=== PATIENT | female | born 1960 | race Caucasian/White ===

== ENCOUNTER 2016-07-12 20:33 | Inpatient (IN) | payer BC ==
[~2016-07-12] VITALS: Ht 162.6 cm; Wt 97.1 kg
--- NOTE | 2016-07-12 22:11 | PHYS DOC ---
Past Medical History Past Medical History: Cancer, Diabetes-Type II, Hypertension Additional Past Medical Histor: Sciatica Past Surgical History: Appendectomy Additional Past Surgical Histo: Nephrectomy, colectomy Alcohol Use: None Drug Use: None Adult General Chief Complaint Chief Complaint: MECHANICAL FALL [facility] HPI Patient is a 56 year old female presents emergency department stating that she' s been having an increase history of falling recently. She states that she has sciatic pain and discomfort in her left leg. She states today she was walking through her house and she fell patient states she has having right knee pain and discomfort. She also states that she has having right wrist pain and discomfort and shoulder pain and discomfort although she has full range of motion of her upper extremities. Patient does state she has pain in her right wrist. She is unable to fully provide range of motion with the wrist. Patient does have tenderness along the right knee. Patient does not have any other complaints at this time. Patient states that she has been having multiple falls at home recently. She states she does not use a walker at home. Originally denied any loss of consciousness denies any neck pain or discomfort other until palpation patient complained of neck discomfort. Review of Systems Review of Systems Constitutional: Denies fever or chills [] Eyes: Denies change in visual acuity, redness, or eye pain [] HENT: Denies nasal congestion or sore throat [] Respiratory: Denies cough or shortness of breath [] Cardiovascular: No additional information not addressed in HPI [] GI: Denies abdominal pain, nausea, vomiting, bloody stools or diarrhea [] : Denies dysuria or hematuria [] Musculoskeletal: Cervical pain, Right wrist and knee pain Integument: Denies rash or skin lesions [] Neurologic: Denies headache, focal weakness or sensory changes [] Allergies Allergies Allergies Coded Allergies Type Severity Reaction Last Updated Verified No Known Drug Allergies 07/12/16 No Physical Exam Physical Exam Constitutional: Well developed, well nourished, no acute distress, non-toxic appearance. [] HENT: Normocephalic, atraumatic, bilateral external ears normal, oropharynx moist, no oral exudates, nose normal. Bilateral tympanic membranes appear to be normal. Eyes: PERRLA, EOMI, conjunctiva normal, no discharge. [] Neck: Normal range of motion, no tenderness, supple, no stridor. [] Cardiovascular:Heart rate regular rhythm, no murmur [] Lungs & Thorax: Bilateral breath sounds clear to auscultation [] Skin: Warm, dry, no erythema, no rash. [] Back: Tenderness noted along the cervical spine, no deformities no step-offs and no crepitus noted. Extremities: Right wrist and right knee tenderness, no cyanosis, no clubbing, ROM intact, no edema. She with decreased range of motion of the right wrist. Patient was tender along the lateral medial and knee area. No bruising or deformity noted. Neurologic: Alert and oriented X 3, normal motor function, normal sensory function, no focal deficits noted. [] Psychologic: Affect normal, judgement normal, mood normal. [] Current Patient Data Vital Signs Vital Signs Date Time Temp Pulse Resp B/P Pulse Ox O2 Delivery O2 Flow Rate FiO2 07/12/16 22:30 98 140/82 Room Air 07/12/16 20:44 97.5 16 95 97.5 Lab Values Laboratory Tests Test 07/12/16 22:50 White Blood Count 9.5x10^3/uL (4.0-11.0) Red Blood Count 4.42x10^6/uL (3.50-5.40) Hemoglobin 12.4g/dL (12.0-15.5) Hematocrit 37.9% (36.0-47.0) Mean Corpuscular Volume 86fL (79-100) Mean Corpuscular Hemoglobin 28pg (25-35) Mean Corpuscular Hemoglobin Concent 33g/dL (31-37) Red Cell Distribution Width 13.7% (11.5-14.5) Platelet Count 200x10^3/uL (140-400) Neutrophils (%) (Auto) 65% (31-73) Lymphocytes (%) (Auto) 26% (24-48) Monocytes (%) (Auto) 6% (0-9) Eosinophils (%) (Auto) 2% (0-3) Basophils (%) (Auto) 1% (0-3) Neutrophils # (Auto) 6.1x10^3uL (1.8-7.7) Lymphocytes # (Auto) 2.5x10^3/uL (1.0-4.8) Monocytes # (Auto) 0.6x10^3/uL (0.0-1.1) Eosinophils # (Auto) 0.2x10^3/uL (0.0-0.7) Basophils # (Auto) 0.1x10^3/uL (0.0-0.2) Sodium Level 142mmol/L (136-145) Potassium Level 4.0mmol/L (3.5-5.1) Chloride Level 103mmol/L (98-107) Carbon Dioxide Level 30mmol/L (21-32) Anion Gap 9 (6-14) Blood Urea Nitrogen 23mg/dL (7-20) H Creatinine 1.5mg/dL (0.6-1.0) H Estimated GFR (Cockcroft-Gault) 35.7 Glucose Level 151mg/dL (70-99) H Calcium Level 9.8mg/dL (8.5-10.1) Laboratory Tests 07/12/16 22:50 Laboratory Tests 07/12/16 22:50 Radiology/Procedures Radiology/Procedures Right wrist x-ray as interpreted by me with no acute fracture or dislocation Right knee x-ray with no acute fracture or dislocation; large lytic lesion to the proximal lateral tibia Head CT without contrast IMPRESSION Large area of vasogenic edema in the left frontal lobe could be metastatic cancer or GBM or lymphoma. CT C-spine without contrast: Axial helical images of the cervical spine obtained without contrast and axial coronal sagittal reconstruction was performed. The vertebral bodies are aligned. There is no loss of vertebral body stature. The C1-C2 relationship is normal. There is no prevertebral soft tissue swelling. Evaluation of the central canal is limited without contrast. There is posterior disc osteophytic ridges at multiple levels causing flattening of the thecal sac. There does not appear to be gross flattening the cord. There is moderate narrowing of multiple neuroforamen. Cervical spine CT without contrast Impression Degenerative changes. No acute findings. See CT head without contrast. Electronically signed by: Andry Serra MD (Jul 12, 2016 22:37:14) Course & Med Decision Making Course & Med Decision Making Pertinent Labs and Imaging studies reviewed. (See chart for details) She was noted to have abnormal CT scan on prelim read. After talking with patient patient denies any history of stroke or brain abnormality in the past. Dr. Cho was notified of the CT information. CT report has not been confirmed at this time. Patient will be transferred over to the acute side. X-ray results of the wrist and knee are still pending at this time. Dr. Cho will continue with patient's care and admission process. Accepted care from Miroslava Rivera APRN, after CT head seen abnormal. Formal read as above concerning for mass. She states she has a history of renal cancer and colon cancer that were removed in 2012. She states she was told these were both primary lesions. She no longer follows with an oncologist. Have concern for metastatic disease given abnormality on head CT and right knee x-ray. Will admit for further workup. Discussed case with Dr. Patino, who will admit. Neurology and neurosurgery consultations placed. -Colton Cho MD [place] Disclaimer Dragon Disclaimer This electronic medical record was generated, in whole or in part, using a voice recognition dictation system. Departure Departure Impression: Primary Impression: Brain mass Additional Impressions: Bone lesion Multiple falls Right wrist pain Right knee pain Disposition: ADMITTED INPATIENT Condition: STABLE Referrals: SUSY PATINO MD (PCP) Problem Qualifiers Additional Impressions: Right knee pain Chronicity: acute Qualified Code: M25.561 - Pain in right knee MIROSLAVA RIVERA NP Jul 12, 2016 22:11 Leonor CHO MD Jul 12, 2016 23:27
--- NOTE | 2016-07-12 22:38 | RAD ---
PROCEDURE CT head and C-spine without contrast HISTORY Fall onto forehead has headache and neck pain CT HEAD WITHOUT CONTRAST Noncontrast axial cross sectional CT scanning of the head was performed. FINDINGS There is a large area of vasogenic edema in the left frontal lobe that results and 5 millimeter [id number] midline shift. There is no extra-axial fluid collections or hydrocephalus. There is no gross bleed. There is no loss of perez-white matter distinction to suggest ischemia. IMPRESSION Large area of vasogenic edema in the left frontal lobe could be metastatic cancer or GBM or lymphoma. CT C-spine without contrast: Axial helical images of the cervical spine obtained without contrast and axial coronal sagittal reconstruction was performed. The vertebral bodies are aligned. There is no loss of vertebral body stature. The C1-C2 relationship is normal. There is no prevertebral soft tissue swelling. Evaluation of the central canal is limited without contrast. There is posterior disc osteophytic ridges at multiple levels causing flattening of the thecal sac. There does not appear to be gross flattening the cord. There is moderate narrowing of multiple neuroforamen. Impression Degenerative changes. No acute findings. See CT head without contrast. PQRS Statement: One or more of the following individualized dose reduction techniques were utilized for this study: 1. Automated exposure control. 2. Adjustment of the mA and/or kV according to patient size. 3. Use of iterative reconstruction technique. Electronically signed by: Andry Serra MD (Jul 12, 2016 22:37:14)
[2016-07-12 22:59] LABS: BASO # 0.1 x10^3/uL (0.0-0.2); BASO % 1 % (0-3); EOS % 2 % (0-3); HEMATOCRIT 37.9 % (36.0-47.0); HEMOGLOBIN 12.4 g/dL (12.0-15.5); LYMPH # 2.5 x10^3/uL (1.0-4.8); LYMPH % 26 % (24-48); MEAN CORPUSCULAR HEMOGLOBIN 28 pg (25-35); MEAN CORPUSCULAR HGB CONC 33 g/dL (31-37); MEAN CORPUSCULAR VOLUME 86 fL (79-100); MONO % 6 % (0-9); NEUT % 65 % (31-73); PLATELET COUNT 200 x10^3/uL (140-400); RED BLOOD COUNT 4.42 x10^6/uL (3.50-5.40); RED CELL DISTRIBUTION WIDTH 13.7 % (11.5-14.5); WHITE BLOOD COUNT 9.5 x10^3/uL (4.0-11.0)
[2016-07-12 23:04] LABS: CALCIUM 9.8 mg/dL (8.5-10.1); CREATININE 1.5 mg/dL (0.6-1.0); GFR 35.7
[2016-07-12] MEDS ORDERED: ACETAMINOPHEN 325 MG TABLET. PO PRN (23:45)
[2016-07-12] MEDS ORDERED: MORPHINE SULFATE 4 MG/ML DISP.SYRIN. IV PRN (23:45)
[2016-07-12] MEDS ORDERED: ONDANSETRON PF 4 MG/2 ML VIAL. IV PRN (23:45)
[2016-07-13 00:27] VITALS: BP 180/85
[2016-07-13] MEDS ORDERED: AMLO5TAB4 PO (03:59)
[2016-07-13] MEDS ORDERED: INSULIN LISPRO (03:59)
[2016-07-13] MEDS ORDERED: LISI-334 PO (03:59)
[2016-07-13] MEDS ORDERED: ERGO500012 PO (03:59)
[2016-07-13] MEDS ORDERED: gabapentin PO (03:59)
[2016-07-13] MEDS ORDERED: INSU300I SQ (03:59)
[2016-07-13 07:36] VITALS: BP 176/97
--- NOTE | 2016-07-13 08:28 | RAD ---
Right knee, 3 views, 07/12/2016: History: Fall, injuries There is a lytic lesion in the proximal tibia. Its margins are ill-defined. There is cortical erosion laterally. There is cortical/periosteal thickening involving the proximal fibular shaft at this same level. No acute knee fracture or dislocation is evident. There is mild spurring at the knee joint and at the patellofemoral articulation. No joint effusion is seen. IMPRESSION: Destructive lesion involving the proximal tibia raising the possibility of malignancy or infection. MR scanning is suggested for further evaluation.
--- NOTE | 2016-07-13 08:29 | RAD ---
Right wrist, 3 views, 07/12/2016: History: Fall, pain No acute fracture or dislocation is identified. There is lucency with a well-defined sclerotic rim in the distal aspect of the navicular bone. The appearance is that of a benign cyst, probably on an arthritic basis. There is mild spurring at the first CMC joint. IMPRESSION: No acute bony abnormality is detected.
[2016-07-13] MEDS: INSULIN DETEMIR 300 UNITS/3 ML INSULN.PEN. SQ SCH (10:00)
[2016-07-13] MEDS: LISINOPRIL 20 MG TABLET PO SCH (10:18)
[2016-07-13] MEDS: AMLODIPINE BESYLATE 5 MG TABLET PO SCH (10:19)
[2016-07-13 11:59] VITALS: BP 188/78
--- NOTE | 2016-07-13 12:01 | PDOC ---
Provider Note Provider Note patient seen consult dictated see orders ANCELMO ZAVALA MD Jul 13, 2016 12:01
[2016-07-13] MEDS ORDERED: LORAZEPAM 0.5 MG TABLET. PO ONE (12:30)
[2016-07-13] MEDS ORDERED: LORAZEPAM 2 MG/ML VIAL IV ONE (13:30)
[2016-07-13] MEDS ORDERED: CONTRAST GIVEN MC PRN (13:45)
[2016-07-13] MEDS ORDERED: IOHEXOL 240 MG/ML 50ML VIAL. PO ONE (13:45)
[2016-07-13] MEDS ORDERED: GADOBUTROL 10 MMOL/10 ML VIAL IV ONE (15:00)
[2016-07-13] MEDS ORDERED: DEXTROSE 50% 25 GM / 50ML DISP.SYRIN. IV PRN (16:00)
--- NOTE | 2016-07-13 16:00 | PDOC ---
PROGRESS NOTES Subjective Subjective Patient admits to some right leg pain. Denies headache or visual problems. Objective Objective Vital Signs Date Time Temp Pulse Resp B/P Pulse Ox O2 Delivery O2 Flow Rate FiO2 07/13/16 11:59 97.4 86 20 188/78 95 Room Air 97.4 Intake and Output 07/13/16 07:00 Intake Total 210 ml Output Total 600 ml Balance -390 ml Intake Oral 210 ml Output Urine Total 600 ml Physical Exam Abdomen: Normal bowel sounds, Soft, No tenderness Heart: Regular rate Extremities: No edema General: Alert, Oriented X3, No acute distress Lungs: Clear to auscultation Assessment Assessment Problems Medical Problems: (1) Bone lesion Status: Acute (2) Brain mass Status: Acute (3) Multiple falls Status: Acute (4) Right knee pain Status: Acute (5) Right wrist pain Status: Acute Plan Plan of Care 1. Metastatic cancer - large brain lesion, also lytic lesion in right tibia. MRI brain and bone scan pending. Patient with history of colon cancer and renal cell cancer, both dx in 2012. Will consult Oncology to help with further evaluation and tx. Neurology and Neurosurgery following. 2. DM2 - not well controlled at home. Continue insulins. 3. HTN - continue home meds. 4. CKD III - stable, follow lab. Comment Review of Relevant I have reviewed the following items tiffany (where applicable) has been applied. Labs Laboratory Tests Test 07/12/16 22:50 07/13/16 00:18 07/13/16 07:54 07/13/16 11:43 White Blood Count 9.5x10^3/uL (4.0-11.0) Red Blood Count 4.42x10^6/uL (3.50-5.40) Hemoglobin 12.4g/dL (12.0-15.5) Hematocrit 37.9% (36.0-47.0) Mean Corpuscular Volume 86fL (79-100) Mean Corpuscular Hemoglobin 28pg (25-35) Mean Corpuscular Hemoglobin Concent 33g/dL (31-37) Red Cell Distribution Width 13.7% (11.5-14.5) Platelet Count 200x10^3/uL (140-400) Neutrophils (%) (Auto) 65% (31-73) Lymphocytes (%) (Auto) 26% (24-48) Monocytes (%) (Auto) 6% (0-9) Eosinophils (%) (Auto) 2% (0-3) Basophils (%) (Auto) 1% (0-3) Neutrophils # (Auto) 6.1x10^3uL (1.8-7.7) Lymphocytes # (Auto) 2.5x10^3/uL (1.0-4.8) Monocytes # (Auto) 0.6x10^3/uL (0.0-1.1) Eosinophils # (Auto) 0.2x10^3/uL (0.0-0.7) Basophils # (Auto) 0.1x10^3/uL (0.0-0.2) Sodium Level 142mmol/L (136-145) Potassium Level 4.0mmol/L (3.5-5.1) Chloride Level 103mmol/L (98-107) Carbon Dioxide Level 30mmol/L (21-32) Anion Gap 9 (6-14) Blood Urea Nitrogen 23mg/dL (7-20) Creatinine 1.5mg/dL (0.6-1.0) Estimated GFR (Cockcroft-Gault) 35.7 Glucose Level 151mg/dL (70-99) Calcium Level 9.8mg/dL (8.5-10.1) Glucose (Fingerstick) 144mg/dL (70-99) 178mg/dL (70-99) 209mg/dL (70-99) Laboratory Tests Test 07/12/16 22:50 07/13/16 00:18 07/13/16 07:54 07/13/16 11:43 White Blood Count 9.5x10^3/uL (4.0-11.0) Red Blood Count 4.42x10^6/uL (3.50-5.40) Hemoglobin 12.4g/dL (12.0-15.5) Hematocrit 37.9% (36.0-47.0) Mean Corpuscular Volume 86fL (79-100) Mean Corpuscular Hemoglobin 28pg (25-35) Mean Corpuscular Hemoglobin Concent 33g/dL (31-37) Red Cell Distribution Width 13.7% (11.5-14.5) Platelet Count 200x10^3/uL (140-400) Neutrophils (%) (Auto) 65% (31-73) Lymphocytes (%) (Auto) 26% (24-48) Monocytes (%) (Auto) 6% (0-9) Eosinophils (%) (Auto) 2% (0-3) Basophils (%) (Auto) 1% (0-3) Neutrophils # (Auto) 6.1x10^3uL (1.8-7.7) Lymphocytes # (Auto) 2.5x10^3/uL (1.0-4.8) Monocytes # (Auto) 0.6x10^3/uL (0.0-1.1) Eosinophils # (Auto) 0.2x10^3/uL (0.0-0.7) Basophils # (Auto) 0.1x10^3/uL (0.0-0.2) Sodium Level 142mmol/L (136-145) Potassium Level 4.0mmol/L (3.5-5.1) Chloride Level 103mmol/L (98-107) Carbon Dioxide Level 30mmol/L (21-32) Anion Gap 9 (6-14) Blood Urea Nitrogen 23mg/dL (7-20) Creatinine 1.5mg/dL (0.6-1.0) Estimated GFR (Cockcroft-Gault) 35.7 Glucose Level 151mg/dL (70-99) Calcium Level 9.8mg/dL (8.5-10.1) Glucose (Fingerstick) 144mg/dL (70-99) 178mg/dL (70-99) 209mg/dL (70-99) Medications Current Medications Ondansetron HCl (Zofran) 4 mg PRN Q8HRS PRN IV NAUSEA/VOMITING; Start 07/12/16 at 23:45; Stop 07/13/16 at 23:44 Morphine Sulfate 4 mg PRN Q2HR PRN IV PAIN; Start 07/12/16 at 23:45; Stop 07/13 at 23:44 Acetaminophen (Tylenol) 650 mg PRN Q4HRS PRN PO FEVER Last administered on 07/13 00:55; Start 07/12/16 at 23:45; Stop 07/13/16 at 23:44 Amlodipine Besylate (Norvasc) 5 mg DAILY08 PO Last administered on 07/13/16 10 :19; Start 07/13/16 at 10:00 Lisinopril (Prinivil) 20 mg DAILY PO Last administered on 07/13/16 10:18; Start 07/13/16 at 10:00 Insulin Detemir (Levemir) 20 units DAILY SQ ; Start 07/13/16 at 10:00 Lorazepam (Ativan) 0.25 mg 1X ONCE PO Last administered on 07/13/16 12:38; Start 07/13/16 at 12:30; Stop 07/13/16 at 12:31; Status DC Lorazepam (Ativan) 0.25 mg 1X ONCE IV Last administered on 07/13/16 14:10; Start 07/13/16 at 13:30; Stop 07/13/16 at 13:31; Status DC Iohexol (Omnipaque 240 Mg/ml) 50 ml 1X ONCE PO Last administered on 07/13/16 14:14; Start 07/13/16 at 13:45; Stop 07/13/16 at 13:46; Status DC Info (Do NOT chart on this entry -- for MONITORING) 1 each PRN DAILY PRN MC SEE COMMENTS; Start 07/13/16 at 13:45; Stop 07/15/16 at 13:44 Gadobutrol (Gadavist) 10 mmol 1X ONCE IV Last administered on 07/13/16 15:04 ; Start 07/13/16 at 15:00; Stop 07/13/16 at 15:01 Active Scripts Active Reported [insulin lispro] [gabapentin] PO DAILY Lisinopril 20 Mg Tablet 1 Tab PO DAILY Ida Bartonostar (Insulin Glargine,Hum.rec.anlog) 300 Unit/1 Ml Insuln.pen 25 Unit SQ DAILY Vitamin D2 (Ergocalciferol (Vitamin D2)) 50,000 Unit Capsule 1 Cap PO WEEKLY Norvasc (Amlodipine Besylate) 5 Mg Tablet 1 Tab PO DAILY08 Vitals/I & O Vital Sign - Last 24 Hours 07/12/16 07/12/16 07/12/16 07/12/16 20:44 22:30 23:00 23:30 Temp 97.5 97.5 Pulse 91 98 92 86 Resp 16 B/P 143/83 140/82 188/74 Pulse Ox 95 95 O2 Delivery Room Air Room Air Room Air Room Air 07/13/16 07/13/16 07/13/16 07/13/16 00:27 02:32 03:15 07:36 Temp 97.7 97.7 97.7 97.7 Pulse 96 103 Resp 20 20 B/P 180/85 176/97 Pulse Ox 99 96 O2 Delivery Room Air Room Air Room Air Room Air 07/13/16 07/13/16 07/13/16 07/13/16 08:00 10:18 10:19 11:59 Temp 97.4 97.4 Pulse 103 103 86 Resp 20 B/P 176/97 176/97 188/78 Pulse Ox 95 O2 Delivery Room Air Room Air Intake and Output 07/12/16 07/12/16 07/13/16 15:00 23:00 07:00 Intake Total 210 ml Output Total 600 ml Balance -390 ml SUSY TOLENTINO MD Jul 13, 2016 16:00
--- NOTE | 2016-07-13 16:14 | RAD ---
MR of the brain with gadolinium, 07/13/2016: History: Brain lesion Imaging of the brain was performed in axial, sagittal and coronal planes utilizing a variety of imaging sequences including T1-weighted, T2-weighted, FLAIR, diffusion-weighted and T2*gradient echo sequences. T1-weighted scans were also obtained following IV injection of 10 cc of the Gadavist contrast agent. There is a 19 mm enhancing mass in the left frontoparietal parasagittal region. There is extensive surrounding vasogenic edema with effacement of overlying cortical sulci. There is a mild mass effect upon the superior aspect of the left lateral ventricle with a mild [id number] midline shift at this level. The third ventricle is not significantly shifted. No other enhancing intracranial lesion is identified. A small signal abnormality in the periventricular deep white matter on the right seen on the FLAIR sequence does not enhance or show restricted diffusion. This is compatible with a small area of chronic ischemic change. The cerebellum and brainstem are unremarkable. IMPRESSION: Single enhancing left frontoparietal mass, most likely a metastasis.
--- NOTE | 2016-07-13 16:14 | RAD ---
CT of the chest, abdomen and pelvis with without contrast, 07/13/2016: History: Brain mass, previous renal cancer and colon cancer Noncontrast scans were obtained as requested. There are multiple bilateral soft tissue pulmonary nodules. The largest nodule on the right lies in the upper lobe and measures 10 mm. There is a 13 mm lobulated nodule in the lingula on the left. Multiple other smaller nodules are present in all of the lobes. The findings suggest metastatic disease. The thoracic aorta is of normal caliber. There is a mildly enlarged subcarinal lymph node measuring 17 mm. There is a 13 mm mediastinal lymph node along the left side of the main pulmonary artery. The unopacified liver shows no abnormality. A small radiopacity along the posterior wall the gallbladder is compatible with a collection of tiny calculi. No pancreatic abnormality is seen. The spleen is of normal size. The left kidney is surgically absent. There is a 17 mm left periaortic nodule at the renal level. The adrenal glands and unopacified right kidney are unremarkable. No pelvic adenopathy is evident. The bowel loops are not dilated. No free fluid is present in the abdomen. There is a ventral hernia centered just to the right of midline above the level of the umbilicus. It contains small bowel loops without evidence of obstruction or incarceration. There are scattered degenerative changes in the spine. Several small lucencies are seen in vertebral bodies including L2 and L3. There is a lucent lesion in the left femoral neck. A definite lytic lesion is present in the medial aspect of the left iliac bone. An 11 mm nodule is present medially in the right breast. IMPRESSION: 1. Numerous bilateral pulmonary nodules compatible with metastatic disease. 2. Mild mediastinal adenopathy. 3. Enlarged left periaortic lymph node at the left nephrectomy site, compatible with tumor recurrence. 4. Scattered lytic bony lesions compatible with multifocal osseous metastatic disease. 5. Ventral hernia containing a nonobstructed bowel loops. 6. Cholelithiasis. 7. Small right breast mass. PQRS Compliance Statement: One or more of the following individualized dose reduction techniques were utilized for this examination: 1. Automated exposure control 2. Adjustment of the mA and/or kV according to patient size 3. Use of iterative reconstruction technique
--- NOTE | 2016-07-13 16:25 | PDOC2 ---
CONSULT Date of Consult Date of Consult DATE: 07/13/16 TIME: 16:20 Reason for Consult Reason for Consult: brain lesion Identification/Chief Complaint Chief Complaint right sided weakness History of Present Illness Reason for Visit: This patient is 56-year-old woman who presented to the emergency room with complaint of having falls recently. She is having some pain in her left leg and also has chronic back pains. She reports she was walking through her house and patient fell states with complaints of some pain in her right knee and discomfort. Patient has been having multiple falls at home which are increased recently she is not using any walker at home. Patient denies any history of previous stroke, seizures, any of incontinence of bladder or bowel or loss of consciousness. Metastasis with history of colon cancer, renal cell cancer Large brain lesion noted on CT scan Will check MRI brain to further evaluate Current Problem List Problem List Problems Medical Problems: (1) Bone lesion Status: Acute (2) Brain mass Status: Acute (3) Multiple falls Status: Acute (4) Right knee pain Status: Acute (5) Right wrist pain Status: Acute Current Medications Current Medications Current Medications Ondansetron HCl (Zofran) 4 mg PRN Q8HRS PRN IV NAUSEA/VOMITING; Start 07/12/16 at 23:45; Stop 07/13/16 at 23:44 Morphine Sulfate 4 mg PRN Q2HR PRN IV PAIN; Start 07/12/16 at 23:45; Stop 07/13 at 23:44 Acetaminophen (Tylenol) 650 mg PRN Q4HRS PRN PO FEVER Last administered on 07/13 00:55; Start 07/12/16 at 23:45; Stop 07/13/16 at 23:44 Amlodipine Besylate (Norvasc) 5 mg DAILY08 PO Last administered on 07/13/16 10 :19; Start 07/13/16 at 10:00 Lisinopril (Prinivil) 20 mg DAILY PO Last administered on 07/13/16 10:18; Start 07/13/16 at 10:00 Insulin Detemir (Levemir) 20 units DAILY SQ ; Start 07/13/16 at 10:00 Lorazepam (Ativan) 0.25 mg 1X ONCE PO Last administered on 07/13/16 12:38; Start 07/13/16 at 12:30; Stop 07/13/16 at 12:31; Status DC Lorazepam (Ativan) 0.25 mg 1X ONCE IV Last administered on 07/13/16 14:10; Start 07/13/16 at 13:30; Stop 07/13/16 at 13:31; Status DC Iohexol (Omnipaque 240 Mg/ml) 50 ml 1X ONCE PO Last administered on 07/13/16 14:14; Start 07/13/16 at 13:45; Stop 07/13/16 at 13:46; Status DC Info (Do NOT chart on this entry -- for MONITORING) 1 each PRN DAILY PRN MC SEE COMMENTS; Start 07/13/16 at 13:45; Stop 07/15/16 at 13:44 Gadobutrol (Gadavist) 10 mmol 1X ONCE IV Last administered on 07/13/16 15:04 ; Start 07/13/16 at 15:00; Stop 07/13/16 at 15:01 Insulin Aspart (Novolog) 0-9 UNITS TIDWMEALS SQ ; Start 07/13/16 at 17:00 Dextrose 12.5 gm PRN Q15MIN PRN IV SEE COMMENTS; Start 07/13/16 at 16:00 Gabapentin (Neurontin) 100 mg BID PO ; Start 07/13/16 at 21:00 Insulin Aspart (Novolog) 10 units TIDAC SQ ; Start 07/13/16 at 16:30 Active Scripts Active Reported [insulin lispro] [gabapentin] PO DAILY Lisinopril 20 Mg Tablet 1 Tab PO DAILY Toujeo Solostar (Insulin Glargine,Hum.rec.anlog) 300 Unit/1 Ml Insuln.pen 25 Unit SQ DAILY Vitamin D2 (Ergocalciferol (Vitamin D2)) 50,000 Unit Capsule 1 Cap PO WEEKLY Norvasc (Amlodipine Besylate) 5 Mg Tablet 1 Tab PO DAILY08 Allergies Allergies: Coded Allergies: No Known Drug Allergies (Unverified , 07/12/16) ROS Review of System not [id number] review of systems. Physical Exam Physical Exam PHYSICAL EXAMINATION: General appearance is in acute distress. HEENT: Normocephalic and nontraumatic. Eyes, nose, ears, and throat are unremarkable. Neck is supple. No lymphadenopathy. No crepitus. Cardiovascular: S1, S2, regular rate and rhythm. Pulmonary: Clear to auscultation bilaterally. Abdomen: Bowel sounds are positive. Abdomen is soft, nontender, and nondistended. Extremities: No rash, lesions, or edema. No restriction of range of motion NEUROLOGICAL EXAMINATION: Alert Oriented to time, place and person. PERRL. EOMI. CN: no focal findings. Muscle tone: within normal. Muscle strength: 5 on left right sided weakness DTR: 2 Plantar reflex: Flexor response bilaterally Gait: not examined in bed. Sensory exam: no abnormal findings. No obvious cerebellar signs elicited. Vitals VITALS Vital Signs Date Time Temp Pulse Resp B/P Pulse Ox O2 Delivery O2 Flow Rate FiO2 07/13/16 11:59 97.4 86 20 188/78 95 Room Air 97.4 Labs Labs Laboratory Tests Test 07/12/16 22:50 07/13/16 00:18 07/13/16 07:54 07/13/16 11:43 White Blood Count 9.5x10^3/uL (4.0-11.0) Red Blood Count 4.42x10^6/uL (3.50-5.40) Hemoglobin 12.4g/dL (12.0-15.5) Hematocrit 37.9% (36.0-47.0) Mean Corpuscular Volume 86fL (79-100) Mean Corpuscular Hemoglobin 28pg (25-35) Mean Corpuscular Hemoglobin Concent 33g/dL (31-37) Red Cell Distribution Width 13.7% (11.5-14.5) Platelet Count 200x10^3/uL (140-400) Neutrophils (%) (Auto) 65% (31-73) Lymphocytes (%) (Auto) 26% (24-48) Monocytes (%) (Auto) 6% (0-9) Eosinophils (%) (Auto) 2% (0-3) Basophils (%) (Auto) 1% (0-3) Neutrophils # (Auto) 6.1x10^3uL (1.8-7.7) Lymphocytes # (Auto) 2.5x10^3/uL (1.0-4.8) Monocytes # (Auto) 0.6x10^3/uL (0.0-1.1) Eosinophils # (Auto) 0.2x10^3/uL (0.0-0.7) Basophils # (Auto) 0.1x10^3/uL (0.0-0.2) Sodium Level 142mmol/L (136-145) Potassium Level 4.0mmol/L (3.5-5.1) Chloride Level 103mmol/L (98-107) Carbon Dioxide Level 30mmol/L (21-32) Anion Gap 9 (6-14) Blood Urea Nitrogen 23mg/dL (7-20) Creatinine 1.5mg/dL (0.6-1.0) Estimated GFR (Cockcroft-Gault) 35.7 Glucose Level 151mg/dL (70-99) Calcium Level 9.8mg/dL (8.5-10.1) Glucose (Fingerstick) 144mg/dL (70-99) 178mg/dL (70-99) 209mg/dL (70-99) Laboratory Tests Test 07/12/16 22:50 07/13/16 00:18 07/13/16 07:54 07/13/16 11:43 White Blood Count 9.5x10^3/uL (4.0-11.0) Red Blood Count 4.42x10^6/uL (3.50-5.40) Hemoglobin 12.4g/dL (12.0-15.5) Hematocrit 37.9% (36.0-47.0) Mean Corpuscular Volume 86fL (79-100) Mean Corpuscular Hemoglobin 28pg (25-35) Mean Corpuscular Hemoglobin Concent 33g/dL (31-37) Red Cell Distribution Width 13.7% (11.5-14.5) Platelet Count 200x10^3/uL (140-400) Neutrophils (%) (Auto) 65% (31-73) Lymphocytes (%) (Auto) 26% (24-48) Monocytes (%) (Auto) 6% (0-9) Eosinophils (%) (Auto) 2% (0-3) Basophils (%) (Auto) 1% (0-3) Neutrophils # (Auto) 6.1x10^3uL (1.8-7.7) Lymphocytes # (Auto) 2.5x10^3/uL (1.0-4.8) Monocytes # (Auto) 0.6x10^3/uL (0.0-1.1) Eosinophils # (Auto) 0.2x10^3/uL (0.0-0.7) Basophils # (Auto) 0.1x10^3/uL (0.0-0.2) Sodium Level 142mmol/L (136-145) Potassium Level 4.0mmol/L (3.5-5.1) Chloride Level 103mmol/L (98-107) Carbon Dioxide Level 30mmol/L (21-32) Anion Gap 9 (6-14) Blood Urea Nitrogen 23mg/dL (7-20) Creatinine 1.5mg/dL (0.6-1.0) Estimated GFR (Cockcroft-Gault) 35.7 Glucose Level 151mg/dL (70-99) Calcium Level 9.8mg/dL (8.5-10.1) Glucose (Fingerstick) 144mg/dL (70-99) 178mg/dL (70-99) 209mg/dL (70-99) Assessment/Plan Assessment/Plan This patient is 56-year-old woman who presented to the emergency room with complaint of having falls recently. She is having some pain in her left leg and also has chronic back pains. She reports she was walking through her house and patient fell states with complaints of some pain in her right knee and discomfort. Patient has been having multiple falls at home which are increased recently she is not using any walker at home. Patient denies any history of previous stroke, seizures, any of incontinence of bladder or bowel or loss of consciousness. Metastasis to the history of colon cancer, renal cell cancer Large brain lesion noted on CT scan Will check MRI brain to further evaluate Bone scan Neurosurgery consultation Oncologic consultation History of diabetes continue treat and monitor Hypertension continue treat and monitor History of chronic kidney disease Continue medical management LEILA MAN MD Jul 13, 2016 16:25
[2016-07-13] MEDS: INSULIN ASPART 300 UNITS/3 ML INSULN.PEN SQ SCH ×2 (17:00→18:10)
--- NOTE | 2016-07-13 17:58 | HP ---
ADMIT DATE: 07/13/2016 CHIEF COMPLAINT: Falls at home and right leg pain. HISTORY OF PRESENT ILLNESS: The patient is a 56-year-old female with a history of colon cancer and renal cell cancer, who presented to the Emergency Room with the above complaint. She reported increasing weakness and falls at home for about the past week. It was unusual for her to have these falls and her family grew concerned. She also had some unusual pain in her right leg and knee, but had not injured her knee with the falls. Initial evaluation in the Emergency Room included a CT of the head without contrast. This showed a large area of vasogenic edema in the left frontal lobe with a midline shift and the patient was admitted for further evaluation. PAST MEDICAL HISTORY: Renal cell cancer, colon cancer, diabetes mellitus type 2 insulin-dependent, hypertension, and chronic kidney disease. PAST SURGICAL HISTORY: Colectomy 12/2012, left nephrectomy 12/2012, and bilateral tubal ligation. ALLERGIES: The patient has no known drug allergies. HOME MEDICATIONS: Amlodipine 5 mg daily, lisinopril 20 mg daily, Toujeo 25 units subQ daily, atorvastatin 20 mg daily, Humalog insulin, and gabapentin 100 mg b.i.d. FAMILY HISTORY: Noncontributory. SOCIAL HISTORY: The patient is , but her is incarcerated. She does not smoke cigarettes or drink alcohol. REVIEW OF SYSTEMS: The patient denies fever or chills. She denies cough or shortness of breath. She denies chest pain or palpitations. She denies unusual headache, double vision, or blurred vision. She denies abdominal pain, nausea, or vomiting. She denies lower extremity edema. Her blood sugars have been fairly well controlled with her insulins. [facility] The patient admits she has not been seen at [facility] for routine followup for several years, although she knows that this was advised. PHYSICAL EXAMINATION: GENERAL: The patient is alert and oriented x3, resting in bed, in no acute distress. HEENT: PERRL, EOMI, sclerae clear. Oropharynx: Mucous membranes moist. NECK: Supple, without lymphadenopathy. CHEST: Clear to auscultation. CARDIOVASCULAR: Regular rhythm without murmur. ABDOMEN: Soft, nontender, normoactive bowel sounds are present. EXTREMITIES: Without edema. ASSESSMENT AND PLAN: 1. Metastatic cancer. The patient has a large lesion in the brain. A lytic lesion was also seen in the proximal right tibia. MRI of the brain and bone scan are pending. The patient will be seen by Neurosurgery and Neurology. We will also consult Oncology to help with further evaluation and treatment. 2. Diabetes mellitus type 2. This is not usually well controlled. We will continue her insulins and adjust as needed. 3. Hypertension. Continue home medications. 4. Chronic kidney disease stage III. This appears stable on the lab. We will continue to follow this. SUSY TOLENTINO MD DR: KAYLA/nikkie JOB#: [id number] / [id number] AUREA
[2016-07-13 19:00] VITALS: BP 159/69
--- NOTE | 2016-07-13 19:55 | CONS ---
DATE OF CONSULTATION: 07/13/2016 REASON FOR CONSULTATION: Left frontal lesion. 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 She says she has had some pain in her right leg as well. She reports falling several times. She says she feels as though her arm function has improved slightly recently, but says that the primary problem is that it is clumsy. Because of repeated falls, she was seen in the Emergency Room and admitted. PAST MEDICAL HISTORY: Includes history of colon cancer and kidney cancer for which she underwent surgery in 2012. There was no other treatment given to her. She says she is currently not being followed by an oncologist. PAST MEDICAL HISTORY: Other than above, includes diabetes. ALLERGIES: There are no allergies to medications. MEDICATIONS: Reviewed on the [facility]AD. REVIEW OF SYSTEMS: A 12-point review of systems was performed and other than outlined above was negative. PHYSICAL EXAMINATION: GENERAL: She is seated in bed. She is pleasant, alert and cooperative. Denies any significant pain at this time. NEUROLOGIC: Her pupils were equal and reactive with extraocular motor function intact. Facial motor and facial sensory examination was normal. Lower cranial nerves were intact. On motor testing, her strength was 5/5 in her left upper and left lower extremities. On the right side, strength was 4/5 in her right upper extremity and 3/5 to 4/5 in her right lower extremity. On sensory testing, she was intact to light touch in the upper and lower extremities. Reflex testing, she was hyporeflexic on the right side. There was full range of motion of upper and lower extremities bilaterally. LABORATORY DATA: I reviewed a CT scan of the head. On that study, there was edema in the left frontal region. There was some mass effect associated with this. On the right knee film, there appears to be a lytic lesion in the right proximal tibia. IMPRESSION: I am concerned that this may present a metastatic disease from one of her two primary tumors. She is scheduled to have an MRI of the brain today. I have ordered a chest, abdomen and pelvis CT as well as a bone scan. I appreciate asking us to see her. ANCELMO ZAVALA MD DR: NITHIN/nikkie JOB#: [id number] / [id number] AUREA
[2016-07-13] MEDS: GABAPENTIN 100 MG CAPSULE. PO SCH (20:33)
[2016-07-13] MEDS ORDERED: INSULIN DETEMIR 300 UNITS/3 ML INSULN.PEN. SQ SCH (21:00)
[2016-07-13 23:00] VITALS: BP 149/81
[2016-07-14 03:00] VITALS: BP 150/87
[2016-07-14 07:00] VITALS: BP 153/78
--- NOTE | 2016-07-14 07:32 | RAD ---
Radionuclide bone scan, 07/13/2016: History: Brain mass, metastatic disease Whole body imaging was performed following IV injection of 25 mCi of technetium 99m MDP. No previous bone scan is available at this time for comparison purposes. The following findings are delineated: 1. There is increased activity in the medial aspect of the left iliac bone corresponding to a lytic lesion seen on recent CT study. Metastatic disease is likely. There is an additional small focus of increased activity in the right sacral wing. 2. There is markedly increased activity at the proximal right tibial level corresponding to a known large lytic lesion. 3. There is a tiny focus of increased activity in the left femoral shaft just proximal to its midpoint. An early metastasis is suspected. 4. There is mildly increased activity in the upper lumbar spine at approximately the L1 level, and to a lesser degree at approximately the L3 level on the right. 5. Areas of mildly increased activity at the left shoulder, left knee and left ankle may be on an arthritic basis, although additional metastases cannot be excluded. IMPRESSION: Multifocal osseous abnormalities as described above compatible with metastatic disease.
[2016-07-14] MEDS: GABAPENTIN 100 MG CAPSULE. PO SCH ×2 (08:53→21:44)
[2016-07-14] MEDS: LISINOPRIL 20 MG TABLET PO SCH (08:53)
[2016-07-14] MEDS: AMLODIPINE BESYLATE 5 MG TABLET PO SCH (08:54)
[2016-07-14] MEDS: INSULIN ASPART 300 UNITS/3 ML INSULN.PEN SQ SCH ×6 (08:56→18:18)
[2016-07-14 10:25] LABS: ALBUMIN 3.5 g/dL (3.4-5.0); ALBUMIN/GLOBULIN RATIO 0.9 (1.0-1.7); CALCIUM 9.5 mg/dL (8.5-10.1); CREATININE 1.6 mg/dL (0.6-1.0); GFR 33.1; POTASSIUM 4.1 mmol/L (3.5-5.1); TOTAL BILIRUBIN 0.5 mg/dL (0.2-1.0); TOTAL PROTEIN 7.2 g/dL (6.4-8.2)
[2016-07-14 10:53] VITALS: BP 127/60
[2016-07-14] MEDS ORDERED: LORAZEPAM 0.5 MG TABLET. PO ONE (11:15)
--- NOTE | 2016-07-14 12:09 | PDOC2 ---
CONSULT Date of Consult Date of Consult DATE: 07/14/16 TIME: 11:56 Reason for Consult Reason for Consult: Brain metastasis Renal cell carcinoma Colon cancer Referring Physician Referring Physician: Dr Murdock Identification/Chief Complaint Chief Complaint Weakness Source Source: Chart review, Patient History of Present Illness Reason for Visit: 56yo with following oncologic history: - Right-sided colon cancer resected 2012. No adjuvant therapy indicated. Stage unknown. - Left RCCa s/p nephrectomy 2012. Stage unknown. - Has not had any oncologic follow up since resections. Presented here with falls and right sided weakness. Found to have left brain mass, multifocal bone lesions, and pulmonary metastases. Today continues to feel weak. No loss of bowel or bladder. Back pain is chronic for many years and unchanged. Anxious to get started. Past Medical History Heme/Onc: Cancer Endocrine: Diabetes Past Surgical History Past Surgical History: Colon Resection, Other (left nephrectomy) Family History Family History: Other (Liver cancer in both parents, both of whom were alcoholics) Social History No ALCOHOL: rare Drugs: None Lives: with Family Current Problem List Problem List Problems Medical Problems: (1) Bone lesion Status: Acute (2) Brain mass Status: Acute (3) Multiple falls Status: Acute (4) Right knee pain Status: Acute (5) Right wrist pain Status: Acute Current Medications Current Medications Current Medications Ondansetron HCl (Zofran) 4 mg PRN Q8HRS PRN IV NAUSEA/VOMITING; Start 07/12/16 at 23:45; Stop 07/13/16 at 23:44; Status DC Morphine Sulfate 4 mg PRN Q2HR PRN IV PAIN; Start 07/12/16 at 23:45; Stop 07/13 at 23:44; Status DC Acetaminophen (Tylenol) 650 mg PRN Q4HRS PRN PO FEVER Last administered on 07/13 00:55; Start 07/12/16 at 23:45; Stop 07/13/16 at 23:44; Status DC Amlodipine Besylate (Norvasc) 5 mg DAILY08 PO Last administered on 07/14/16 08 :54; Start 07/13/16 at 10:00 Lisinopril (Prinivil) 20 mg DAILY PO Last administered on 07/14/16 08:53; Start 07/13/16 at 10:00 Insulin Detemir (Levemir) 20 units DAILY SQ ; Start 07/13/16 at 10:00; Stop at 19:09; Status DC Lorazepam (Ativan) 0.25 mg 1X ONCE PO Last administered on 07/13/16 12:38; Start 07/13/16 at 12:30; Stop 07/13/16 at 12:31; Status DC Lorazepam (Ativan) 0.25 mg 1X ONCE IV Last administered on 07/13/16 14:10; Start 07/13/16 at 13:30; Stop 07/13/16 at 13:31; Status DC Iohexol (Omnipaque 240 Mg/ml) 50 ml 1X ONCE PO Last administered on 07/13/16 14:14; Start 07/13/16 at 13:45; Stop 07/13/16 at 13:46; Status DC Info (Do NOT chart on this entry -- for MONITORING) 1 each PRN DAILY PRN MC SEE COMMENTS; Start 07/13/16 at 13:45; Stop 07/15/16 at 13:44 Gadobutrol (Gadavist) 10 mmol 1X ONCE IV Last administered on 07/13/16 15:04 ; Start 07/13/16 at 15:00; Stop 07/13/16 at 17:10; Status DC Insulin Aspart (Novolog) 0-9 UNITS TIDWMEALS SQ Last administered on 07/14/16 08:56; Start 07/13/16 at 17:00 Dextrose 12.5 gm PRN Q15MIN PRN IV SEE COMMENTS; Start 07/13/16 at 16:00 Gabapentin (Neurontin) 100 mg BID PO Last administered on 07/14/16 08:53; Start 07/13/16 at 21:00 Insulin Aspart (Novolog) 10 units TIDAC SQ Last administered on 07/14/16 08:56 ; Start 07/13/16 at 16:30 Insulin Detemir (Levemir) 20 units QHS SQ Last administered on 07/13/16 22:16 ; Start 07/13/16 at 21:00 Lorazepam (Ativan) 0.5 mg 1X ONCE PO ; Start 07/14/16 at 11:15; Stop 07/14/16 at 11:16; Status DC Active Scripts Active Reported [insulin lispro] [gabapentin] PO DAILY Lisinopril 20 Mg Tablet 1 Tab PO DAILY Ida Solostar (Insulin Glargine,Hum.rec.anlog) 300 Unit/1 Ml Insuln.pen 25 Unit SQ DAILY Vitamin D2 (Ergocalciferol (Vitamin D2)) 50,000 Unit Capsule 1 Cap PO WEEKLY Norvasc (Amlodipine Besylate) 5 Mg Tablet 1 Tab PO DAILY08 Allergies Allergies: Coded Allergies: No Known Drug Allergies (Unverified , 07/12/16) ROS General: No: Chills PSYCHOLOGICAL ROS: No: Anxiety Eyes: No Blurry vision HEENT: No: Heacaches ALLERGY AND IMMUNOLOGY: No: Nasal Congestion Hematological and Lymphatic: No: Blood Clots Respiratory: No: Cough, Hemoptysis Cardiovascular: No Chest Pain Gastrointestinal: No Nausea Genitourinary: No Dysuria Musculoskeletal: Yes Gait Disturbance Neurological: No Behavorial Changes Skin: No Rash Physical Exam General: Alert, Oriented X3 HEENT: Atraumatic Lungs: Clear to auscultation Heart: Regular rate Abdomen: Soft, No tenderness Extremities: No clubbing Skin: No rashes Neuro: Other (RLE 4+/5, RUE 4/5, Left side 5/5.) Psych/Mental Status: Mental status NL MUSCULOSKELETAL: No joint tenderness Vitals VITALS Vital Signs Date Time Temp Pulse Resp B/P Pulse Ox O2 Delivery O2 Flow Rate FiO2 07/14/16 10:53 98.6 93 16 127/60 93 Room Air 98.6 Labs Labs Laboratory Tests Test 07/12/16 22:50 07/13/16 00:18 07/13/16 07:54 07/13/16 11:43 White Blood Count 9.5x10^3/uL (4.0-11.0) Red Blood Count 4.42x10^6/uL (3.50-5.40) Hemoglobin 12.4g/dL (12.0-15.5) Hematocrit 37.9% (36.0-47.0) Mean Corpuscular Volume 86fL (79-100) Mean Corpuscular Hemoglobin 28pg (25-35) Mean Corpuscular Hemoglobin Concent 33g/dL (31-37) Red Cell Distribution Width 13.7% (11.5-14.5) Platelet Count 200x10^3/uL (140-400) Neutrophils (%) (Auto) 65% (31-73) Lymphocytes (%) (Auto) 26% (24-48) Monocytes (%) (Auto) 6% (0-9) Eosinophils (%) (Auto) 2% (0-3) Basophils (%) (Auto) 1% (0-3) Neutrophils # (Auto) 6.1x10^3uL (1.8-7.7) Lymphocytes # (Auto) 2.5x10^3/uL (1.0-4.8) Monocytes # (Auto) 0.6x10^3/uL (0.0-1.1) Eosinophils # (Auto) 0.2x10^3/uL (0.0-0.7) Basophils # (Auto) 0.1x10^3/uL (0.0-0.2) Sodium Level 142mmol/L (136-145) Potassium Level 4.0mmol/L (3.5-5.1) Chloride Level 103mmol/L (98-107) Carbon Dioxide Level 30mmol/L (21-32) Anion Gap 9 (6-14) Blood Urea Nitrogen 23mg/dL (7-20) Creatinine 1.5mg/dL (0.6-1.0) Estimated GFR (Cockcroft-Gault) 35.7 Glucose Level 151mg/dL (70-99) Calcium Level 9.8mg/dL (8.5-10.1) Glucose (Fingerstick) 144mg/dL (70-99) 178mg/dL (70-99) 209mg/dL (70-99) Test 07/13/16 18:06 07/13/16 20:50 07/14/16 08:14 07/14/16 09:50 Glucose (Fingerstick) 135mg/dL (70-99) 188mg/dL (70-99) 167mg/dL (70-99) Sodium Level 137mmol/L (136-145) Potassium Level 4.1mmol/L (3.5-5.1) Chloride Level 102mmol/L (98-107) Carbon Dioxide Level 26mmol/L (21-32) Anion Gap 9 (6-14) Blood Urea Nitrogen 22mg/dL (7-20) Creatinine 1.6mg/dL (0.6-1.0) Estimated GFR (Cockcroft-Gault) 33.1 BUN/Creatinine Ratio 14 (6-20) Glucose Level 304mg/dL (70-99) Calcium Level 9.5mg/dL (8.5-10.1) Total Bilirubin 0.5mg/dL (0.2-1.0) Aspartate Amino Transf (AST/SGOT) 17U/L (15-37) Alanine Aminotransferase (ALT/SGPT) 21U/L (14-59) Alkaline Phosphatase 88U/L (46-116) Total Protein 7.2g/dL (6.4-8.2) Albumin 3.5g/dL (3.4-5.0) Albumin/Globulin Ratio 0.9 (1.0-1.7) Test 07/14/16 11:14 Glucose (Fingerstick) 221mg/dL (70-99) Laboratory Tests Test 07/13/16 18:06 07/13/16 20:50 07/14/16 08:14 07/14/16 09:50 Glucose (Fingerstick) 135mg/dL (70-99) 188mg/dL (70-99) 167mg/dL (70-99) Sodium Level 137mmol/L (136-145) Potassium Level 4.1mmol/L (3.5-5.1) Chloride Level 102mmol/L (98-107) Carbon Dioxide Level 26mmol/L (21-32) Anion Gap 9 (6-14) Blood Urea Nitrogen 22mg/dL (7-20) Creatinine 1.6mg/dL (0.6-1.0) Estimated GFR (Cockcroft-Gault) 33.1 BUN/Creatinine Ratio 14 (6-20) Glucose Level 304mg/dL (70-99) Calcium Level 9.5mg/dL (8.5-10.1) Total Bilirubin 0.5mg/dL (0.2-1.0) Aspartate Amino Transf (AST/SGOT) 17U/L (15-37) Alanine Aminotransferase (ALT/SGPT) 21U/L (14-59) Alkaline Phosphatase 88U/L (46-116) Total Protein 7.2g/dL (6.4-8.2) Albumin 3.5g/dL (3.4-5.0) Albumin/Globulin Ratio 0.9 (1.0-1.7) Test 07/14/16 11:14 Glucose (Fingerstick) 221mg/dL (70-99) Assessment/Plan Assessment/Plan Impression: Brain metastases Lung metastases Bone metastases Back pain, chronic and no worse, consistent with musculoskeletal etiology RCCa resected 2012 Colon cancer resected 2012 Stage 3 CKD Type 2 DM on insulin ECOG PS 0 Plan: Her distribution of disease is most consistent with metastatic renal cell carcinoma (RCCa). However, she has a history of two prior malignancies within the last 5 years and we are obligated to have a tissue diagnosis prior to treatment. Her only clear cancer related symptom is from her brain metastasis and she has favorable risk disease based on all prognostic scoring systems. RCCa is relatively resistant to radiation therapy (though less clear with SBRT) and there is a large body of data indicating that patients with isolated brain metastases, good performance status and reasonable life expectancy such as Ms Valero benefit from surgical resection. I have strongly recommended this assuming that it is technically feasible as it would be both diagnostic and therapeutic in her case. We would likely consolidate her with SBRT to the resection bed and plan to initiate systemic therapy, likely with a TKI. Start dexamethasone 4mg IV q6hrs. She has extensive edema and will likely improve with steroids. Discussed this all with her and her family today. I reviewed her CT scans and MRI personally. Appreciate consultation. Dr Andre or Dr Hernandez will follow up tomorrow. KOBY JONES MD Jul 14, 2016 12:09
[2016-07-14] MEDS: DEXAMETHASONE SOD PHOS 4 MG/ML VIAL IV SCH ×2 (12:48→18:11)
--- NOTE | 2016-07-14 13:28 | PDOC ---
PROGRESS NOTES Subjective Subjective Patient denies pain. Reports she has had a dry cough for awhile. Objective Objective Vital Signs Date Time Temp Pulse Resp B/P Pulse Ox O2 Delivery O2 Flow Rate FiO2 07/14/16 10:53 98.6 93 16 127/60 93 Room Air 98.6 Intake and Output 07/14/16 07:00 Intake Total 850 ml Output Total 1150 ml Balance -300 ml Intake Oral 850 ml Output Urine Total 1150 ml # Voids 3 Physical Exam Abdomen: Normal bowel sounds, Soft, No tenderness Heart: Regular rate Extremities: No edema General: Alert, Oriented X3, No acute distress Lungs: Clear to auscultation Assessment Assessment Problems Medical Problems: (1) Bone lesion Status: Acute (2) Brain mass Status: Acute (3) Multiple falls Status: Acute (4) Right knee pain Status: Acute (5) Right wrist pain Status: Acute Plan Plan of Care 1. Metastatic cancer - bone scan shows multiple mets in bones and lungs. CT showed lymphadenopathy at site of previous nephrectomy so renal cell cancer is suspected. Now on Decadron. Await Neurosurgery input as to possibility of resection of brain mass. Mood discussed, patient denies need for medication for anxiety or depression at this time. Does have supportive family. 2. DM2 - glucose more elevated after starting Decadron. Increase insulins. 3. HTN - controlled but suspect cough due to BLANCHE. Will change Lisinopril to Losartan and follow her response to this. 4. CKD III - stable on lab. Comment Review of Relevant I have reviewed the following items tiffany (where applicable) has been applied. Labs Laboratory Tests Test 07/12/16 22:50 07/13/16 00:18 07/13/16 07:54 07/13/16 11:43 White Blood Count 9.5x10^3/uL (4.0-11.0) Red Blood Count 4.42x10^6/uL (3.50-5.40) Hemoglobin 12.4g/dL (12.0-15.5) Hematocrit 37.9% (36.0-47.0) Mean Corpuscular Volume 86fL (79-100) Mean Corpuscular Hemoglobin 28pg (25-35) Mean Corpuscular Hemoglobin Concent 33g/dL (31-37) Red Cell Distribution Width 13.7% (11.5-14.5) Platelet Count 200x10^3/uL (140-400) Neutrophils (%) (Auto) 65% (31-73) Lymphocytes (%) (Auto) 26% (24-48) Monocytes (%) (Auto) 6% (0-9) Eosinophils (%) (Auto) 2% (0-3) Basophils (%) (Auto) 1% (0-3) Neutrophils # (Auto) 6.1x10^3uL (1.8-7.7) Lymphocytes # (Auto) 2.5x10^3/uL (1.0-4.8) Monocytes # (Auto) 0.6x10^3/uL (0.0-1.1) Eosinophils # (Auto) 0.2x10^3/uL (0.0-0.7) Basophils # (Auto) 0.1x10^3/uL (0.0-0.2) Sodium Level 142mmol/L (136-145) Potassium Level 4.0mmol/L (3.5-5.1) Chloride Level 103mmol/L (98-107) Carbon Dioxide Level 30mmol/L (21-32) Anion Gap 9 (6-14) Blood Urea Nitrogen 23mg/dL (7-20) Creatinine 1.5mg/dL (0.6-1.0) Estimated GFR (Cockcroft-Gault) 35.7 Glucose Level 151mg/dL (70-99) Calcium Level 9.8mg/dL (8.5-10.1) Glucose (Fingerstick) 144mg/dL (70-99) 178mg/dL (70-99) 209mg/dL (70-99) Test 07/13/16 18:06 07/13/16 20:50 07/14/16 08:14 07/14/16 09:50 Glucose (Fingerstick) 135mg/dL (70-99) 188mg/dL (70-99) 167mg/dL (70-99) Sodium Level 137mmol/L (136-145) Potassium Level 4.1mmol/L (3.5-5.1) Chloride Level 102mmol/L (98-107) Carbon Dioxide Level 26mmol/L (21-32) Anion Gap 9 (6-14) Blood Urea Nitrogen 22mg/dL (7-20) Creatinine 1.6mg/dL (0.6-1.0) Estimated GFR (Cockcroft-Gault) 33.1 BUN/Creatinine Ratio 14 (6-20) Glucose Level 304mg/dL (70-99) Calcium Level 9.5mg/dL (8.5-10.1) Total Bilirubin 0.5mg/dL (0.2-1.0) Aspartate Amino Transf (AST/SGOT) 17U/L (15-37) Alanine Aminotransferase (ALT/SGPT) 21U/L (14-59) Alkaline Phosphatase 88U/L (46-116) Total Protein 7.2g/dL (6.4-8.2) Albumin 3.5g/dL (3.4-5.0) Albumin/Globulin Ratio 0.9 (1.0-1.7) Test 07/14/16 11:14 Glucose (Fingerstick) 221mg/dL (70-99) Laboratory Tests Test 07/13/16 18:06 07/13/16 20:50 07/14/16 08:14 07/14/16 09:50 Glucose (Fingerstick) 135mg/dL (70-99) 188mg/dL (70-99) 167mg/dL (70-99) Sodium Level 137mmol/L (136-145) Potassium Level 4.1mmol/L (3.5-5.1) Chloride Level 102mmol/L (98-107) Carbon Dioxide Level 26mmol/L (21-32) Anion Gap 9 (6-14) Blood Urea Nitrogen 22mg/dL (7-20) Creatinine 1.6mg/dL (0.6-1.0) Estimated GFR (Cockcroft-Gault) 33.1 BUN/Creatinine Ratio 14 (6-20) Glucose Level 304mg/dL (70-99) Calcium Level 9.5mg/dL (8.5-10.1) Total Bilirubin 0.5mg/dL (0.2-1.0) Aspartate Amino Transf (AST/SGOT) 17U/L (15-37) Alanine Aminotransferase (ALT/SGPT) 21U/L (14-59) Alkaline Phosphatase 88U/L (46-116) Total Protein 7.2g/dL (6.4-8.2) Albumin 3.5g/dL (3.4-5.0) Albumin/Globulin Ratio 0.9 (1.0-1.7) Test 07/14/16 11:14 Glucose (Fingerstick) 221mg/dL (70-99) Medications Current Medications Ondansetron HCl (Zofran) 4 mg PRN Q8HRS PRN IV NAUSEA/VOMITING; Start 07/12/16 at 23:45; Stop 07/13/16 at 23:44; Status DC Morphine Sulfate 4 mg PRN Q2HR PRN IV PAIN; Start 07/12/16 at 23:45; Stop 07/13 at 23:44; Status DC Acetaminophen (Tylenol) 650 mg PRN Q4HRS PRN PO FEVER Last administered on 07/13 00:55; Start 07/12/16 at 23:45; Stop 07/13/16 at 23:44; Status DC Amlodipine Besylate (Norvasc) 5 mg DAILY08 PO Last administered on 07/14/16 08 :54; Start 07/13/16 at 10:00 Lisinopril (Prinivil) 20 mg DAILY PO Last administered on 07/14/16 08:53; Start 07/13/16 at 10:00 Insulin Detemir (Levemir) 20 units DAILY SQ ; Start 07/13/16 at 10:00; Stop at 19:09; Status DC Lorazepam (Ativan) 0.25 mg 1X ONCE PO Last administered on 07/13/16 12:38; Start 07/13/16 at 12:30; Stop 07/13/16 at 12:31; Status DC Lorazepam (Ativan) 0.25 mg 1X ONCE IV Last administered on 07/13/16 14:10; Start 07/13/16 at 13:30; Stop 07/13/16 at 13:31; Status DC Iohexol (Omnipaque 240 Mg/ml) 50 ml 1X ONCE PO Last administered on 07/13/16 14:14; Start 07/13/16 at 13:45; Stop 07/13/16 at 13:46; Status DC Info (Do NOT chart on this entry -- for MONITORING) 1 each PRN DAILY PRN MC SEE COMMENTS; Start 07/13/16 at 13:45; Stop 07/15/16 at 13:44 Gadobutrol (Gadavist) 10 mmol 1X ONCE IV Last administered on 07/13/16 15:04 ; Start 07/13/16 at 15:00; Stop 07/13/16 at 17:10; Status DC Insulin Aspart (Novolog) 0-9 UNITS TIDWMEALS SQ Last administered on 07/14/16 08:56; Start 07/13/16 at 17:00 Dextrose 12.5 gm PRN Q15MIN PRN IV SEE COMMENTS; Start 07/13/16 at 16:00 Gabapentin (Neurontin) 100 mg BID PO Last administered on 07/14/16 08:53; Start 07/13/16 at 21:00 Insulin Aspart (Novolog) 10 units TIDAC SQ Last administered on 07/14/16 08:56 ; Start 07/13/16 at 16:30 Insulin Detemir (Levemir) 20 units QHS SQ Last administered on 07/13/16 22:16 ; Start 07/13/16 at 21:00 Lorazepam (Ativan) 0.5 mg 1X ONCE PO ; Start 07/14/16 at 11:15; Stop 07/14/16 at 11:16; Status DC Dexamethasone Sodium Phosphate (Decadron) 4 mg Q6HRS IV Last administered on 12:48; Start 07/14/16 at 12:00 Active Scripts Active Reported [insulin lispro] [gabapentin] PO DAILY Lisinopril 20 Mg Tablet 1 Tab PO DAILY Touleeroy Solostar (Insulin Glargine,Hum.rec.anlog) 300 Unit/1 Ml Insuln.pen 25 Unit SQ DAILY Vitamin D2 (Ergocalciferol (Vitamin D2)) 50,000 Unit Capsule 1 Cap PO WEEKLY Norvasc (Amlodipine Besylate) 5 Mg Tablet 1 Tab PO DAILY08 Vitals/I & O Vital Sign - Last 24 Hours 07/13/16 07/13/16 07/13/16 07/14/16 19:00 20:00 23:00 03:00 Temp 96.3 98.6 98.7 96.3 98.6 98.7 Pulse 99 97 92 Resp 21 20 20 B/P 159/69 149/81 150/87 Pulse Ox 94 94 94 O2 Delivery Room Air Room Air Room Air Room Air 07/14/16 07/14/16 07/14/16 2/26/17 07:00 08:53 08:54 10:53 Temp 97.9 98.6 97.9 98.6 Pulse 101 101 101 93 Resp 18 16 B/P 153/78 153/78 153/78 127/60 Pulse Ox 94 93 O2 Delivery Room Air Room Air Intake and Output 07/13/16 07/13/16 07/14/16 15:00 23:00 07:00 Intake Total 850 ml Output Total 950 ml 200 ml Balance -100 ml -200 ml SUSY TOLENTINO MD Jul 14, 2016 13:27
[2016-07-14 14:56] VITALS: BP 134/72
[2016-07-14] MEDS: LOSARTAN POTASSIUM 50 MG TABLET. PO SCH (15:35)
--- NOTE | 2016-07-14 16:14 | PDOC ---
PROGRESS NOTES Assessment Problems Medical Problems: (1) Bone lesion Status: Acute (2) Brain mass Status: Acute (3) Multiple falls Status: Acute (4) Right knee pain Status: Acute (5) Right wrist pain Status: Acute Problems: Plan This patient is 56-year-old woman who presented to the emergency room with complaint of having falls recently. She is having some pain in her left leg and also has chronic back pains. She reports she was walking through her house and patient fell states with complaints of some pain in her right knee and discomfort. Patient has been having multiple falls at home which are increased recently she is not using any walker at home. Patient denies any history of previous stroke, seizures, any of incontinence of bladder or bowel or loss of consciousness. Metastatic cancer CT showed lymphadenopathy, previous nephrectomy, renal cell carcinoma suspected. Large brain lesion noted on CT scan Will check MRI brain to further evaluate Single enhancing left frontoparietal mass, most likely a metastasis. Bone scan On Decadron Neurosurgery recommendations appreciated Oncologic recommendations appreciated Discussed with patient indicated today. History of diabetes continue treat and monitor Hypertension continue treat and monitor History of chronic kidney disease Continue medical management Subjective no acute events , feeling better. Objective Vital Signs Date Time Temp Pulse Resp B/P Pulse Ox O2 Delivery O2 Flow Rate FiO2 07/14/16 15:35 90 134/72 07/14/16 14:56 97.9 17 95 Room Air 97.9 Intake and Output 07/14/16 07:00 Intake Total 850 ml Output Total 1150 ml Balance -300 ml Intake Oral 850 ml Output Urine Total 1150 ml # Voids 3 PHYSICAL EXAM PHYSICAL EXAMINATION: General appearance is in acute distress. HEENT: Normocephalic and nontraumatic. Eyes, nose, ears, and throat are unremarkable. Neck is supple. No lymphadenopathy. No crepitus. Cardiovascular: S1, S2, regular rate and rhythm. Pulmonary: Clear to auscultation bilaterally. Abdomen: Bowel sounds are positive. Abdomen is soft, nontender, and nondistended. Extremities: No rash, lesions, or edema. No restriction of range of motion NEUROLOGICAL EXAMINATION: Alert Oriented to time, place and person. PERRL. EOMI. CN: no focal findings. Muscle tone: within normal. Muscle strength: 5 on left right sided weakness more on lower than upper ext. DTR: 1-2 Plantar reflex: Flexor response bilaterally Gait: not examined in bed. Sensory exam: no abnormal findings. Review of Relevant I have reviewed the following items tiffany (where applicable) has been applied. Labs Laboratory Tests Test 07/12/16 22:50 07/13/16 00:18 07/13/16 07:54 07/13/16 11:43 White Blood Count 9.5x10^3/uL (4.0-11.0) Red Blood Count 4.42x10^6/uL (3.50-5.40) Hemoglobin 12.4g/dL (12.0-15.5) Hematocrit 37.9% (36.0-47.0) Mean Corpuscular Volume 86fL (79-100) Mean Corpuscular Hemoglobin 28pg (25-35) Mean Corpuscular Hemoglobin Concent 33g/dL (31-37) Red Cell Distribution Width 13.7% (11.5-14.5) Platelet Count 200x10^3/uL (140-400) Neutrophils (%) (Auto) 65% (31-73) Lymphocytes (%) (Auto) 26% (24-48) Monocytes (%) (Auto) 6% (0-9) Eosinophils (%) (Auto) 2% (0-3) Basophils (%) (Auto) 1% (0-3) Neutrophils # (Auto) 6.1x10^3uL (1.8-7.7) Lymphocytes # (Auto) 2.5x10^3/uL (1.0-4.8) Monocytes # (Auto) 0.6x10^3/uL (0.0-1.1) Eosinophils # (Auto) 0.2x10^3/uL (0.0-0.7) Basophils # (Auto) 0.1x10^3/uL (0.0-0.2) Sodium Level 142mmol/L (136-145) Potassium Level 4.0mmol/L (3.5-5.1) Chloride Level 103mmol/L (98-107) Carbon Dioxide Level 30mmol/L (21-32) Anion Gap 9 (6-14) Blood Urea Nitrogen 23mg/dL (7-20) Creatinine 1.5mg/dL (0.6-1.0) Estimated GFR (Cockcroft-Gault) 35.7 Glucose Level 151mg/dL (70-99) Calcium Level 9.8mg/dL (8.5-10.1) Glucose (Fingerstick) 144mg/dL (70-99) 178mg/dL (70-99) 209mg/dL (70-99) Test 07/13/16 18:06 07/13/16 20:50 07/14/16 08:14 07/14/16 09:50 Glucose (Fingerstick) 135mg/dL (70-99) 188mg/dL (70-99) 167mg/dL (70-99) Sodium Level 137mmol/L (136-145) Potassium Level 4.1mmol/L (3.5-5.1) Chloride Level 102mmol/L (98-107) Carbon Dioxide Level 26mmol/L (21-32) Anion Gap 9 (6-14) Blood Urea Nitrogen 22mg/dL (7-20) Creatinine 1.6mg/dL (0.6-1.0) Estimated GFR (Cockcroft-Gault) 33.1 BUN/Creatinine Ratio 14 (6-20) Glucose Level 304mg/dL (70-99) Calcium Level 9.5mg/dL (8.5-10.1) Total Bilirubin 0.5mg/dL (0.2-1.0) Aspartate Amino Transf (AST/SGOT) 17U/L (15-37) Alanine Aminotransferase (ALT/SGPT) 21U/L (14-59) Alkaline Phosphatase 88U/L (46-116) Total Protein 7.2g/dL (6.4-8.2) Albumin 3.5g/dL (3.4-5.0) Albumin/Globulin Ratio 0.9 (1.0-1.7) Test 07/14/16 11:14 Glucose (Fingerstick) 221mg/dL (70-99) Laboratory Tests Test 07/13/16 18:06 07/13/16 20:50 07/14/16 08:14 07/14/16 09:50 Glucose (Fingerstick) 135mg/dL (70-99) 188mg/dL (70-99) 167mg/dL (70-99) Sodium Level 137mmol/L (136-145) Potassium Level 4.1mmol/L (3.5-5.1) Chloride Level 102mmol/L (98-107) Carbon Dioxide Level 26mmol/L (21-32) Anion Gap 9 (6-14) Blood Urea Nitrogen 22mg/dL (7-20) Creatinine 1.6mg/dL (0.6-1.0) Estimated GFR (Cockcroft-Gault) 33.1 BUN/Creatinine Ratio 14 (6-20) Glucose Level 304mg/dL (70-99) Calcium Level 9.5mg/dL (8.5-10.1) Total Bilirubin 0.5mg/dL (0.2-1.0) Aspartate Amino Transf (AST/SGOT) 17U/L (15-37) Alanine Aminotransferase (ALT/SGPT) 21U/L (14-59) Alkaline Phosphatase 88U/L (46-116) Total Protein 7.2g/dL (6.4-8.2) Albumin 3.5g/dL (3.4-5.0) Albumin/Globulin Ratio 0.9 (1.0-1.7) Test 07/14/16 11:14 Glucose (Fingerstick) 221mg/dL (70-99) Medications Current Medications Ondansetron HCl (Zofran) 4 mg PRN Q8HRS PRN IV NAUSEA/VOMITING; Start 07/12/16 at 23:45; Stop 07/13/16 at 23:44; Status DC Morphine Sulfate 4 mg PRN Q2HR PRN IV PAIN; Start 07/12/16 at 23:45; Stop 07/13 at 23:44; Status DC Acetaminophen (Tylenol) 650 mg PRN Q4HRS PRN PO FEVER Last administered on 07/13 00:55; Start 07/12/16 at 23:45; Stop 07/13/16 at 23:44; Status DC Amlodipine Besylate (Norvasc) 5 mg DAILY08 PO Last administered on 07/14/16 08 :54; Start 07/13/16 at 10:00 Lisinopril (Prinivil) 20 mg DAILY PO Last administered on 07/14/16 08:53; Start 07/13/16 at 10:00; Stop 07/14/16 at 13:24; Status DC Insulin Detemir (Levemir) 20 units DAILY SQ ; Start 07/13/16 at 10:00; Stop at 19:09; Status DC Lorazepam (Ativan) 0.25 mg 1X ONCE PO Last administered on 07/13/16 12:38; Start 07/13/16 at 12:30; Stop 07/13/16 at 12:31; Status DC Lorazepam (Ativan) 0.25 mg 1X ONCE IV Last administered on 07/13/16 14:10; Start 07/13/16 at 13:30; Stop 07/13/16 at 13:31; Status DC Iohexol (Omnipaque 240 Mg/ml) 50 ml 1X ONCE PO Last administered on 07/13/16 14:14; Start 07/13/16 at 13:45; Stop 07/13/16 at 13:46; Status DC Info (Do NOT chart on this entry -- for MONITORING) 1 each PRN DAILY PRN MC SEE COMMENTS; Start 07/13/16 at 13:45; Stop 07/15/16 at 13:44 Gadobutrol (Gadavist) 10 mmol 1X ONCE IV Last administered on 07/13/16 15:04 ; Start 07/13/16 at 15:00; Stop 07/13/16 at 17:10; Status DC Insulin Aspart (Novolog) 0-9 UNITS TIDWMEALS SQ Last administered on 07/14/16 12:00; Start 07/13/16 at 17:00 Dextrose 12.5 gm PRN Q15MIN PRN IV SEE COMMENTS; Start 07/13/16 at 16:00 Gabapentin (Neurontin) 100 mg BID PO Last administered on 07/14/16 08:53; Start 07/13/16 at 21:00 Insulin Aspart (Novolog) 10 units TIDAC SQ Last administered on 07/14/16 12:00 ; Start 07/13/16 at 16:30; Stop 07/14/16 at 13:24; Status DC Insulin Detemir (Levemir) 20 units QHS SQ Last administered on 07/13/16 22:16 ; Start 07/13/16 at 21:00; Stop 07/14/16 at 13:24; Status DC Lorazepam (Ativan) 0.5 mg 1X ONCE PO ; Start 07/14/16 at 11:15; Stop 07/14/16 at 11:16; Status DC Dexamethasone Sodium Phosphate (Decadron) 4 mg Q6HRS IV Last administered on 12:48; Start 07/14/16 at 12:00 Insulin Aspart (Novolog) 20 units TIDAC SQ ; Start 07/14/16 at 16:30 Insulin Detemir (Levemir) 40 units QHS SQ ; Start 07/14/16 at 21:00 Losartan Potassium (Cozaar) 50 mg DAILY PO Last administered on 07/14/16 15:35 ; Start 07/14/16 at 14:00 Active Scripts Active Reported [insulin lispro] [gabapentin] PO DAILY Lisinopril 20 Mg Tablet 1 Tab PO DAILY Toujeo Solostar (Insulin Glargine,Hum.rec.anlog) 300 Unit/1 Ml Insuln.pen 25 Unit SQ DAILY Vitamin D2 (Ergocalciferol (Vitamin D2)) 50,000 Unit Capsule 1 Cap PO WEEKLY Norvasc (Amlodipine Besylate) 5 Mg Tablet 1 Tab PO DAILY08 Vitals/I & O Vital Sign - Last 24 Hours 07/13/16 07/13/16 07/13/16 07/14/16 19:00 20:00 23:00 03:00 Temp 96.3 98.6 98.7 96.3 98.6 98.7 Pulse 99 97 92 Resp 21 20 20 B/P 159/69 149/81 150/87 Pulse Ox 94 94 94 O2 Delivery Room Air Room Air Room Air Room Air 07/14/16 07/14/16 07/14/16 07/14/16 07:00 08:53 08:54 10:53 Temp 97.9 98.6 97.9 98.6 Pulse 101 101 101 93 Resp 18 16 B/P 153/78 153/78 153/78 127/60 Pulse Ox 94 93 O2 Delivery Room Air Room Air 07/14/16 07/14/16 14:56 15:35 Temp 97.9 97.9 Pulse 90 90 Resp 17 B/P 134/72 134/72 Pulse Ox 95 O2 Delivery Room Air Intake and Output 07/13/16 07/13/16 07/14/16 15:00 23:00 07:00 Intake Total 850 ml Output Total 950 ml 200 ml Balance -100 ml -200 ml LEILA MAN MD Jul 14, 2016 16:14
--- NOTE | 2016-07-14 16:27 | PDOC ---
PROGRESS NOTES Subjective Subjective denies pain Objective Objective Vital Signs Date Time Temp Pulse Resp B/P Pulse Ox O2 Delivery O2 Flow Rate FiO2 07/14/16 15:35 90 134/72 07/14/16 14:56 97.9 17 95 Room Air 97.9 Intake and Output 07/14/16 07:00 Intake Total 850 ml Output Total 1150 ml Balance -300 ml Intake Oral 850 ml Output Urine Total 1150 ml # Voids 3 Physical Exam General: Alert, Oriented X3 Neuro: Other (strength right leg 2/5, right upper extremity 4/5) Assessment Assessment Problems Medical Problems: (1) Bone lesion Status: Acute (2) Brain mass Status: Acute (3) Multiple falls Status: Acute (4) Right knee pain Status: Acute (5) Right wrist pain Status: Acute Plan Plan of Care plan for resection of left posterior frontal metastatic lesion this week concerned that right lower extremity weakness may be permanent d/w patient, she would strongly like to proceed Comment Review of Relevant I have reviewed the following items tiffany (where applicable) has been applied. Labs Laboratory Tests Test 07/12/16 22:50 07/13/16 00:18 07/13/16 07:54 07/13/16 11:43 White Blood Count 9.5x10^3/uL (4.0-11.0) Red Blood Count 4.42x10^6/uL (3.50-5.40) Hemoglobin 12.4g/dL (12.0-15.5) Hematocrit 37.9% (36.0-47.0) Mean Corpuscular Volume 86fL (79-100) Mean Corpuscular Hemoglobin 28pg (25-35) Mean Corpuscular Hemoglobin Concent 33g/dL (31-37) Red Cell Distribution Width 13.7% (11.5-14.5) Platelet Count 200x10^3/uL (140-400) Neutrophils (%) (Auto) 65% (31-73) Lymphocytes (%) (Auto) 26% (24-48) Monocytes (%) (Auto) 6% (0-9) Eosinophils (%) (Auto) 2% (0-3) Basophils (%) (Auto) 1% (0-3) Neutrophils # (Auto) 6.1x10^3uL (1.8-7.7) Lymphocytes # (Auto) 2.5x10^3/uL (1.0-4.8) Monocytes # (Auto) 0.6x10^3/uL (0.0-1.1) Eosinophils # (Auto) 0.2x10^3/uL (0.0-0.7) Basophils # (Auto) 0.1x10^3/uL (0.0-0.2) Sodium Level 142mmol/L (136-145) Potassium Level 4.0mmol/L (3.5-5.1) Chloride Level 103mmol/L (98-107) Carbon Dioxide Level 30mmol/L (21-32) Anion Gap 9 (6-14) Blood Urea Nitrogen 23mg/dL (7-20) Creatinine 1.5mg/dL (0.6-1.0) Estimated GFR (Cockcroft-Gault) 35.7 Glucose Level 151mg/dL (70-99) Calcium Level 9.8mg/dL (8.5-10.1) Glucose (Fingerstick) 144mg/dL (70-99) 178mg/dL (70-99) 209mg/dL (70-99) Test 07/13/16 18:06 07/13/16 20:50 07/14/16 08:14 07/14/16 09:50 Glucose (Fingerstick) 135mg/dL (70-99) 188mg/dL (70-99) 167mg/dL (70-99) Sodium Level 137mmol/L (136-145) Potassium Level 4.1mmol/L (3.5-5.1) Chloride Level 102mmol/L (98-107) Carbon Dioxide Level 26mmol/L (21-32) Anion Gap 9 (6-14) Blood Urea Nitrogen 22mg/dL (7-20) Creatinine 1.6mg/dL (0.6-1.0) Estimated GFR (Cockcroft-Gault) 33.1 BUN/Creatinine Ratio 14 (6-20) Glucose Level 304mg/dL (70-99) Calcium Level 9.5mg/dL (8.5-10.1) Total Bilirubin 0.5mg/dL (0.2-1.0) Aspartate Amino Transf (AST/SGOT) 17U/L (15-37) Alanine Aminotransferase (ALT/SGPT) 21U/L (14-59) Alkaline Phosphatase 88U/L (46-116) Total Protein 7.2g/dL (6.4-8.2) Albumin 3.5g/dL (3.4-5.0) Albumin/Globulin Ratio 0.9 (1.0-1.7) Test 07/14/16 11:14 Glucose (Fingerstick) 221mg/dL (70-99) Laboratory Tests Test 07/13/16 18:06 07/13/16 20:50 07/14/16 08:14 07/14/16 09:50 Glucose (Fingerstick) 135mg/dL (70-99) 188mg/dL (70-99) 167mg/dL (70-99) Sodium Level 137mmol/L (136-145) Potassium Level 4.1mmol/L (3.5-5.1) Chloride Level 102mmol/L (98-107) Carbon Dioxide Level 26mmol/L (21-32) Anion Gap 9 (6-14) Blood Urea Nitrogen 22mg/dL (7-20) Creatinine 1.6mg/dL (0.6-1.0) Estimated GFR (Cockcroft-Gault) 33.1 BUN/Creatinine Ratio 14 (6-20) Glucose Level 304mg/dL (70-99) Calcium Level 9.5mg/dL (8.5-10.1) Total Bilirubin 0.5mg/dL (0.2-1.0) Aspartate Amino Transf (AST/SGOT) 17U/L (15-37) Alanine Aminotransferase (ALT/SGPT) 21U/L (14-59) Alkaline Phosphatase 88U/L (46-116) Total Protein 7.2g/dL (6.4-8.2) Albumin 3.5g/dL (3.4-5.0) Albumin/Globulin Ratio 0.9 (1.0-1.7) Test 07/14/16 11:14 Glucose (Fingerstick) 221mg/dL (70-99) Medications Current Medications Ondansetron HCl (Zofran) 4 mg PRN Q8HRS PRN IV NAUSEA/VOMITING; Start 07/12/16 at 23:45; Stop 07/13/16 at 23:44; Status DC Morphine Sulfate 4 mg PRN Q2HR PRN IV PAIN; Start 07/12/16 at 23:45; Stop 07/13 at 23:44; Status DC Acetaminophen (Tylenol) 650 mg PRN Q4HRS PRN PO FEVER Last administered on 07/13 00:55; Start 07/12/16 at 23:45; Stop 07/13/16 at 23:44; Status DC Amlodipine Besylate (Norvasc) 5 mg DAILY08 PO Last administered on 07/14/16 08 :54; Start 07/13/16 at 10:00 Lisinopril (Prinivil) 20 mg DAILY PO Last administered on 07/14/16 08:53; Start 07/13/16 at 10:00; Stop 07/14/16 at 13:24; Status DC Insulin Detemir (Levemir) 20 units DAILY SQ ; Start 07/13/16 at 10:00; Stop at 19:09; Status DC Lorazepam (Ativan) 0.25 mg 1X ONCE PO Last administered on 07/13/16 12:38; Start 07/13/16 at 12:30; Stop 07/13/16 at 12:31; Status DC Lorazepam (Ativan) 0.25 mg 1X ONCE IV Last administered on 07/13/16 14:10; Start 07/13/16 at 13:30; Stop 07/13/16 at 13:31; Status DC Iohexol (Omnipaque 240 Mg/ml) 50 ml 1X ONCE PO Last administered on 07/13/16 14:14; Start 07/13/16 at 13:45; Stop 07/13/16 at 13:46; Status DC Info (Do NOT chart on this entry -- for MONITORING) 1 each PRN DAILY PRN MC SEE COMMENTS; Start 07/13/16 at 13:45; Stop 07/15/16 at 13:44 Gadobutrol (Gadavist) 10 mmol 1X ONCE IV Last administered on 07/13/16 15:04 ; Start 07/13/16 at 15:00; Stop 07/13/16 at 17:10; Status DC Insulin Aspart (Novolog) 0-9 UNITS TIDWMEALS SQ Last administered on 07/14/16 12:00; Start 07/13/16 at 17:00 Dextrose 12.5 gm PRN Q15MIN PRN IV SEE COMMENTS; Start 07/13/16 at 16:00 Gabapentin (Neurontin) 100 mg BID PO Last administered on 07/14/16 08:53; Start 07/13/16 at 21:00 Insulin Aspart (Novolog) 10 units TIDAC SQ Last administered on 07/14/16 12:00 ; Start 07/13/16 at 16:30; Stop 07/14/16 at 13:24; Status DC Insulin Detemir (Levemir) 20 units QHS SQ Last administered on 07/13/16 22:16 ; Start 07/13/16 at 21:00; Stop 07/14/16 at 13:24; Status DC Lorazepam (Ativan) 0.5 mg 1X ONCE PO ; Start 07/14/16 at 11:15; Stop 07/14/16 at 11:16; Status DC Dexamethasone Sodium Phosphate (Decadron) 4 mg Q6HRS IV Last administered on 12:48; Start 07/14/16 at 12:00 Insulin Aspart (Novolog) 20 units TIDAC SQ ; Start 07/14/16 at 16:30 Insulin Detemir (Levemir) 40 units QHS SQ ; Start 07/14/16 at 21:00 Losartan Potassium (Cozaar) 50 mg DAILY PO Last administered on 07/14/16 15:35 ; Start 07/14/16 at 14:00 Active Scripts Active Reported [insulin lispro] [gabapentin] PO DAILY Lisinopril 20 Mg Tablet 1 Tab PO DAILY Ida Bartonostar (Insulin Glargine,Hum.rec.anlog) 300 Unit/1 Ml Insuln.pen 25 Unit SQ DAILY Vitamin D2 (Ergocalciferol (Vitamin D2)) 50,000 Unit Capsule 1 Cap PO WEEKLY Norvasc (Amlodipine Besylate) 5 Mg Tablet 1 Tab PO DAILY08 Vitals/I & O Vital Sign - Last 24 Hours 07/13/16 07/13/16 07/13/16 07/14/16 19:00 20:00 23:00 03:00 Temp 96.3 98.6 98.7 96.3 98.6 98.7 Pulse 99 97 92 Resp 21 20 20 B/P 159/69 149/81 150/87 Pulse Ox 94 94 94 O2 Delivery Room Air Room Air Room Air Room Air 07/14/16 07/14/16 07/14/16 07/14/16 07:00 08:53 08:54 10:53 Temp 97.9 98.6 97.9 98.6 Pulse 101 101 101 93 Resp 18 16 B/P 153/78 153/78 153/78 127/60 Pulse Ox 94 93 O2 Delivery Room Air Room Air 07/14/16 07/14/16 14:56 15:35 Temp 97.9 97.9 Pulse 90 90 Resp 17 B/P 134/72 134/72 Pulse Ox 95 O2 Delivery Room Air Intake and Output 07/13/16 07/13/16 07/14/16 15:00 23:00 07:00 Intake Total 850 ml Output Total 950 ml 200 ml Balance -100 ml -200 ml ANCELMO ZAVALA MD Jul 14, 2016 16:27
[2016-07-14 19:00] VITALS: BP 150/82
[2016-07-14] MEDS ORDERED: INSULIN DETEMIR 300 UNITS/3 ML INSULN.PEN. SQ SCH (21:00)
[2016-07-14 23:00] VITALS: BP 138/69
[2016-07-15] VITALS (7 sets, daily range): BP systolic 124–171; BP diastolic 69–92
[2016-07-15] MEDS: DEXAMETHASONE SOD PHOS 4 MG/ML VIAL IV SCH ×5 (00:14→23:55)
[2016-07-15] MEDS ORDERED: CEFAZOLIN 2GM PREMIX 50 ML IV PRN (06:00)
[2016-07-15] MEDS: AMLODIPINE BESYLATE 5 MG TABLET PO SCH (08:47)
[2016-07-15] MEDS: LOSARTAN POTASSIUM 50 MG TABLET. PO SCH (08:47)
[2016-07-15] MEDS: GABAPENTIN 100 MG CAPSULE. PO SCH ×2 (08:47→20:10)
[2016-07-15] MEDS: INSULIN ASPART 300 UNITS/3 ML INSULN.PEN SQ SCH ×6 (08:51→17:48)
--- NOTE | 2016-07-15 09:14 | PDOC ---
PROGRESS NOTES Subjective Subjective Patient reports right hand and right leg seem a little stronger. Still has pain in right knee. Objective Objective Vital Signs Date Time Temp Pulse Resp B/P Pulse Ox O2 Delivery O2 Flow Rate FiO2 07/15/16 08:47 86 153/77 07/15/16 07:27 97.9 18 94 Room Air 97.9 Intake and Output 07/15/16 07:00 Intake Total 700 ml Output Total 1200 ml Balance -500 ml Intake Oral 700 ml Output Urine Total 1200 ml Physical Exam Abdomen: Normal bowel sounds, Soft, No tenderness Heart: Regular rate Extremities: No edema General: Alert, Oriented X3, No acute distress Lungs: Clear to auscultation Assessment Assessment Problems Medical Problems: (1) Bone lesion Status: Acute (2) Brain mass Status: Acute (3) Multiple falls Status: Acute (4) Right knee pain Status: Acute (5) Right wrist pain Status: Acute Plan Plan of Care 1. Metastatic cancer - Dr Decker plans resection of brain mass later this week. Patient feels the Decadron is helping with her weakness. Still having pain at site of large lytic lesion in proximal tibia, will consult Dr Deng to see if XRT would be appropriate tx for this. 2. DM2 - glucose continues elevated, increasing insulins. 3. HTN - controlled, cough seems less to patient off the Lisinopril. Comment Review of Relevant I have reviewed the following items tiffany (where applicable) has been applied. Labs Laboratory Tests Test 07/13/16 11:43 07/13/16 18:06 07/13/16 20:50 07/14/16 08:14 Glucose (Fingerstick) 209mg/dL (70-99) 135mg/dL (70-99) 188mg/dL (70-99) 167mg/dL (70-99) Test 07/14/16 09:50 07/14/16 11:14 07/14/16 17:13 07/14/16 21:03 Sodium Level 137mmol/L (136-145) Potassium Level 4.1mmol/L (3.5-5.1) Chloride Level 102mmol/L (98-107) Carbon Dioxide Level 26mmol/L (21-32) Anion Gap 9 (6-14) Blood Urea Nitrogen 22mg/dL (7-20) Creatinine 1.6mg/dL (0.6-1.0) Estimated GFR (Cockcroft-Gault) 33.1 BUN/Creatinine Ratio 14 (6-20) Glucose Level 304mg/dL (70-99) Calcium Level 9.5mg/dL (8.5-10.1) Total Bilirubin 0.5mg/dL (0.2-1.0) Aspartate Amino Transf (AST/SGOT) 17U/L (15-37) Alanine Aminotransferase (ALT/SGPT) 21U/L (14-59) Alkaline Phosphatase 88U/L (46-116) Total Protein 7.2g/dL (6.4-8.2) Albumin 3.5g/dL (3.4-5.0) Albumin/Globulin Ratio 0.9 (1.0-1.7) Glucose (Fingerstick) 221mg/dL (70-99) 221mg/dL (70-99) 364mg/dL (70-99) Test 07/15/16 08:35 Glucose (Fingerstick) 320mg/dL (70-99) Laboratory Tests Test 07/14/16 09:50 07/14/16 11:14 07/14/16 17:13 07/14/16 21:03 Sodium Level 137mmol/L (136-145) Potassium Level 4.1mmol/L (3.5-5.1) Chloride Level 102mmol/L (98-107) Carbon Dioxide Level 26mmol/L (21-32) Anion Gap 9 (6-14) Blood Urea Nitrogen 22mg/dL (7-20) Creatinine 1.6mg/dL (0.6-1.0) Estimated GFR (Cockcroft-Gault) 33.1 BUN/Creatinine Ratio 14 (6-20) Glucose Level 304mg/dL (70-99) Calcium Level 9.5mg/dL (8.5-10.1) Total Bilirubin 0.5mg/dL (0.2-1.0) Aspartate Amino Transf (AST/SGOT) 17U/L (15-37) Alanine Aminotransferase (ALT/SGPT) 21U/L (14-59) Alkaline Phosphatase 88U/L (46-116) Total Protein 7.2g/dL (6.4-8.2) Albumin 3.5g/dL (3.4-5.0) Albumin/Globulin Ratio 0.9 (1.0-1.7) Glucose (Fingerstick) 221mg/dL (70-99) 221mg/dL (70-99) 364mg/dL (70-99) Test 07/15/16 08:35 Glucose (Fingerstick) 320mg/dL (70-99) Medications Current Medications Ondansetron HCl (Zofran) 4 mg PRN Q8HRS PRN IV NAUSEA/VOMITING; Start 07/12/16 at 23:45; Stop 07/13/16 at 23:44; Status DC Morphine Sulfate 4 mg PRN Q2HR PRN IV PAIN; Start 07/12/16 at 23:45; Stop 07/13 at 23:44; Status DC Acetaminophen (Tylenol) 650 mg PRN Q4HRS PRN PO FEVER Last administered on 07/13 00:55; Start 07/12/16 at 23:45; Stop 07/13/16 at 23:44; Status DC Amlodipine Besylate (Norvasc) 5 mg DAILY08 PO Last administered on 07/15/16 08 :47; Start 07/13/16 at 10:00 Lisinopril (Prinivil) 20 mg DAILY PO Last administered on 07/14/16 08:53; Start 07/13/16 at 10:00; Stop 07/14/16 at 13:24; Status DC Insulin Detemir (Levemir) 20 units DAILY SQ ; Start 07/13/16 at 10:00; Stop at 19:09; Status DC Lorazepam (Ativan) 0.25 mg 1X ONCE PO Last administered on 07/13/16 12:38; Start 07/13/16 at 12:30; Stop 07/13/16 at 12:31; Status DC Lorazepam (Ativan) 0.25 mg 1X ONCE IV Last administered on 07/13/16 14:10; Start 07/13/16 at 13:30; Stop 07/13/16 at 13:31; Status DC Iohexol (Omnipaque 240 Mg/ml) 50 ml 1X ONCE PO Last administered on 07/13/16 14:14; Start 07/13/16 at 13:45; Stop 07/13/16 at 13:46; Status DC Info (Do NOT chart on this entry -- for MONITORING) 1 each PRN DAILY PRN MC SEE COMMENTS; Start 07/13/16 at 13:45; Stop 07/15/16 at 13:44 Gadobutrol (Gadavist) 10 mmol 1X ONCE IV Last administered on 07/13/16 15:04 ; Start 07/13/16 at 15:00; Stop 07/13/16 at 17:10; Status DC Insulin Aspart (Novolog) 0-9 UNITS TIDWMEALS SQ Last administered on 07/15/16 08:52; Start 07/13/16 at 17:00 Dextrose 12.5 gm PRN Q15MIN PRN IV SEE COMMENTS; Start 07/13/16 at 16:00 Gabapentin (Neurontin) 100 mg BID PO Last administered on 07/15/16 08:47; Start 07/13/16 at 21:00 Insulin Aspart (Novolog) 10 units TIDAC SQ Last administered on 07/14/16 12:00 ; Start 07/13/16 at 16:30; Stop 07/14/16 at 13:24; Status DC Insulin Detemir (Levemir) 20 units QHS SQ Last administered on 07/13/16 22:16 ; Start 07/13/16 at 21:00; Stop 07/14/16 at 13:24; Status DC Lorazepam (Ativan) 0.5 mg 1X ONCE PO ; Start 07/14/16 at 11:15; Stop 07/14/16 at 11:16; Status DC Dexamethasone Sodium Phosphate (Decadron) 4 mg Q6HRS IV Last administered on 05:36; Start 07/14/16 at 12:00 Insulin Aspart (Novolog) 20 units TIDAC SQ Last administered on 07/15/16 08:51 ; Start 07/14/16 at 16:30 Insulin Detemir (Levemir) 40 units QHS SQ Last administered on 07/14/16 21:49 ; Start 07/14/16 at 21:00 Losartan Potassium (Cozaar) 50 mg DAILY PO Last administered on 07/15/16 08:47 ; Start 07/14/16 at 14:00 Active Scripts Active Reported [insulin lispro] [gabapentin] PO DAILY Lisinopril 20 Mg Tablet 1 Tab PO DAILY Ida Conrad (Insulin Glargine,Hum.rec.anlog) 300 Unit/1 Ml Insuln.pen 25 Unit SQ DAILY Vitamin D2 (Ergocalciferol (Vitamin D2)) 50,000 Unit Capsule 1 Cap PO WEEKLY Norvasc (Amlodipine Besylate) 5 Mg Tablet 1 Tab PO DAILY08 Vitals/I & O Vital Sign - Last 24 Hours 07/14/16 07/14/16 07/14/16 07/14/16 10:53 14:56 15:35 19:00 Temp 98.6 97.9 98.1 98.6 97.9 98.1 Pulse 93 90 90 100 Resp 16 17 20 B/P 127/60 134/72 134/72 150/82 Pulse Ox 93 95 93 O2 Delivery Room Air Room Air Room Air 07/14/16 07/14/16 07/15/16 07/15/16 20:00 23:00 03:00 07:27 Temp 98.8 98.1 97.9 98.8 98.1 97.9 Pulse 92 90 86 Resp 19 18 18 B/P 138/69 171/72 153/77 Pulse Ox 93 94 94 O2 Delivery Room Air Room Air Room Air Room Air 07/15/16 07/15/16 08:47 08:47 Pulse 86 86 B/P 153/77 153/77 Intake and Output 07/14/16 07/14/16 07/15/16 15:00 23:00 07:00 Intake Total 700 ml Output Total 900 ml 300 ml Balance -200 ml -300 ml SUSY TOLENTINO MD Jul 15, 2016 09:14
--- NOTE | 2016-07-15 09:56 | PDOC ---
PROGRESS NOTES Subjective Subjective no pain noted improvement in right sided strength up in chair Objective Objective Vital Signs Date Time Temp Pulse Resp B/P Pulse Ox O2 Delivery O2 Flow Rate FiO2 07/15/16 08:47 86 153/77 07/15/16 07:27 97.9 18 94 Room Air 97.9 Intake and Output 07/15/16 07:00 Intake Total 700 ml Output Total 1200 ml Balance -500 ml Intake Oral 700 ml Output Urine Total 1200 ml Physical Exam General: Alert, Oriented X3, Cooperative, No acute distress Neuro: Other (4+/5 right arm , right hand 3/5, right lower extremity 2/5, right foot improved plantar and dorsi flexion) Assessment Assessment Problems Medical Problems: (1) Bone lesion Status: Acute (2) Brain mass Status: Acute (3) Multiple falls Status: Acute (4) Right knee pain Status: Acute (5) Right wrist pain Status: Acute Plan Plan of Care improving on steroids plan for craniotomy tomorrow with Dr. Tucker/ Hunter reviewed surgery and risks all questions answered Comment Review of Relevant I have reviewed the following items tiffany (where applicable) has been applied. Labs Laboratory Tests Test 07/13/16 11:43 07/13/16 18:06 07/13/16 20:50 07/14/16 08:14 Glucose (Fingerstick) 209mg/dL (70-99) 135mg/dL (70-99) 188mg/dL (70-99) 167mg/dL (70-99) Test 07/14/16 09:50 07/14/16 11:14 07/14/16 17:13 07/14/16 21:03 Sodium Level 137mmol/L (136-145) Potassium Level 4.1mmol/L (3.5-5.1) Chloride Level 102mmol/L (98-107) Carbon Dioxide Level 26mmol/L (21-32) Anion Gap 9 (6-14) Blood Urea Nitrogen 22mg/dL (7-20) Creatinine 1.6mg/dL (0.6-1.0) Estimated GFR (Cockcroft-Gault) 33.1 BUN/Creatinine Ratio 14 (6-20) Glucose Level 304mg/dL (70-99) Calcium Level 9.5mg/dL (8.5-10.1) Total Bilirubin 0.5mg/dL (0.2-1.0) Aspartate Amino Transf (AST/SGOT) 17U/L (15-37) Alanine Aminotransferase (ALT/SGPT) 21U/L (14-59) Alkaline Phosphatase 88U/L (46-116) Total Protein 7.2g/dL (6.4-8.2) Albumin 3.5g/dL (3.4-5.0) Albumin/Globulin Ratio 0.9 (1.0-1.7) Glucose (Fingerstick) 221mg/dL (70-99) 221mg/dL (70-99) 364mg/dL (70-99) Test 07/15/16 08:35 Glucose (Fingerstick) 320mg/dL (70-99) Laboratory Tests Test 07/14/16 11:14 07/14/16 17:13 07/14/16 21:03 07/15/16 08:35 Glucose (Fingerstick) 221mg/dL (70-99) 221mg/dL (70-99) 364mg/dL (70-99) 320mg/dL (70-99) Medications Current Medications Ondansetron HCl (Zofran) 4 mg PRN Q8HRS PRN IV NAUSEA/VOMITING; Start 07/12/16 at 23:45; Stop 07/13/16 at 23:44; Status DC Morphine Sulfate 4 mg PRN Q2HR PRN IV PAIN; Start 07/12/16 at 23:45; Stop 07/13 at 23:44; Status DC Acetaminophen (Tylenol) 650 mg PRN Q4HRS PRN PO FEVER Last administered on 07/13 00:55; Start 07/12/16 at 23:45; Stop 07/13/16 at 23:44; Status DC Amlodipine Besylate (Norvasc) 5 mg DAILY08 PO Last administered on 07/15/16 08 :47; Start 07/13/16 at 10:00 Lisinopril (Prinivil) 20 mg DAILY PO Last administered on 07/14/16 08:53; Start 07/13/16 at 10:00; Stop 07/14/16 at 13:24; Status DC Insulin Detemir (Levemir) 20 units DAILY SQ ; Start 07/13/16 at 10:00; Stop at 19:09; Status DC Lorazepam (Ativan) 0.25 mg 1X ONCE PO Last administered on 07/13/16 12:38; Start 07/13/16 at 12:30; Stop 07/13/16 at 12:31; Status DC Lorazepam (Ativan) 0.25 mg 1X ONCE IV Last administered on 07/13/16 14:10; Start 07/13/16 at 13:30; Stop 07/13/16 at 13:31; Status DC Iohexol (Omnipaque 240 Mg/ml) 50 ml 1X ONCE PO Last administered on 07/13/16 14:14; Start 07/13/16 at 13:45; Stop 07/13/16 at 13:46; Status DC Info (Do NOT chart on this entry -- for MONITORING) 1 each PRN DAILY PRN MC SEE COMMENTS; Start 07/13/16 at 13:45; Stop 07/15/16 at 13:44 Gadobutrol (Gadavist) 10 mmol 1X ONCE IV Last administered on 07/13/16 15:04 ; Start 07/13/16 at 15:00; Stop 07/13/16 at 17:10; Status DC Insulin Aspart (Novolog) 0-9 UNITS TIDWMEALS SQ Last administered on 07/15/16 08:52; Start 07/13/16 at 17:00 Dextrose 12.5 gm PRN Q15MIN PRN IV SEE COMMENTS; Start 07/13/16 at 16:00 Gabapentin (Neurontin) 100 mg BID PO Last administered on 07/15/16 08:47; Start 07/13/16 at 21:00 Insulin Aspart (Novolog) 10 units TIDAC SQ Last administered on 07/14/16 12:00 ; Start 07/13/16 at 16:30; Stop 07/14/16 at 13:24; Status DC Insulin Detemir (Levemir) 20 units QHS SQ Last administered on 07/13/16 22:16 ; Start 07/13/16 at 21:00; Stop 07/14/16 at 13:24; Status DC Lorazepam (Ativan) 0.5 mg 1X ONCE PO ; Start 07/14/16 at 11:15; Stop 07/14/16 at 11:16; Status DC Dexamethasone Sodium Phosphate (Decadron) 4 mg Q6HRS IV Last administered on 05:36; Start 07/14/16 at 12:00 Insulin Aspart (Novolog) 20 units TIDAC SQ Last administered on 07/15/16 08:51 ; Start 07/14/16 at 16:30; Stop 07/15/16 at 09:12; Status DC Insulin Detemir (Levemir) 40 units QHS SQ Last administered on 07/14/16 21:49 ; Start 07/14/16 at 21:00; Stop 07/15/16 at 09:12; Status DC Losartan Potassium (Cozaar) 50 mg DAILY PO Last administered on 07/15/16 08:47 ; Start 07/14/16 at 14:00 Insulin Aspart (Novolog) 30 units TIDAC SQ ; Start 07/15/16 at 12:00 Insulin Detemir (Levemir) 60 units QHS SQ ; Start 07/15/16 at 21:00 Active Scripts Active Reported [insulin lispro] [gabapentin] PO DAILY Lisinopril 20 Mg Tablet 1 Tab PO DAILY Ida Conrad (Insulin Glargine,Hum.rec.anlog) 300 Unit/1 Ml Insuln.pen 25 Unit SQ DAILY Vitamin D2 (Ergocalciferol (Vitamin D2)) 50,000 Unit Capsule 1 Cap PO WEEKLY Norvasc (Amlodipine Besylate) 5 Mg Tablet 1 Tab PO DAILY08 Vitals/I & O Vital Sign - Last 24 Hours 07/14/16 07/14/16 07/14/16 07/14/16 10:53 14:56 15:35 19:00 Temp 98.6 97.9 98.1 98.6 97.9 98.1 Pulse 93 90 90 100 Resp 16 17 20 B/P 127/60 134/72 134/72 150/82 Pulse Ox 93 95 93 O2 Delivery Room Air Room Air Room Air 07/14/16 07/14/16 07/15/16 07/15/16 20:00 23:00 03:00 07:27 Temp 98.8 98.1 97.9 98.8 98.1 97.9 Pulse 92 90 86 Resp 19 18 18 B/P 138/69 171/72 153/77 Pulse Ox 93 94 94 O2 Delivery Room Air Room Air Room Air Room Air 07/15/16 07/15/16 08:47 08:47 Pulse 86 86 B/P 153/77 153/77 Intake and Output 07/14/16 07/14/16 07/15/16 15:00 23:00 07:00 Intake Total 700 ml Output Total 900 ml 300 ml Balance -200 ml -300 ml ANCELMO ZAVALA MD Jul 15, 2016 09:56
[2016-07-15] MEDS ORDERED: CEFAZOLIN SODIUM IV SCH (10:00)
[2016-07-15] MEDS ORDERED: NORMAL SALINE IV SCH (10:00)
--- NOTE | 2016-07-15 10:11 | PDOC ---
PROGRESS NOTES Assessment Problems Medical Problems: (1) Bone lesion Status: Acute (2) Brain mass Status: Acute (3) Multiple falls Status: Acute (4) Right knee pain Status: Acute (5) Right wrist pain Status: Acute Brain Mets Plan Agree with neurosurgery plans for craniotomy on 07/17 Continue Decadron Holding on anticonvulsants Subjective Feels better Objective Vital Signs Date Time Temp Pulse Resp B/P Pulse Ox O2 Delivery O2 Flow Rate FiO2 07/15/16 08:47 86 153/77 07/15/16 07:27 97.9 18 94 Room Air 97.9 Intake and Output 07/15/16 07:00 Intake Total 700 ml Output Total 1200 ml Balance -500 ml Intake Oral 700 ml Output Urine Total 1200 ml PHYSICAL EXAM Alert. Oriented to time, place and person. PERRL. EOMI. CN: no focal findings. Muscle tone: normal. Muscle strength: 5-/5 on right, 5/5 on left DTR: 2+ Plantar reflex: flexor Gait: not examined in bed. Sensory exam: no abnormal findings. No cerebellar signs elicited. Review of Relevant I have reviewed the following items tiffany (where applicable) has been applied. Labs Laboratory Tests Test 07/13/16 11:43 07/13/16 18:06 07/13/16 20:50 07/14/16 08:14 Glucose (Fingerstick) 209mg/dL (70-99) 135mg/dL (70-99) 188mg/dL (70-99) 167mg/dL (70-99) Test 07/14/16 09:50 07/14/16 11:14 07/14/16 17:13 07/14/16 21:03 Sodium Level 137mmol/L (136-145) Potassium Level 4.1mmol/L (3.5-5.1) Chloride Level 102mmol/L (98-107) Carbon Dioxide Level 26mmol/L (21-32) Anion Gap 9 (6-14) Blood Urea Nitrogen 22mg/dL (7-20) Creatinine 1.6mg/dL (0.6-1.0) Estimated GFR (Cockcroft-Gault) 33.1 BUN/Creatinine Ratio 14 (6-20) Glucose Level 304mg/dL (70-99) Calcium Level 9.5mg/dL (8.5-10.1) Total Bilirubin 0.5mg/dL (0.2-1.0) Aspartate Amino Transf (AST/SGOT) 17U/L (15-37) Alanine Aminotransferase (ALT/SGPT) 21U/L (14-59) Alkaline Phosphatase 88U/L (46-116) Total Protein 7.2g/dL (6.4-8.2) Albumin 3.5g/dL (3.4-5.0) Albumin/Globulin Ratio 0.9 (1.0-1.7) Glucose (Fingerstick) 221mg/dL (70-99) 221mg/dL (70-99) 364mg/dL (70-99) Test 07/15/16 08:35 Glucose (Fingerstick) 320mg/dL (70-99) Laboratory Tests Test 07/14/16 11:14 07/14/16 17:13 07/14/16 21:03 07/15/16 08:35 Glucose (Fingerstick) 221mg/dL (70-99) 221mg/dL (70-99) 364mg/dL (70-99) 320mg/dL (70-99) Medications Current Medications Ondansetron HCl (Zofran) 4 mg PRN Q8HRS PRN IV NAUSEA/VOMITING; Start 07/12/16 at 23:45; Stop 07/13/16 at 23:44; Status DC Morphine Sulfate 4 mg PRN Q2HR PRN IV PAIN; Start 07/12/16 at 23:45; Stop 07/13 at 23:44; Status DC Acetaminophen (Tylenol) 650 mg PRN Q4HRS PRN PO FEVER Last administered on 07/13 00:55; Start 07/12/16 at 23:45; Stop 07/13/16 at 23:44; Status DC Amlodipine Besylate (Norvasc) 5 mg DAILY08 PO Last administered on 07/15/16 08 :47; Start 07/13/16 at 10:00 Lisinopril (Prinivil) 20 mg DAILY PO Last administered on 07/14/16 08:53; Start 07/13/16 at 10:00; Stop 07/14/16 at 13:24; Status DC Insulin Detemir (Levemir) 20 units DAILY SQ ; Start 07/13/16 at 10:00; Stop at 19:09; Status DC Lorazepam (Ativan) 0.25 mg 1X ONCE PO Last administered on 07/13/16 12:38; Start 07/13/16 at 12:30; Stop 07/13/16 at 12:31; Status DC Lorazepam (Ativan) 0.25 mg 1X ONCE IV Last administered on 07/13/16 14:10; Start 07/13/16 at 13:30; Stop 07/13/16 at 13:31; Status DC Iohexol (Omnipaque 240 Mg/ml) 50 ml 1X ONCE PO Last administered on 07/13/16 14:14; Start 07/13/16 at 13:45; Stop 07/13/16 at 13:46; Status DC Info (Do NOT chart on this entry -- for MONITORING) 1 each PRN DAILY PRN MC SEE COMMENTS; Start 07/13/16 at 13:45; Stop 07/15/16 at 13:44 Gadobutrol (Gadavist) 10 mmol 1X ONCE IV Last administered on 07/13/16 15:04 ; Start 07/13/16 at 15:00; Stop 07/13/16 at 17:10; Status DC Insulin Aspart (Novolog) 0-9 UNITS TIDWMEALS SQ Last administered on 07/15/16 08:52; Start 07/13/16 at 17:00 Dextrose 12.5 gm PRN Q15MIN PRN IV SEE COMMENTS; Start 07/13/16 at 16:00 Gabapentin (Neurontin) 100 mg BID PO Last administered on 07/15/16 08:47; Start 07/13/16 at 21:00 Insulin Aspart (Novolog) 10 units TIDAC SQ Last administered on 07/14/16 12:00 ; Start 07/13/16 at 16:30; Stop 07/14/16 at 13:24; Status DC Insulin Detemir (Levemir) 20 units QHS SQ Last administered on 07/13/16 22:16 ; Start 07/13/16 at 21:00; Stop 07/14/16 at 13:24; Status DC Lorazepam (Ativan) 0.5 mg 1X ONCE PO ; Start 07/14/16 at 11:15; Stop 07/14/16 at 11:16; Status DC Dexamethasone Sodium Phosphate (Decadron) 4 mg Q6HRS IV Last administered on 05:36; Start 07/14/16 at 12:00 Insulin Aspart (Novolog) 20 units TIDAC SQ Last administered on 07/15/16 08:51 ; Start 07/14/16 at 16:30; Stop 07/15/16 at 09:12; Status DC Insulin Detemir (Levemir) 40 units QHS SQ Last administered on 07/14/16 21:49 ; Start 07/14/16 at 21:00; Stop 07/15/16 at 09:12; Status DC Losartan Potassium (Cozaar) 50 mg DAILY PO Last administered on 07/15/16 08:47 ; Start 07/14/16 at 14:00 Insulin Aspart (Novolog) 30 units TIDAC SQ ; Start 07/15/16 at 12:00 Insulin Detemir 60 units 60 units QHS SQ ; Start 07/15/16 at 21:00 Cefazolin Sodium 2 gm/Sodium Chloride 100 ml @ 200 mls/hr 1X PREOP IV ; Start 07/15/16 at 10:00; Status UNV Cefazolin Sodium/ Dextrose (Ancef 2gm Premix) 50 ml @ 100 mls/hr 1X PREOP PRN IV PRIOR TO PROCEDURE; Start 07/15/16 at 06:00; Stop 07/16/16 at 05:59 Active Scripts Active Reported [insulin lispro] [gabapentin] PO DAILY Lisinopril 20 Mg Tablet 1 Tab PO DAILY Toujeo Solostar (Insulin Glargine,Hum.rec.anlog) 300 Unit/1 Ml Insuln.pen 25 Unit SQ DAILY Vitamin D2 (Ergocalciferol (Vitamin D2)) 50,000 Unit Capsule 1 Cap PO WEEKLY Norvasc (Amlodipine Besylate) 5 Mg Tablet 1 Tab PO DAILY08 Vitals/I & O Vital Sign - Last 24 Hours 07/14/16 07/14/16 07/14/16 07/14/16 10:53 14:56 15:35 19:00 Temp 98.6 97.9 98.1 98.6 97.9 98.1 Pulse 93 90 90 100 Resp 16 17 20 B/P 127/60 134/72 134/72 150/82 Pulse Ox 93 95 93 O2 Delivery Room Air Room Air Room Air 07/14/16 07/14/16 07/15/16 07/15/16 20:00 23:00 03:00 07:27 Temp 98.8 98.1 97.9 98.8 98.1 97.9 Pulse 92 90 86 Resp 19 18 18 B/P 138/69 171/72 153/77 Pulse Ox 93 94 94 O2 Delivery Room Air Room Air Room Air Room Air 07/15/16 07/15/16 08:47 08:47 Pulse 86 86 B/P 153/77 153/77 Intake and Output 07/14/16 07/14/16 07/15/16 15:00 23:00 07:00 Intake Total 700 ml Output Total 900 ml 300 ml Balance -200 ml -300 ml SOM BUI MD Jul 15, 2016 10:11
--- NOTE | 2016-07-15 11:51 | PDOC ---
Subjective: Subjective: Onc f/u- H/o colon and RCC s/p resection 2012, new brain mass Pt with improved Right sided weakness after starting steroids. Headaches chronic x mths and unchanged. No vision changes, speech problems. No SOB, chest pain, abd pain. Objective: Vital Signs: Vital Signs Date Time Temp Pulse Resp B/P Pulse Ox O2 Delivery O2 Flow Rate FiO2 07/15/16 11:06 96.8 97 18 124/92 96 Room Air 96.8 Physical Exam: Abdomen: No tenderness Heart: Regular rate Extremities: No edema General: Alert, Oriented X3, Cooperative, No acute distress Lungs: Clear to auscultation, Normal air movement Musculoskeletal: Other (Improved strength in right UE and LE) Neuro: Cranial nerves 3-12 NL Psych/Mental Status: Mental status NL, Mood NL Labs/Imaging: CBC, CMP WNL CT head- Left frontal mass with midline shift, swelling MRI brain- Confirmed CT C/A/P- Bilateral pulm mets, 1.7 cm left subcarinal mass, left periiaortic mass @ resection site from previous left nephrectomy Small R breast mass -- Mammogram 01/01 neg Bone scan- diffuse mets Requesting path reports from [facility] for colon cancer and RCC surgeries; did not have outpt f/u after that Assessment/Plan A/P: 1. Left frontal mass, bilateral pulm mets, diffuse bone mets- Planning for resxn of [employer] mass tomorrow. Will f/u path for outpt tx. 2. H/o colon cancer and left RCC s/p surgeries at [facility] in 2012. No outpt f/u afterwards. Have requested path reports. 3. Right sided weakness. Improved with steroids. Will continue to follow. GABRIEL BRAMBILA DO Jul 15, 2016 11:51
[2016-07-15 12:14] LABS: INR 1.2 (0.8-1.1); PROTHROMBIN TIME PATIENT 14.6 SEC (11.7-14.0)
[2016-07-15] MEDS ORDERED: INSULIN DETEMIR 300 UNITS/3 ML INSULN.PEN. SQ SCH (21:00)
[2016-07-16] VITALS (14 sets, daily range): BP systolic 124–177; BP diastolic 50–81
[2016-07-16] MEDS: DEXAMETHASONE SOD PHOS 4 MG/ML VIAL IV SCH ×3 (05:21→19:29)
[2016-07-16] MEDS ORDERED: BACITRACIN 50,000 UNIT in IV NORMAL SALINE 1000ML BAG 1,000 ML IRR ONE (06:00)
--- NOTE | 2016-07-16 06:46 | CONS ---
DATE OF CONSULTATION: 07/15/2016 REFERRING PHYSICIAN: Mara Patino M.D. DIAGNOSIS: A 56-year-old woman with a prior history of both kidney and colon carcinoma resected in December 2012. She now has a significant 1.8 cm solitary left frontoparietal mass causing right-sided hemiparesis with symptoms now improved with dexamethasone. She is scheduled for craniotomy and resection of this on 07/16/2016. In addition, she has a symptomatic lytic lesion in her proximal right tibia. We were asked to see regarding the role of palliative radiation therapy in her care. In the summer of 2012, she was evaluated by Dr. Patino and Dr. Laly Hilton here for anemia. She was treated with aggressive iron therapy. She also underwent colonoscopy in October 2012, which revealed a cecal mass, biopsy of which revealed adenocarcinoma. She underwent staging CT scan of the abdomen and pelvis at that time, which revealed a mass in the left kidney, worrisome for primary renal malignancy. She then underwent left nephrectomy and right ileocolectomy at [facility] with Dr. Luis Tabor and Dr. Young Hopper. She did well postoperatively. At that time, she was found to have stage I ([id number]) grade 2 renal cell carcinoma, primary measured 5.5 x 4.2 cm. No perinephric lymph nodes were sampled. She also was found to have stage IIA (T3N0M0) poorly differentiated adenocarcinoma of the right colon extending in the pericolonic soft tissues. Pathology revealed a 5.1 x 3.1 cm primary extending in the pericolic fat with lymphovascular invasion, 0 of 20 lymph nodes were metastatically involved. Following surgery, she chose to pursue no oncology follow-up. She now notes progressive right-sided generalized weakness involving arm and leg over the last month. During this time, she fell twice without significant injury. She had no significant headaches, nausea or vomiting or seizures. She had no weight loss, no nausea or vomiting. She did note some fatigue. She was evaluated in the Emergency Room. CT scan of the head from 07/12/2016 revealed large area of vasogenic edema in the left frontal lobe with a 5-mm left to right shift, worrisome for underlying malignancy. CT scan of the C-spine was unremarkable for any evidence for metastatic disease. Followup MRI scan on 07/13/2016, revealed a 19-mm enhancing mass, multilobulated in appearance in the deep left frontoparietal white matter, parasagittal location with extensive vasogenic edema, effacement of the lateral ventricle and modest midline shift compatible with likely underlying metastatic disease. Followup CT scan of the chest, abdomen and pelvis revealed small bilateral pulmonary nodules, minimally numbering 4 on the right, 7 on the left compatible with underlying metastatic disease, minimal mediastinal adenopathy, left periaortic lymph node in the left renal resection site compatible with metastatic adenopathy and small lucencies in vertebral bodies L2 and L3, left femoral neck, left iliac bone, all compatible with osseous metastatic disease. Bone scan revealed multiple areas of uptake most significantly in the proximal right tibia, L1, faintly within the mid shaft to the left femur and bilateral SI joint regions, all compatible with metastatic disease. Plain x-ray of the right proximal tibia revealed a lucency compatible with lytic metastasis with modest disruption of cortical bone laterally. No pathologic fracture seen. Findings were compatible with metastatic disease. PAST MEDICAL HISTORY: Remarkable for diabetes mellitus, hypertension. PAST SURGICAL HISTORY: Remarkable for partial colectomy, left mastectomy, bilateral tubal ligation. ALLERGIES: No known allergies. MEDICATIONS: Prior to admission include amlodipine, lisinopril, Toujeu atorvastatin, Humalog insulin, gabapentin. FAMILY HISTORY: No significant malignancy noted. SOCIAL HISTORY: Separate from her and her second marriage, 2 sons, 2 daughters, 3 live here, one is in the [place] in [place], [place]. Denies cigarette or alcohol use. 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 Enjoys reading and puzzles. REVIEW OF SYSTEMS: Was remarkable for right proximal calf and knee pain of uncertain duration. Her right hemiparesis and coordination have improved with dexamethasone. PHYSICAL EXAMINATION: GENERAL: Revealed a pleasant, articulate woman in no acute distress. HEENT: Unremarkable. She had no scleral icterus. LYMPH NODES: She had no palpable cervical or supraclavicular adenopathy. ABDOMEN: Revealed obesity, no hepatomegaly, mass or tenderness. EXTREMITIES: Reveal no clubbing, cyanosis or edema. NEUROLOGIC: Revealed diffuse weakness on the right side both upper and lower extremity. Coordination was impaired by rapid alternating movement on the right side. Symmetric and intact [id number] exam. Gait was not tested. Standing was somewhat unstable and required assistance. Cranial nerves 2-12 were grossly intact, She was alert, cooperative with spontaneous appropriate. LABORATORY STUDIES: On admission, hemoglobin 12.4, white count 9500, platelet count 200,000. Chemistry panel revealed normal electrolytes, creatinine 1.6, glucose 304. Normal liver function tests. Calcium 9.5. ASSESSMENT AND PLAN: In summary, my impression is that of widely metastatic malignancy likely most compatible with recurrent renal cell carcinoma. She has a solitary symptomatic brain metastasis with significant tumor edema. At this time, I concur with surgical resection to give her rapid improvement of her neurologic symptoms. This would also provide confirmation of histology of her metastasis. Depending on the surgical outcome seen pathologically, we would consider postoperative radiation to her resection bed to give her durable control of her intracranial metastasis. In addition, we certainly would consider palliative radiation therapy to proximal tibial metastasis, both to improve pain and preserve bone integrity. I reviewed this in detail with the patient including reviewing her imaging studies. She is now scheduled for craniotomy and resection on 07/16/2016 and we will endeavor to see her postoperatively as well. Thank you for allowing us to participate in her evaluation. LYUDMILA RODRIGUEZ MD DR: LUCY/nikkie JOB#: [id number] / [id number] GABRIEL Zhao FRANK MD RAJA, VINAY MD MTDD
[2016-07-16] MEDS ORDERED: MORPHINE SULFATE 2 MG/ML DISP.SYRIN. IV PRN (07:00)
[2016-07-16] MEDS ORDERED: PROCHLORPERAZINE 10 MG/2 ML VIAL. IV PRN (07:00)
[2016-07-16] MEDS ORDERED: ONDANSETRON PF 4 MG/2 ML VIAL. IV PRN ×2 (07:00→12:15)
[2016-07-16] MEDS ORDERED: FENTANYL PF 100 MCG/2 ML VIAL. IV PRN ×3 (07:00→12:15)
[2016-07-16] MEDS ORDERED: HYDROMORPHONE 2 MG/ML VIAL. IV PRN (07:00)
[2016-07-16] MEDS ORDERED: IV RINGERS,LACTATED 1000ML 1,000 ML IV SCH (07:00)
[2016-07-16] MEDS ORDERED: LIDOCAINE 1% 1 ML SYRINGE. ID PRN (07:00)
[2016-07-16] MEDS ORDERED: MANNITOL 25% 12.5 G/50 ML VIAL FOR OR. ONE ×2 (07:14→08:34)
[2016-07-16] MEDS ORDERED: SURGICEL HEMOSTAT 4X8 EACH. ONE (07:14)
[2016-07-16] MEDS ORDERED: BUPIVAC MPF-EPI 0.5%-1:200000 30 ML VIAL. ONE (07:15)
[2016-07-16] MEDS ORDERED: GELATIN SPONGE SIZE 100. ONE (07:15)
[2016-07-16] MEDS ORDERED: THROMBIN 20,000 UNIT SPRAY.SYRN KIT TP ONE ×2 (07:15→10:34)
[2016-07-16] MEDS: INSULIN ASPART 300 UNITS/3 ML INSULN.PEN SQ SCH ×6 (07:30→17:25)
[2016-07-16] MEDS: GABAPENTIN 100 MG CAPSULE. PO SCH ×2 (07:39→20:58)
[2016-07-16] MEDS: LOSARTAN POTASSIUM 50 MG TABLET. PO SCH (07:39)
[2016-07-16] MEDS: AMLODIPINE BESYLATE 5 MG TABLET PO SCH (07:40)
[2016-07-16] MEDS ORDERED: GLYCOPYRROLATE 1 MG/5 ML VIAL. ONE ×2 (08:21→10:31)
[2016-07-16] MEDS ORDERED: REMIFENTANIL 2 MG VIAL. IV ONE (08:21)
[2016-07-16] MEDS ORDERED: LIDOCAINE 2% 100 MG/5 ML DISP.SYRIN. ONE ×2 (08:22→11:53)
[2016-07-16] MEDS ORDERED: ROCURONIUM 50 MG/5 ML VIAL. ONE (08:22)
[2016-07-16] MEDS ORDERED: ONDANSETRON PF 4 MG/2 ML VIAL. ONE (08:22)
[2016-07-16] MEDS ORDERED: PHENYLEPHRINE 10 MG/ML VIAL. ONE (08:22)
[2016-07-16] MEDS ORDERED: DESFLURANE > 120 MINUTES IH ONE (08:22)
[2016-07-16] MEDS ORDERED: PROPOFOL 20 ML IV ONE (08:22)
[2016-07-16] MEDS ORDERED: DEXAMETHASONE SOD PHOS 20 MG/5 ML VIAL. ONE (08:22)
[2016-07-16] MEDS ORDERED: GADOBUTROL 10 MMOL/10 ML VIAL IV ONE (08:30)
[2016-07-16] MEDS ORDERED: PROPOFOL 100 ML IV ONE (08:33)
--- NOTE | 2016-07-16 08:35 | PDOC ---
PROGRESS NOTES Subjective Subjective (Patient not seen, at surgery). Objective Objective Vital Signs Date Time Temp Pulse Resp B/P Pulse Ox O2 Delivery O2 Flow Rate FiO2 07/16/16 07:55 97.4 83 16 167/76 94 Room Air 97.4 Intake and Output 07/16/16 07:00 Intake Total 420 ml Output Total 1070 ml Balance -650 ml Intake Oral 420 ml Output Urine Total 1070 ml Assessment Assessment Problems Medical Problems: (1) Bone lesion Status: Acute (2) Brain mass Status: Acute (3) Multiple falls Status: Acute (4) Right knee pain Status: Acute (5) Right wrist pain Status: Acute Plan Plan of Care 1. Metastatic cancer - in surgery presently for resection of brain tumor. Await pathology results from that. Anticipate XRT to symptomatic bone met in right tibia post-operatively. Further tx as per Oncology and Radiation Oncology recommendations. 2. DM2 - blood sugars still quite elevated from the Decadron. Increase Levemir and follow. 3. HTN - BP somewhat labile, continue her usual meds and follow. Comment Review of Relevant I have reviewed the following items tiffany (where applicable) has been applied. Labs Laboratory Tests Test 07/14/16 09:50 07/14/16 11:14 07/14/16 17:13 07/14/16 21:03 Sodium Level 137mmol/L (136-145) Potassium Level 4.1mmol/L (3.5-5.1) Chloride Level 102mmol/L (98-107) Carbon Dioxide Level 26mmol/L (21-32) Anion Gap 9 (6-14) Blood Urea Nitrogen 22mg/dL (7-20) Creatinine 1.6mg/dL (0.6-1.0) Estimated GFR (Cockcroft-Gault) 33.1 BUN/Creatinine Ratio 14 (6-20) Glucose Level 304mg/dL (70-99) Calcium Level 9.5mg/dL (8.5-10.1) Total Bilirubin 0.5mg/dL (0.2-1.0) Aspartate Amino Transf (AST/SGOT) 17U/L (15-37) Alanine Aminotransferase (ALT/SGPT) 21U/L (14-59) Alkaline Phosphatase 88U/L (46-116) Total Protein 7.2g/dL (6.4-8.2) Albumin 3.5g/dL (3.4-5.0) Albumin/Globulin Ratio 0.9 (1.0-1.7) Glucose (Fingerstick) 221mg/dL (70-99) 221mg/dL (70-99) 364mg/dL (70-99) Test 07/15/16 08:35 07/15/16 11:34 07/15/16 11:40 07/15/16 16:33 Glucose (Fingerstick) 320mg/dL (70-99) 317mg/dL (70-99) 218mg/dL (70-99) Prothrombin Time 14.6SEC (11.7-14.0) Prothromb Time International Ratio 1.2 (0.8-1.1) Test 07/15/16 21:24 07/16/16 07:35 Glucose (Fingerstick) 254mg/dL (70-99) 288mg/dL (70-99) Laboratory Tests Test 07/15/16 08:35 07/15/16 11:34 07/15/16 11:40 07/15/16 16:33 Glucose (Fingerstick) 320mg/dL (70-99) 317mg/dL (70-99) 218mg/dL (70-99) Prothrombin Time 14.6SEC (11.7-14.0) Prothromb Time International Ratio 1.2 (0.8-1.1) Test 07/15/16 21:24 07/16/16 07:35 Glucose (Fingerstick) 254mg/dL (70-99) 288mg/dL (70-99) Medications Current Medications Ondansetron HCl (Zofran) 4 mg PRN Q8HRS PRN IV NAUSEA/VOMITING; Start 07/12/16 at 23:45; Stop 07/13/16 at 23:44; Status DC Morphine Sulfate 4 mg PRN Q2HR PRN IV PAIN; Start 07/12/16 at 23:45; Stop 07/13 at 23:44; Status DC Acetaminophen (Tylenol) 650 mg PRN Q4HRS PRN PO FEVER Last administered on 07/13t 00:55; Start 07/12/16 at 23:45; Stop 07/13/16 at 23:44; Status DC Amlodipine Besylate (Norvasc) 5 mg DAILY08 PO Last administered on 07/16/16 07 :40; Start 07/13/16 at 10:00 Lisinopril (Prinivil) 20 mg DAILY PO Last administered on 07/14/16 08:53; Start 07/13/16 at 10:00; Stop 07/14/16 at 13:24; Status DC Insulin Detemir (Levemir) 20 units DAILY SQ ; Start 07/13/16 at 10:00; Stop at 19:09; Status DC Lorazepam (Ativan) 0.25 mg 1X ONCE PO Last administered on 07/13/16 12:38; Start 07/13/16 at 12:30; Stop 07/13/16 at 12:31; Status DC Lorazepam (Ativan) 0.25 mg 1X ONCE IV Last administered on 07/13/16 14:10; Start 07/13/16 at 13:30; Stop 07/13/16 at 13:31; Status DC Iohexol (Omnipaque 240 Mg/ml) 50 ml 1X ONCE PO Last administered on 07/13/16 14:14; Start 07/13/16 at 13:45; Stop 07/13/16 at 13:46; Status DC Info (Do NOT chart on this entry -- for MONITORING) 1 each PRN DAILY PRN MC SEE COMMENTS; Start 07/13/16 at 13:45; Stop 07/15/16 at 13:44; Status DC Gadobutrol (Gadavist) 10 mmol 1X ONCE IV Last administered on 07/13/16 15:04 ; Start 07/13/16 at 15:00; Stop 07/13/16 at 17:10; Status DC Insulin Aspart (Novolog) 0-9 UNITS TIDWMEALS SQ Last administered on 07/15/16 17:48; Start 07/13/16 at 17:00 Dextrose 12.5 gm PRN Q15MIN PRN IV SEE COMMENTS; Start 07/13/16 at 16:00 Gabapentin (Neurontin) 100 mg BID PO Last administered on 07/16/16 07:39; Start 07/13/16 at 21:00 Insulin Aspart (Novolog) 10 units TIDAC SQ Last administered on 07/14/16 12:00 ; Start 07/13/16 at 16:30; Stop 07/14/16 at 13:24; Status DC Insulin Detemir (Levemir) 20 units QHS SQ Last administered on 07/13/16 22:16 ; Start 07/13/16 at 21:00; Stop 07/14/16 at 13:24; Status DC Lorazepam (Ativan) 0.5 mg 1X ONCE PO ; Start 07/14/16 at 11:15; Stop 07/14/16 at 11:16; Status DC Dexamethasone Sodium Phosphate (Decadron) 4 mg Q6HRS IV Last administered on 05:21; Start 07/14/16 at 12:00 Insulin Aspart (Novolog) 20 units TIDAC SQ Last administered on 07/15/16 08:51 ; Start 07/14/16 at 16:30; Stop 07/15/16 at 09:12; Status DC Insulin Detemir (Levemir) 40 units QHS SQ Last administered on 07/14/16 21:49 ; Start 07/14/16 at 21:00; Stop 07/15/16 at 09:12; Status DC Losartan Potassium (Cozaar) 50 mg DAILY PO Last administered on 07/16/16 07:39 ; Start 07/14/16 at 14:00 Insulin Aspart (Novolog) 30 units TIDAC SQ Last administered on 07/15/16 17:48 ; Start 07/15/16 at 12:00 Insulin Detemir 60 units 60 units QHS SQ Last administered on 07/15/16 21:44; Start 07/15/16 at 21:00 Cefazolin Sodium 2 gm/Sodium Chloride 100 ml @ 200 mls/hr 1X PREOP IV ; Start 07/15/16 at 10:00; Status UNV Cefazolin Sodium/ Dextrose 50 ml @ 100 mls/hr 1X PREOP PRN IV PRIOR TO PROCEDURE; Start 07/15/16 at 06:00; Stop 07/16/16 at 05:59; Status DC Bacitracin/Sodium Chloride (Iv Sodium Chloride 0.9% 1000ml Bag) 1,000 ml @ 1, 000 mls/hr 1X PERIOP ONCE IRR ; Start 07/16/16 at 06:00; Stop 07/16/16 at 06:59 ; Status DC Ondansetron HCl (Zofran) 4 mg PRN Q6HRS PRN IV Nausea; Start 07/16/16 at 07:00 ; Stop 07/17/16 at 06:59 Fentanyl Citrate (Fentanyl 2ml Vial) 25 mcg PRN Q5MIN PRN IV MILD PAIN; Start 07/16/16 at 07:00; Stop 07/17/16 at 06:59 Fentanyl Citrate (Fentanyl 2ml Vial) 50 mcg PRN Q5MIN PRN IV MODERATE PAIN; Start 07/16/16 at 07:00; Stop 07/17/16 at 06:59 Morphine Sulfate 1 mg 1 mg PRN Q10MIN PRN IV SEVERE PAIN; Start 07/16/16 at 07: 00; Stop 07/17/16 at 06:59 Lactated Ringer's (Iv Lactated Ringers) 1,000 ml @ 30 mls/hr Q24H IV ; Start at 07:00; Stop 07/16/16 at 18:59 Lidocaine HCl 2 ml 1X PRN PRN ID IV START; Start 07/16/16 at 07:00; Stop at 06:59 Hydromorphone HCl (Dilaudid) 0.5 mg PRN Q10MIN PRN IV SEVERE PAIN, Second choice; Start 07/16/16 at 07:00; Stop 07/17/16 at 06:59 Prochlorperazine Edisylate (Compazine) 5 mg PACU PRN PRN IV NAUSEA; Start 07/16 at 07:00; Stop 07/17/16 at 06:59 Cellulose 1 each STK-MED ONCE .ROUTE ; Start 07/16/16 at 07:14; Stop 07/16/16 at 07:15; Status DC Mannitol (Mannitol) 12.5 g STK-MED ONCE .ROUTE ; Start 07/16/16 at 07:14; Stop 07/16/16 at 07:15; Status DC Gelatin (Gelfoam Size 100) 1 each STK-MED ONCE .ROUTE ; Start 07/16/16 at 07:15 ; Stop 07/16/16 at 07:16; Status DC Thrombin 20,000 unit STK-MED ONCE TP ; Start 07/16/16 at 07:15; Stop 07/16/16 at 07:16; Status DC Bupivacaine HCl/ Epinephrine Bitart (Sensorcain-Mpf Epi 0.5%-1:[id number]) 30 ml STK -MED ONCE .ROUTE ; Start 07/16/16 at 07:15; Stop 07/16/16 at 07:16; Status DC Remifentanil HCl (Ultiva) 2 mg STK-MED ONCE IV ; Start 07/16/16 at 08:21; Stop 07/16/16 at 08:22; Status DC Glycopyrrolate (Robinul) 1 mg STK-MED ONCE .ROUTE ; Start 07/16/16 at 08:21; Stop 07/16/16 at 08:22; Status DC Desflurane (Suprane) 90 ml STK-MED ONCE IH ; Start 07/16/16 at 08:22; Stop 07/16 at 08:23; Status DC Lidocaine HCl 100 mg STK-MED ONCE .ROUTE ; Start 07/16/16 at 08:22; Stop at 08:23; Status DC Dexamethasone Sodium Phosphate 20 mg 20 mg STK-MED ONCE .ROUTE ; Start 07/16/16 at 08:22; Stop 07/16/16 at 08:23; Status DC Propofol (Diprivan) 20 ml @ As Directed STK-MED ONCE IV ; Start 07/16/16 at 08: 22; Stop 07/16/16 at 08:23; Status DC Ondansetron HCl (Zofran) 4 mg STK-MED ONCE .ROUTE ; Start 07/16/16 at 08:22; Stop 07/16/16 at 08:23; Status DC Phenylephrine HCl (Thom-Synephrine Inj) 10 mg STK-MED ONCE .ROUTE ; Start at 08:22; Stop 07/16/16 at 08:23; Status DC Rocuronium Goldsmith (Zemuron) 50 mg STK-MED ONCE .ROUTE ; Start 07/16/16 at 08:22 ; Stop 07/16/16 at 08:23; Status DC Gadobutrol (Gadavist) 9 mmol 1X ONCE IV ; Start 07/16/16 at 08:30; Stop at 08:31 Active Scripts Active Reported [insulin lispro] [gabapentin] PO DAILY Lisinopril 20 Mg Tablet 1 Tab PO DAILY Ida Conrad (Insulin Glargine,Hum.rec.anlog) 300 Unit/1 Ml Insuln.pen 25 Unit SQ DAILY Vitamin D2 (Ergocalciferol (Vitamin D2)) 50,000 Unit Capsule 1 Cap PO WEEKLY Norvasc (Amlodipine Besylate) 5 Mg Tablet 1 Tab PO DAILY08 Vitals/I & O Vital Sign - Last 24 Hours 07/15/16 07/15/16 07/15/16 07/15/16 08:47 08:47 11:06 14:58 Temp 96.8 97.5 96.8 97.5 Pulse 86 86 97 94 Resp 18 B/P 153/77 153/77 124/92 134/85 Pulse Ox 96 97 O2 Delivery Room Air Room Air 07/15/16 07/15/16 07/15/16 07/16/16 19:37 20:15 23:53 03:41 Temp 97.6 97.9 97.7 97.6 97.9 97.7 Pulse 88 83 78 Resp 18 B/P 150/69 159/72 177/81 Pulse Ox 95 93 93 O2 Delivery Room Air Room Air Room Air Room Air 07/16/16 07/16/16 07/16/16 07/16/16 07:00 07:39 07:40 07:55 Temp 98.0 97.4 98.0 97.4 Pulse 91 78 78 83 Resp 16 B/P 154/67 177/81 177/81 167/76 Pulse Ox 94 94 O2 Delivery Room Air Room Air Intake and Output 07/15/16 07/15/16 07/16/16 15:00 23:00 07:00 Intake Total 420 ml Output Total 620 ml 450 ml Balance -200 ml -450 ml SUSY TOLENTINO MD Jul 16, 2016 08:35
[2016-07-16] MEDS ORDERED: FENTANYL PF 100 MCG/2 ML VIAL. ONE (08:36)
[2016-07-16] MEDS ORDERED: GELATIN MUCOSAL POWDER. ONE (08:57)
--- NOTE | 2016-07-16 09:32 | RAD ---
PROCEDURE MRI brain lab with contrast. HISTORY Craniotomy, brain mass COMPARISON 07/13/2016 TECHNIQUE Post contrast MR imaging was performed as per the brain lab protocol. Contrast: 9 cc Gadavist FINDINGS There is again enhancing parenchymal mass of the left parasagittal frontal lobe up to 1.5 cm transverse by 1.3 cm AP, adjacent severe vasogenic edema. There is also a small enhancing mass left occipital lobe up to 0.4 centimeters axial image 60. IMPRESSION 1. There is again enhancing parenchymal mass of the left parasagittal frontal lobe with adjacent severe adjacent vasogenic edema, small mass of the left occipital lobe. Electronically signed by: Jf Ravi MD (Jul 16, 2016 09:30:42)
[2016-07-16] MEDS ORDERED: EPHEDRINE PF IN SALINE 50 MG/5 ML DISP.SYRIN. IV ONE ×2 (09:37→10:30)
[2016-07-16] MEDS ORDERED: INSULIN REGULAR 100 UNIT/ML 10ML VIAL. ONE (11:19)
--- NOTE | 2016-07-16 11:55 | PDOC ---
BRIEF OPERATIVE NOTE Date: Jul 16, 2016 Pre-Op Diagnosis brain mass Post-Op Diagnosis same Procedure Performed stereotactic left frontal craniotomy for resection of brain mass Surgeon Garrett Anesthesia Type: General Blood Loss 50mL Specimens Obtained frozen and permanent Findings intraparenchymal brain mass Complications none apparent ZBIGNIEW RUBY MD Jul 16, 2016 11:55
[2016-07-16] MEDS ORDERED: DIPHENHYDRAMINE 50 MG/ML VIAL IV PRN (12:15)
[2016-07-16] MEDS ORDERED: NICARDIPINE HCL 50 MG in IV NORMAL SALINE 250ML 250 ML IV PRN (12:15)
[2016-07-16] MEDS ORDERED: MAG HYDROX/ALUMINUM HYD/SIMETH 30 ML ORAL.SUSP PO PRN (12:15)
[2016-07-16] MEDS ORDERED: CALCIUM CARBONATE 500 MG TAB.CHEW PO PRN (12:15)
[2016-07-16] MEDS ORDERED: MAGNESIUM HYDROXIDE 2,400 MG/30 ML ORAL.SUSP. PO PRN (12:15)
[2016-07-16] MEDS ORDERED: DEXTROSE 50% 25 GM / 50ML DISP.SYRIN. IV PRN (12:15)
[2016-07-16] MEDS ORDERED: DIPHENHYDRAMINE HCL 25 MG CAPSULE PO PRN (12:15)
[2016-07-16] MEDS ORDERED: OXYCODONE/APAP 5/325 TABLET. PO PRN (12:15)
[2016-07-16] MEDS ORDERED: 0.9 % SODIUM CHLORIDE 10 ML DISP.SYRIN. IV PRN (12:15)
[2016-07-16] MEDS: FENTANYL PF 100 MCG/2 ML VIAL. IV PRN ×2 (12:44→13:08)
[2016-07-16] MEDS: FAMOTIDINE 20 MG TABLET. PO SCH ×2 (15:22→20:58)
[2016-07-16] MEDS: SENNOSIDES/DOCUSATE 8.6/50MG TABLET. PO SCH ×2 (15:22→20:58)
[2016-07-16] MEDS: DOCUSATE SODIUM 100 MG CAPSULE PO SCH ×2 (15:22→20:58)
--- NOTE | 2016-07-16 16:04 | OP ---
DATE OF SURGERY: 07/16/2016 PREOPERATIVE DIAGNOSES: Intraparenchymal brain mass. POSTOPERATIVE DIAGNOSES: Intraparenchymal brain mass, presumptive metastasis. SURGEON: ZBIGNIEW RUBY MD. BIOFUELS PRODUCTION ASSOCIATE: None. PROCEDURE: Stereotactic left frontal craniotomy for resection of brain mass. ANESTHESIA: General. COMPLICATIONS: None intra-procedurally. INDICATIONS FOR THE PROCEDURE: The patient is a 56-year-old female who reports that over the last month she has had some problems with clumsiness and weakness with regard to the right upper and right lower extremities. She also reports some pain in the right leg as well. She has had some falling. She also reports that she has had some headaches. She was admitted via the Emergency Room because of repeated falls, and the imaging obtained showed an intraparenchymal mass with significant adjacent edema. Of note, she has a history of colon cancer as well as renal cancer for which she underwent surgery in 2012, and the diagnosis of this isolated intracranial mass is unverified. Risks and benefits of resection were discussed with the patient including (but not limited to) significant risks of worsening of the right-sided weakness, which could be temporary but may also result in permanent loss of strength in the right upper and right lower extremity secondary to location of this lesion. After careful consideration of all these things and after extensive discussion, the patient elected to proceed with the aforementioned surgery. Please refer to the patient's chart for additional detail. DESCRIPTION OF PROCEDURE: After informed consent was obtained, the patient was brought into the operating room, was placed under general anesthesia, and was placed in the supine position. A [place] heading pinner was placed to a pressure of 70 pounds. The head in the Crews was affixed to the bed in a neutral position. Stereotaxis was utilized and registered with good localization to a previously obtained stereotactic brain MRI. An incision was planned just left of the midline in a vertical fashion, centered over the region of tumor and anterior to the tumor with a planned trajectory anterior to the precentral gyrus near the falx. The region was prepped and draped in the usual sterile fashion. The incision was made with a 10-blade scalpel. Monopolar electrocautery was utilized to dissect the underlying soft tissues of the bone. Zaire clips were applied to the incised soft tissue. Self-retainers were instituted. The midline as well as the tumor location and trajectory for approach to the tumor were again verified with stereotaxis. Three ildefonso holes were instituted around the periphery of the planned approach, and a craniotome was utilized to fashion the craniotomy around this region just slightly lateral to the midline to preserve the superior sagittal sinus. The dura was quite adherent to the bone and was significantly friable. Once the bone removed, it was set aside in bacitracin for later reimplantation. Dural leaflets were quite friable after the craniotomy, but additional exposure was obtained with Metzenbaum scissors through parts of the dura. The underlying brain was identified and verified with stereotaxis. The trajectory to the mass relative to the surface brain was again verified with stereotaxis. A couple of centimeters anterior to the region of the coronal suture, a small corticectomy was made near the medial aspect of the exposed parenchyma. Microdissection was carried down along the medial aspect of the frontal region extending slightly posteriorly along the falx to approach the region of mass. The corticectomy was carried around the region of mass which was readily identified upon approaching it. A margin was dissected around this mass lesion with micro-instruments, irrigated bipolar electrocautery, and cottonoids. Sections of the mass were subsequently taken for frozen section. Frozen section was consistent with metastatic disease, which pathology reported may possibly be more related to the prior renal neoplasm, but final pathology will need to be completed to confirm this. The mass was completely removed with a pituitary rongeur after careful dissection around the periphery. This was sent for permanent section. The operative cavity was inspected for any additional abnormal tissue. These grossly clear-appearing margins were verified with the stereotactic wand. Once complete. Pristine hemostasis was achieved with some use of bipolar electrocautery, Gelfoam, and gentle irrigation with warmed isotonic saline. The adjacent parenchyma was lined with Surgicel. The dura which was noted to be previously friable was tacked together with 4-0 Nurolon. As a water-tight seal could not be completely obtained by this method, a piece of Duragen was instituted as an onlay duraplasty with DuraSeal for top of this. A piece of dry Gelfoam was instituted to top this duraplasty. Once this was complete, the bone was reapproximated with plates and 4 mm screws with good anatomical contour. The region was then generously irrigated with antibiotic irrigation prior to final closure. The galea was reapproximated with 2-0 Vicryl in interrupted inverted fashion, and the skin was reapproximated with wai. The wound was dressed with Xeroform, Telfa, 4x4s, and Tegaderm, and a head wrap with Kerlix was applied. Once the drapes were taken down and the [place] heading pinner was removed, the pin sites were inspected for hemorrhage. No hemorrhage was observed. At the end of procedure, all needle and sponge counts were correct x 2. The patient was extubated in the operating room and taken to the ICU in stable condition. There were no intra-procedural complications apparent. ZBIGNIEW RUBY MD DR: Ashish JOB#: [id number] / [id number] AUREA
[2016-07-16] MEDS ORDERED: INSULIN DETEMIR 300 UNITS/3 ML INSULN.PEN. SQ SCH (21:00)
[2016-07-17] VITALS (16 sets, daily range): BP systolic 102–178; BP diastolic 46–79
[2016-07-17] MEDS: DEXAMETHASONE SOD PHOS 4 MG/ML VIAL IV SCH ×4 (00:13→18:47)
[2016-07-17] MEDS: hydrALAZINE 20 MG/ML VIAL. IVP PRN (05:07)
[2016-07-17 05:08] LABS: BASO % 0 % (0-3); EOS % 0 % (0-3); HEMATOCRIT 25.1 % (36.0-47.0); HEMOGLOBIN 8.2 g/dL (12.0-15.5); LYMPH # 0.4 x10^3/uL (1.0-4.8); LYMPH % 5 % (24-48); MEAN CORPUSCULAR HEMOGLOBIN 28 pg (25-35); MEAN CORPUSCULAR HGB CONC 33 g/dL (31-37); MEAN CORPUSCULAR VOLUME 86 fL (79-100); MONO % 7 % (0-9); NEUT % 87 % (31-73); PLATELET COUNT 142 x10^3/uL (140-400); RED BLOOD COUNT 2.92 x10^6/uL (3.50-5.40); RED CELL DISTRIBUTION WIDTH 13.6 % (11.5-14.5); WHITE BLOOD COUNT 8.3 x10^3/uL (4.0-11.0)
[2016-07-17 05:19] LABS: CALCIUM 8.4 mg/dL (8.5-10.1); CREATININE 1.5 mg/dL (0.6-1.0); GFR 35.7; POTASSIUM 4.5 mmol/L (3.5-5.1)
[2016-07-17 07:47] LABS: PLT ESTIMATE ADEQUATE (ADEQUATE)
[2016-07-17] MEDS: SENNOSIDES/DOCUSATE 8.6/50MG TABLET. PO SCH ×2 (08:48→21:18)
[2016-07-17] MEDS: LOSARTAN POTASSIUM 50 MG TABLET. PO SCH (08:48)
[2016-07-17] MEDS: DOCUSATE SODIUM 100 MG CAPSULE PO SCH ×2 (08:48→21:00)
[2016-07-17] MEDS: FAMOTIDINE 20 MG TABLET. PO SCH (08:48)
[2016-07-17] MEDS: GABAPENTIN 100 MG CAPSULE. PO SCH ×2 (08:48→21:18)
[2016-07-17] MEDS: AMLODIPINE BESYLATE 5 MG TABLET PO SCH (08:49)
[2016-07-17] MEDS: INSULIN ASPART 300 UNITS/3 ML INSULN.PEN SQ SCH ×6 (08:50→16:39)
--- NOTE | 2016-07-17 08:58 | PDOC ---
PROGRESS NOTES Subjective Subjective Patient awake and alert, some trouble finding words at times. Objective Objective Vital Signs Date Time Temp Pulse Resp B/P Pulse Ox O2 Delivery O2 Flow Rate FiO2 07/17/16 07:00 81 130/63 07/17/16 07:00 12 95 Room Air 07/17/16 04:00 98.1 98.1 07/16/16 13:00 2.0 Intake and Output 07/17/16 07:00 Intake Total 1025 ml Output Total 2185 ml Balance -1160 ml IV Total 1025 ml Output Urine Total 2135 ml Estimated Blood Loss 50 ml Physical Exam Abdomen: Normal bowel sounds, Soft, No tenderness Heart: Regular rate Extremities: No edema General: Alert, Oriented X3, No acute distress Lungs: Clear to auscultation Assessment Assessment Problems Medical Problems: (1) Bone lesion Status: Acute (2) Brain mass Status: Acute (3) Multiple falls Status: Acute (4) Right knee pain Status: Acute (5) Right wrist pain Status: Acute Surgical Problems: (1) Status post craniotomy Status: Acute Plan Plan of Care 1. Metastatic cancer - POD #1 resection of brain mass - stable. Having some intermittent weakness of right arm and leg. Denies pain at this time. Await final Pathology report. Therapies are ordered. Dr Tucker reports a large amount of edema was seen at surgery so anticipate some deficits for awhile. Continue Decadron, also on Gabapentin now. Some post-operative anemia present. Follow lab for this and transfuse if lower tomorrow. 2. DM2 - blood sugars continue elevated, increase insulins. 3. HTN - controlled, continue present meds. Comment Review of Relevant I have reviewed the following items tiffany (where applicable) has been applied. Labs Laboratory Tests Test 07/15/16 11:34 07/15/16 11:40 07/15/16 16:33 07/15/16 21:24 Glucose (Fingerstick) 317mg/dL (70-99) 218mg/dL (70-99) 254mg/dL (70-99) Prothrombin Time 14.6SEC (11.7-14.0) Prothromb Time International Ratio 1.2 (0.8-1.1) Test 07/16/16 07:35 07/16/16 11:17 07/16/16 12:20 07/16/16 13:25 Glucose (Fingerstick) 288mg/dL (70-99) 272mg/dL (70-99) 224mg/dL (70-99) Nasal Screen MRSA (PCR) Negative (Negative) Test 07/16/16 17:07 07/16/16 19:29 07/17/16 04:40 Glucose (Fingerstick) 307mg/dL (70-99) 293mg/dL (70-99) White Blood Count 8.3x10^3/uL (4.0-11.0) Red Blood Count 2.92x10^6/uL (3.50-5.40) Hemoglobin 8.2g/dL (12.0-15.5) Hematocrit 25.1% (36.0-47.0) Mean Corpuscular Volume 86fL (79-100) Mean Corpuscular Hemoglobin 28pg (25-35) Mean Corpuscular Hemoglobin Concent 33g/dL (31-37) Red Cell Distribution Width 13.6% (11.5-14.5) Platelet Count 142x10^3/uL (140-400) Neutrophils (%) (Auto) 87% (31-73) Lymphocytes (%) (Auto) 5% (24-48) Monocytes (%) (Auto) 7% (0-9) Eosinophils (%) (Auto) 0% (0-3) Basophils (%) (Auto) 0% (0-3) Neutrophils # (Auto) 7.3x10^3uL (1.8-7.7) Lymphocytes # (Auto) 0.4x10^3/uL (1.0-4.8) Monocytes # (Auto) 0.6x10^3/uL (0.0-1.1) Eosinophils # (Auto) 0.0x10^3/uL (0.0-0.7) Basophils # (Auto) 0.0x10^3/uL (0.0-0.2) Segmented Neutrophils % 88% (35-66) Lymphocytes % 10% (24-48) Monocytes % 2% (0-10) Platelet Estimate Adequate (ADEQUATE) Sodium Level 144mmol/L (136-145) Potassium Level 4.5mmol/L (3.5-5.1) Chloride Level 108mmol/L (98-107) Carbon Dioxide Level 22mmol/L (21-32) Anion Gap 14 (6-14) Blood Urea Nitrogen 44mg/dL (7-20) Creatinine 1.5mg/dL (0.6-1.0) Estimated GFR (Cockcroft-Gault) 35.7 Glucose Level 237mg/dL (70-99) Calcium Level 8.4mg/dL (8.5-10.1) Laboratory Tests Test 07/16/16 11:17 07/16/16 12:20 07/16/16 13:25 07/16/16 17:07 Glucose (Fingerstick) 272mg/dL (70-99) 224mg/dL (70-99) 307mg/dL (70-99) Nasal Screen MRSA (PCR) Negative (Negative) Test 07/16/16 19:29 07/17/16 04:40 Glucose (Fingerstick) 293mg/dL (70-99) White Blood Count 8.3x10^3/uL (4.0-11.0) Red Blood Count 2.92x10^6/uL (3.50-5.40) Hemoglobin 8.2g/dL (12.0-15.5) Hematocrit 25.1% (36.0-47.0) Mean Corpuscular Volume 86fL (79-100) Mean Corpuscular Hemoglobin 28pg (25-35) Mean Corpuscular Hemoglobin Concent 33g/dL (31-37) Red Cell Distribution Width 13.6% (11.5-14.5) Platelet Count 142x10^3/uL (140-400) Neutrophils (%) (Auto) 87% (31-73) Lymphocytes (%) (Auto) 5% (24-48) Monocytes (%) (Auto) 7% (0-9) Eosinophils (%) (Auto) 0% (0-3) Basophils (%) (Auto) 0% (0-3) Neutrophils # (Auto) 7.3x10^3uL (1.8-7.7) Lymphocytes # (Auto) 0.4x10^3/uL (1.0-4.8) Monocytes # (Auto) 0.6x10^3/uL (0.0-1.1) Eosinophils # (Auto) 0.0x10^3/uL (0.0-0.7) Basophils # (Auto) 0.0x10^3/uL (0.0-0.2) Segmented Neutrophils % 88% (35-66) Lymphocytes % 10% (24-48) Monocytes % 2% (0-10) Platelet Estimate Adequate (ADEQUATE) Sodium Level 144mmol/L (136-145) Potassium Level 4.5mmol/L (3.5-5.1) Chloride Level 108mmol/L (98-107) Carbon Dioxide Level 22mmol/L (21-32) Anion Gap 14 (6-14) Blood Urea Nitrogen 44mg/dL (7-20) Creatinine 1.5mg/dL (0.6-1.0) Estimated GFR (Cockcroft-Gault) 35.7 Glucose Level 237mg/dL (70-99) Calcium Level 8.4mg/dL (8.5-10.1) Medications Current Medications Ondansetron HCl (Zofran) 4 mg PRN Q8HRS PRN IV NAUSEA/VOMITING; Start 07/12/16 at 23:45; Stop 07/13/16 at 23:44; Status DC Morphine Sulfate 4 mg PRN Q2HR PRN IV PAIN; Start 07/12/16 at 23:45; Stop 07/13 at 23:44; Status DC Acetaminophen (Tylenol) 650 mg PRN Q4HRS PRN PO FEVER Last administered on 07/13 00:55; Start 07/12/16 at 23:45; Stop 07/13/16 at 23:44; Status DC Amlodipine Besylate (Norvasc) 5 mg DAILY08 PO Last administered on 07/16/16 07 :40; Start 07/13/16 at 10:00 Lisinopril (Prinivil) 20 mg DAILY PO Last administered on 07/14/16 08:53; Start 07/13/16 at 10:00; Stop 07/14/16 at 13:24; Status DC Insulin Detemir (Levemir) 20 units DAILY SQ ; Start 07/13/16 at 10:00; Stop at 19:09; Status DC Lorazepam (Ativan) 0.25 mg 1X ONCE PO Last administered on 07/13/16 12:38; Start 07/13/16 at 12:30; Stop 07/13/16 at 12:31; Status DC Lorazepam (Ativan) 0.25 mg 1X ONCE IV Last administered on 07/13/16 14:10; Start 07/13/16 at 13:30; Stop 07/13/16 at 13:31; Status DC Iohexol (Omnipaque 240 Mg/ml) 50 ml 1X ONCE PO Last administered on 07/13/16 14:14; Start 07/13/16 at 13:45; Stop 07/13/16 at 13:46; Status DC Info (Do NOT chart on this entry -- for MONITORING) 1 each PRN DAILY PRN MC SEE COMMENTS; Start 07/13/16 at 13:45; Stop 07/15/16 at 13:44; Status DC Gadobutrol (Gadavist) 10 mmol 1X ONCE IV Last administered on 07/13/16 15:04 ; Start 07/13/16 at 15:00; Stop 07/13/16 at 17:10; Status DC Insulin Aspart (Novolog) 0-9 UNITS TIDWMEALS SQ Last administered on 07/16/16 17:25; Start 07/13/16 at 17:00 Dextrose 12.5 gm PRN Q15MIN PRN IV SEE COMMENTS; Start 07/13/16 at 16:00; Status Cancel Gabapentin (Neurontin) 100 mg BID PO Last administered on 07/16/16 07:39; Start 07/13/16 at 21:00 Insulin Aspart (Novolog) 10 units TIDAC SQ Last administered on 07/14/16 12:00 ; Start 07/13/16 at 16:30; Stop 07/14/16 at 13:24; Status DC Insulin Detemir (Levemir) 20 units QHS SQ Last administered on 07/13/16 22:16 ; Start 07/13/16 at 21:00; Stop 07/14/16 at 13:24; Status DC Lorazepam (Ativan) 0.5 mg 1X ONCE PO ; Start 07/14/16 at 11:15; Stop 07/14/16 at 11:16; Status DC Dexamethasone Sodium Phosphate (Decadron) 4 mg Q6HRS IV Last administered on 05:59; Start 07/14/16 at 12:00 Insulin Aspart (Novolog) 20 units TIDAC SQ Last administered on 07/15/16 08:51 ; Start 07/14/16 at 16:30; Stop 07/15/16 at 09:12; Status DC Insulin Detemir (Levemir) 40 units QHS SQ Last administered on 07/14/16 21:49 ; Start 07/14/16 at 21:00; Stop 07/15/16 at 09:12; Status DC Losartan Potassium (Cozaar) 50 mg DAILY PO Last administered on 07/16/16 07:39 ; Start 07/14/16 at 14:00 Insulin Aspart (Novolog) 30 units TIDAC SQ Last administered on 07/15/16 17:48 ; Start 07/15/16 at 12:00 Insulin Detemir 60 units 60 units QHS SQ Last administered on 07/15/16 21:44; Start 07/15/16 at 21:00; Stop 07/16/16 at 08:32; Status DC Cefazolin Sodium 2 gm/Sodium Chloride 100 ml @ 200 mls/hr 1X PREOP IV ; Start 07/15/16 at 10:00; Status UNV Cefazolin Sodium/ Dextrose 50 ml @ 100 mls/hr 1X PREOP PRN IV PRIOR TO PROCEDURE Last administered on 07/16/16 10:00; Start 07/15/16 at 06:00; Stop at 05:59; Status DC Bacitracin/Sodium Chloride (Iv Sodium Chloride 0.9% 1000ml Bag) 1,000 ml @ 1, 000 mls/hr 1X PERIOP ONCE IRR Last administered on 07/16/16 10:22; Start at 06:00; Stop 07/16/16 at 06:59; Status DC Ondansetron HCl (Zofran) 4 mg PRN Q6HRS PRN IV Nausea; Start 07/16/16 at 07:00 ; Stop 07/17/16 at 04:35; Status DC Fentanyl Citrate (Fentanyl 2ml Vial) 25 mcg PRN Q5MIN PRN IV MILD PAIN Last administered on 07/16/16 21:17; Start 07/16/16 at 07:00; Stop 07/17/16 at 04:31 ; Status DC Fentanyl Citrate (Fentanyl 2ml Vial) 50 mcg PRN Q5MIN PRN IV MODERATE PAIN Last administered on 07/16/16 13:08; Start 07/16/16 at 07:00; Stop 07/17/16 at 04:31; Status DC Morphine Sulfate 1 mg 1 mg PRN Q10MIN PRN IV SEVERE PAIN; Start 07/16/16 at 07: 00; Stop 07/17/16 at 04:33; Status DC Lactated Ringer's (Iv Lactated Ringers) 1,000 ml @ 30 mls/hr Q24H IV ; Start at 07:00; Stop 07/16/16 at 18:59; Status DC Lidocaine HCl 2 ml 1X PRN PRN ID IV START; Start 07/16/16 at 07:00; Stop at 06:59; Status DC Hydromorphone HCl (Dilaudid) 0.5 mg PRN Q10MIN PRN IV SEVERE PAIN, Second choice; Start 07/16/16 at 07:00; Stop 07/17/16 at 04:35; Status DC Prochlorperazine Edisylate (Compazine) 5 mg PACU PRN PRN IV NAUSEA; Start 07/16 at 07:00; Stop 07/17/16 at 04:35; Status DC Cellulose 1 each STK-MED ONCE .ROUTE Last administered on 07/16/16 11:21; Start 07/16/16 at 07:14; Stop 07/16/16 at 07:15; Status DC Mannitol (Mannitol) 12.5 g STK-MED ONCE .ROUTE ; Start 07/16/16 at 07:14; Stop 07/16/16 at 07:15; Status DC Gelatin (Gelfoam Size 100) 1 each STK-MED ONCE .ROUTE Last administered on 10:22; Start 07/16/16 at 07:15; Stop 07/16/16 at 07:16; Status DC Thrombin 20,000 unit STK-MED ONCE TP Last administered on 07/16/16 10:22; Start 07/16/16 at 07:15; Stop 07/16/16 at 07:16; Status DC Bupivacaine HCl/ Epinephrine Bitart (Sensorcain-Mpf Epi 0.5%-1:[id number]) 30 ml STK -MED ONCE .ROUTE Last administered on 2/28/17at 10:22; Start 07/16/16 at 07:15 ; Stop 07/16/16 at 07:16; Status DC Remifentanil HCl (Ultiva) 2 mg STK-MED ONCE IV ; Start 07/16/16 at 08:21; Stop 07/16/16 at 08:22; Status DC Glycopyrrolate (Robinul) 1 mg STK-MED ONCE .ROUTE ; Start 07/16/16 at 08:21; Stop 07/16/16 at 08:22; Status DC Desflurane (Suprane) 90 ml STK-MED ONCE IH ; Start 07/16/16 at 08:22; Stop 07/16 at 08:23; Status DC Lidocaine HCl 100 mg STK-MED ONCE .ROUTE ; Start 07/16/16 at 08:22; Stop at 08:23; Status DC Dexamethasone Sodium Phosphate 20 mg 20 mg STK-MED ONCE .ROUTE ; Start 07/16/16 at 08:22; Stop 07/16/16 at 08:23; Status DC Propofol (Diprivan) 20 ml @ As Directed STK-MED ONCE IV ; Start 07/16/16 at 08: 22; Stop 07/16/16 at 08:23; Status DC Ondansetron HCl (Zofran) 4 mg STK-MED ONCE .ROUTE ; Start 07/16/16 at 08:22; Stop 07/16/16 at 08:23; Status DC Phenylephrine HCl (Thom-Synephrine Inj) 10 mg STK-MED ONCE .ROUTE ; Start at 08:22; Stop 07/16/16 at 08:23; Status DC Rocuronium [place] (Zemuron) 50 mg STK-MED ONCE .ROUTE ; Start 07/16/16 at 08:22 ; Stop 07/16/16 at 08:23; Status DC Gadobutrol (Gadavist) 9 mmol 1X ONCE IV Last administered on 07/16/16t 08:30; Start 07/16/16 at 08:30; Stop 07/16/16 at 08:31; Status DC Insulin Detemir 70 units 70 units QHS SQ Last administered on 07/16/16t 19:31; Start 07/16/16 at 21:00 Propofol (Diprivan) 100 ml @ As Directed STK-MED ONCE IV ; Start 07/16/16 at 08 :33; Stop 07/16/16 at 08:34; Status DC Mannitol (Mannitol) 12.5 g STK-MED ONCE .ROUTE ; Start 07/16/16 at 08:34; Stop 07/16/16 at 08:35; Status DC Fentanyl Citrate (Fentanyl 2ml Vial) 100 mcg STK-MED ONCE .ROUTE ; Start at 08:36; Stop 07/16/16 at 08:37; Status DC Gelatin (Gelfoam Powder) 1 gm STK-MED ONCE .ROUTE Last administered on t 10:22; Start 07/16/16 at 08:57; Stop 07/16/16 at 08:58; Status DC Ephedrine Sulfate 50 mg STK-MED ONCE IV ; Start 07/16/16 at 09:37; Stop at 09:38; Status DC Ephedrine Sulfate 50 mg STK-MED ONCE IV ; Start 07/16/16 at 10:30; Stop at 10:31; Status DC Glycopyrrolate (Robinul) 1 mg STK-MED ONCE .ROUTE ; Start 07/16/16 at 10:31; Stop 07/16/16 at 10:32; Status DC Thrombin 20,000 unit STK-MED ONCE TP Last administered on 07/16/16t 10:53; Start 07/16/16 at 10:34; Stop 07/16/16 at 10:35; Status DC Insulin Human Regular (Novolin R Vial) 100 unit STK-MED ONCE .ROUTE ; Start at 11:19; Stop 07/16/16 at 11:20; Status DC Lidocaine HCl 100 mg STK-MED ONCE .ROUTE ; Start 07/16/16 at 11:53; Stop at 11:54; Status DC Labetalol HCl 5 mg 5 mg PRN Q15MIN PRN IV HYPERTENSION, SEE COMMENTS; Start at 12:15 Nicardipine HCl/ Sodium Chloride (Cardene/Iv Sodium Chloride 0.9% 250ml) 270 ml @ 27 mls/hr TITRATE PRN IV PER PROTOCOL; Start 07/16/16 at 12:15 Hydralazine HCl (Apresoline) 5 mg PRN Q6HRS PRN IVP TO KEEP SBP<140mmHg Last administered on 07/17/16 05:07; Start 07/16/16 at 12:15 Al Hydrox/Mg Hydrox/Simethicone (Mylanta Plus Xs) 30 ml PRN Q3HRS PRN PO HEARTBURN / GAS; Start 07/16/16 at 12:15 Calcium Carbonate/ Glycine (Tums) 500 mg PRN Q3HRS PRN PO INDIGESTION; Start at 12:15 Diphenhydramine HCl (Benadryl) 25 mg PRN Q6HRS PRN PO ITCHING; Start 07/16/16 at 12:15 Diphenhydramine HCl (Benadryl) 25 mg PRN Q6HRS PRN IV ITCHING; Start 07/16/16 at 12:15 Famotidine (Pepcid) 20 mg BID PO Last administered on 07/16/16 15:22; Start at 13:00 Sodium Chloride (Normal Saline Flush) 3 ml QSHIFT PRN IV AFTER MEDS AND BLOOD DRAWS; Start 07/16/16 at 12:15 Dextrose 12.5 gm PRN Q15MIN PRN IV SEE COMMENTS; Start 07/16/16 at 12:15 Oxycodone/ Acetaminophen (Percocet 5/325) 1 tab PRN Q4HRS PRN PO MILD PAIN, 1ST CHOICE; Start 07/16/16 at 12:15 Oxycodone/ Acetaminophen (Percocet 5/325) 2 tab PRN Q4HRS PRN PO MODERATE PAIN , SEVERE PAIN; Start 07/16/16 at 12:15 Senna/Docusate Sodium (Senna Plus) 1 tab BID PO Last administered on 07/16/16 15:22; Start 07/16/16 at 13:00 Docusate Sodium (Colace) 100 mg BID PO Last administered on 07/16/16 15:22; Start 07/16/16 at 13:00 Magnesium Hydroxide (Milk Of Magnesia) 2,400 mg PRN Q12HR PRN PO CONSTIPATION; Start 07/16/16 at 12:15 Ondansetron HCl (Zofran) 4 mg PRN Q6HRS PRN IV NAUESA, 1ST CHOICE; Start at 12:15 Fentanyl Citrate (Fentanyl 2ml Vial) 50 mcg PRN Q1HR PRN IV SEVERE PAIN; Start 07/16/16 at 12:15 Fentanyl Citrate (Fentanyl 2ml Vial) 25 mcg PRN Q1HR PRN IV SEVERE PAIN Last administered on 07/16/16t 17:24; Start 07/16/16 at 12:15 Active Scripts Active Reported [insulin lispro] [gabapentin] PO DAILY Lisinopril 20 Mg Tablet 1 Tab PO DAILY Ida Conrad (Insulin Glargine,Hum.rec.anlog) 300 Unit/1 Ml Insuln.pen 25 Unit SQ DAILY Vitamin D2 (Ergocalciferol (Vitamin D2)) 50,000 Unit Capsule 1 Cap PO WEEKLY Norvasc (Amlodipine Besylate) 5 Mg Tablet 1 Tab PO DAILY08 Vitals/I & O Vital Sign - Last 24 Hours 07/16/16 07/16/16 07/16/16 07/16/16 12:14 12:15 12:24 12:34 Temp 97.8 97.8 97.8 97.8 97.8 97.8 Pulse 91 92 98 Resp 16 18 18 B/P 137/63 119/60 133/70 Pulse Ox 100 100 100 O2 Delivery Room Air Mask Simple Mask Simple Mask O2 Flow Rate 6 6 6 6 07/16/16 07/16/16 07/16/16 07/16/16 12:44 12:49 13:00 13:00 Temp 97.8 97.8 Pulse 87 88 Resp 20 20 12 B/P 130/63 131/71 Pulse Ox 100 100 95 O2 Delivery Simple Mask Simple Mask Nasal Cannula Nasal Cannula O2 Flow Rate 6.0 6.0 2.0 2.0 07/16/16 07/16/16 07/16/16 07/16/16 13:00 13:04 13:08 13:19 Temp 97.6 97.6 97.6 97.6 Pulse 88 87 92 Resp 20 20 20 B/P 144/56 131/71 130/63 Pulse Ox 93 96 94 O2 Delivery Room Air Room Air Room Air 07/16/16 07/16/16 07/16/16 07/16/16 13:34 13:38 14:00 14:00 Temp 97.6 97.6 Pulse 97 90 90 Resp 20 13 B/P 136/49 126/50 130/58 Pulse Ox 93 94 O2 Delivery Room Air Room Air Room Air 07/16/16 07/16/16 07/16/16 07/16/16 14:09 15:00 15:00 16:00 Pulse 105 84 84 88 Resp 11 12 18 B/P 145/60 142/61 142/61 132/54 Pulse Ox 94 94 92 O2 Delivery Room Air Room Air Room Air 07/16/16 07/16/16 07/16/16 07/16/16 16:00 16:00 17:00 17:00 Temp 98.4 98.4 Pulse 88 98 98 Resp 18 B/P 132/54 128/56 128/56 Pulse Ox 92 O2 Delivery Room Air Room Air 07/16/16 07/16/16 07/16/16 07/16/16 17:24 17:54 18:00 18:00 Temp 98.4 98.4 Pulse 96 96 Resp 17 B/P 124/52 124/52 Pulse Ox 93 O2 Delivery Room Air Room Air Room Air 07/16/16 07/16/16 07/16/16 07/16/16 19:00 19:00 20:00 20:00 Temp 97.8 97.8 Pulse 102 102 106 Resp 17 17 B/P 128/54 128/54 130/56 Pulse Ox 94 93 O2 Delivery Room Air Room Air Room Air 07/16/16 07/16/16 07/16/16 07/16/16 20:00 21:00 21:00 21:17 Pulse 106 96 96 Resp 18 18 B/P 130/56 145/63 145/63 Pulse Ox 93 93 O2 Delivery Room Air Room Air 07/16/16 07/16/16 07/16/16 07/16/16 22:00 22:00 23:00 23:00 Pulse 93 93 90 90 Resp 16 15 B/P 126/62 126/62 130/62 130/62 Pulse Ox 93 92 O2 Delivery Room Air Room Air 07/17/16 07/17/16 07/17/16 07/17/16 00:00 00:00 00:00 00:13 Temp 97.7 97.7 Pulse 84 84 Resp 11 16 B/P 106/68 106/68 Pulse Ox 92 94 O2 Delivery Room Air Room Air Room Air 07/17/16 07/17/16 07/17/16 07/17/16 01:00 01:00 02:00 02:00 Pulse 82 82 84 84 Resp 9 8 B/P 112/68 112/68 135/65 135/65 Pulse Ox 92 91 O2 Delivery Room Air Room Air 07/17/16 07/17/16 07/17/16 07/17/16 03:00 03:00 04:00 04:00 Temp 98.1 98.1 Pulse 91 91 94 94 Resp 14 13 B/P 111/79 111/79 139/59 139/59 Pulse Ox 93 93 O2 Delivery Room Air Room Air 07/17/16 07/17/16 07/17/16 07/17/16 04:00 05:00 05:00 05:07 Pulse 114 114 83 Resp 12 B/P 178/50 178/50 168/79 Pulse Ox 94 O2 Delivery Room Air Room Air 07/17/16 07/17/16 07/17/16 07/17/16 06:00 06:00 07:00 07:00 Pulse 98 98 81 81 Resp 14 12 B/P 102/64 102/64 130/63 130/63 Pulse Ox 94 95 O2 Delivery Room Air Room Air Intake and Output 07/16/16 07/16/16 07/17/16 15:00 23:00 07:00 Intake Total 1025 ml Output Total 750 ml 790 ml 645 ml Balance 275 ml -790 ml -645 ml SUSY TOLENTINO MD Jul 17, 2016 08:58
--- NOTE | 2016-07-17 09:07 | PDOC ---
SUBJECTIVE Subjective Denies acute complaints this AM. Right sided weakness present. OBJECTIVE Vital Signs Vital Signs Date Time Temp Pulse Resp B/P Pulse Ox O2 Delivery O2 Flow Rate FiO2 07/17/16 08:49 98 158/77 07/17/16 08:48 98 158/77 07/17/16 07:00 81 130/63 07/17/16 07:00 81 12 130/63 95 Room Air 07/17/16 06:00 98 102/64 07/17/16 06:00 98 14 102/64 94 Room Air 07/17/16 05:07 83 168/79 07/17/16 05:00 114 178/50 07/17/16 05:00 114 12 178/50 94 Room Air 07/17/16 04:00 Room Air 07/17/16 04:00 94 139/59 07/17/16 04:00 98.1 94 13 139/59 93 Room Air 98.1 07/17/16 03:00 91 14 111/79 93 Room Air 07/17/16 03:00 91 111/79 07/17/16 02:00 84 135/65 07/17/16 02:00 84 8 135/65 91 Room Air 07/17/16 01:00 82 112/68 07/17/16 01:00 82 9 112/68 92 Room Air 07/17/16 00:13 16 94 Room Air 07/17/16 00:00 84 106/68 07/17/16 00:00 97.7 84 11 106/68 92 Room Air 97.7 07/17/16 00:00 Room Air 07/16/16 23:00 90 15 130/62 92 Room Air 07/16/16 23:00 90 130/62 07/16/16 22:00 93 16 126/62 93 Room Air 07/16/16 22:00 93 126/62 07/16/16 21:17 18 93 Room Air 07/16/16 21:00 96 18 145/63 93 Room Air 07/16/16 21:00 96 145/63 07/16/16 20:00 106 130/56 07/16/16 20:00 Room Air 07/16/16 20:00 97.8 106 17 130/56 93 Room Air 97.8 07/16/16 19:00 102 128/54 07/16/16 19:00 102 17 128/54 94 Room Air 07/16/16 18:00 96 124/52 07/16/16 18:00 98.4 96 17 124/52 93 Room Air 98.4 07/16/16 17:54 Room Air 07/16/16 17:24 Room Air 07/16/16 17:00 98.4 98 18 128/56 92 Room Air 98.4 07/16/16 17:00 98 128/56 07/16/16 16:00 Room Air 07/16/16 16:00 88 132/54 07/16/16 16:00 88 18 132/54 92 Room Air 07/16/16 15:00 84 142/61 07/16/16 15:00 84 12 142/61 94 Room Air 07/16/16 14:09 105 11 145/60 94 Room Air 07/16/16 14:00 90 13 130/58 94 Room Air 07/16/16 14:00 90 126/50 07/16/16 13:38 Room Air 07/16/16 13:34 97.6 97 20 136/49 93 Room Air 97.6 07/16/16 13:19 97.6 92 20 130/63 94 Room Air 97.6 07/16/16 13:08 20 96 Room Air 07/16/16 13:04 97.6 87 20 131/71 93 Room Air 97.6 07/16/16 13:00 88 144/56 07/16/16 13:00 Nasal Cannula 2.0 07/16/16 13:00 88 12 131/71 95 Nasal Cannula 2.0 07/16/16 12:49 97.8 87 20 130/63 100 Simple Mask 6.0 97.8 07/16/16 12:44 20 100 Simple Mask 6.0 07/16/16 12:34 97.8 98 18 133/70 100 Simple Mask 6 97.8 07/16/16 12:24 97.8 92 18 119/60 100 Simple Mask 6 97.8 07/16/16 12:15 Mask 6 07/16/16 12:14 97.8 91 16 137/63 100 Room Air 6 97.8 I & O Intake and Output 07/17/16 07:00 Intake Total 1025 ml Output Total 2185 ml Balance -1160 ml IV Total 1025 ml Output Urine Total 2135 ml Estimated Blood Loss 50 ml PHYSICAL EXAM Physical Exam AA, NAD, PERRL, face symmetric, RUE 3/5 intraoperative neuro tech, 1/5 movement more proximal, wiggles toes, DF, PF 2-/5, able to hold KE against gravity when examiner lifts proximal leg but unable to extend against gravity when knee flexed, sensation intact LT, dressing c/d/i ASSESSMENT/PLAN Assessment/Plan POD 1 craniotomy for brain mass -routine post-op MRI today -continue therapies and advance activities as able -decadron taper over few weeks after d/c -if continues to be stable with stable imaging, could downgrade from ICU status from NS standpoint Problems: COMMENT Lab Laboratory Tests Test 07/16/16 11:17 07/16/16 12:20 07/16/16 13:25 07/16/16 17:07 Glucose (Fingerstick) 272mg/dL (70-99) 224mg/dL (70-99) 307mg/dL (70-99) Nasal Screen MRSA (PCR) Negative (Negative) Test 07/16/16 19:29 07/17/16 04:40 Glucose (Fingerstick) 293mg/dL (70-99) White Blood Count 8.3x10^3/uL (4.0-11.0) Red Blood Count 2.92x10^6/uL (3.50-5.40) Hemoglobin 8.2g/dL (12.0-15.5) Hematocrit 25.1% (36.0-47.0) Mean Corpuscular Volume 86fL (79-100) Mean Corpuscular Hemoglobin 28pg (25-35) Mean Corpuscular Hemoglobin Concent 33g/dL (31-37) Red Cell Distribution Width 13.6% (11.5-14.5) Platelet Count 142x10^3/uL (140-400) Neutrophils (%) (Auto) 87% (31-73) Lymphocytes (%) (Auto) 5% (24-48) Monocytes (%) (Auto) 7% (0-9) Eosinophils (%) (Auto) 0% (0-3) Basophils (%) (Auto) 0% (0-3) Neutrophils # (Auto) 7.3x10^3uL (1.8-7.7) Lymphocytes # (Auto) 0.4x10^3/uL (1.0-4.8) Monocytes # (Auto) 0.6x10^3/uL (0.0-1.1) Eosinophils # (Auto) 0.0x10^3/uL (0.0-0.7) Basophils # (Auto) 0.0x10^3/uL (0.0-0.2) Segmented Neutrophils % 88% (35-66) Lymphocytes % 10% (24-48) Monocytes % 2% (0-10) Platelet Estimate Adequate (ADEQUATE) Sodium Level 144mmol/L (136-145) Potassium Level 4.5mmol/L (3.5-5.1) Chloride Level 108mmol/L (98-107) Carbon Dioxide Level 22mmol/L (21-32) Anion Gap 14 (6-14) Blood Urea Nitrogen 44mg/dL (7-20) Creatinine 1.5mg/dL (0.6-1.0) Estimated GFR (Cockcroft-Gault) 35.7 Glucose Level 237mg/dL (70-99) Calcium Level 8.4mg/dL (8.5-10.1) ZBIGNIEW RUBY MD Jul 17, 2016 09:07
[2016-07-17] MEDS: LORAZEPAM 0.5 MG TABLET. PO PRN (12:26)
[2016-07-17] MEDS ORDERED: LORAZEPAM 2 MG/ML VIAL IV ONE (13:30)
[2016-07-17] MEDS ORDERED: GADOBUTROL 10 MMOL/10 ML VIAL IV ONE (14:15)
--- NOTE | 2016-07-17 14:48 | RAD ---
PROCEDURE MRI brain without and with contrast HISTORY Postop tumor resection, craniotomy for brain mass TECHNIQUE Multiplanar, multi sequential pre and post contrast MR imaging was performed of the brain Contrast: 9 cc Gadavist COMPARISON Diagnostic exam 07/13/2016 FINDINGS There is motion degradation. There has been interval left frontal parietal craniotomy. There is hemorrhage of the site of previously seen left parasagittal frontal mass. Focus of hemorrhage measures approximately 2.1 centimeters AP x 1.2 cm transverse by 2.8 cm cc. Residual enhancement is difficult to evaluate given inherent T1 shortening. There is some mild dural enhancement underlying the craniotomy site. There is mild extra-axial fluid underlying the craniotomy site. There is again extensive vasogenic edema of the left frontal parietal lobes. Ventricular size is stable. There is again tiny focus of enhancement of the left occipital lobe such as seen sagittal image 12 and coronal image 2 measuring approximately 0.3 cm. There is preservation of the major arterial intracranial flow voids at the skull base. There is patchy very minimal ethmoid air cell mucosal thickening. There is again mild thickening and fluid of the right mastoid air cells. There is mild diffusion signal abnormality about the focus of hemorrhage/resection cavity. There is now fluid of the left parietal scalp. IMPRESSION 1. There is now focus of hemorrhage at site of previously seen left parasagittal frontal mass, mild dural enhancement underlying the left frontal parietal craniotomy site and minimal extra-axial fluid. No obvious residual enhancement is identified in this area although limited evaluation due to inherent T1 shortening for which attention on future followup advised. There is extensive vasogenic edema of the left frontal parietal lobes as seen previously. Tiny focus of parenchymal enhancement of the left occipital lobe is again noted, attention on future followup advised. Electronically signed by: Jf Ravi MD (Jul 17, 2016 14:47:19)
--- NOTE | 2016-07-17 16:40 | PATHOLOGY ---
PATHOLOGY REPORT * * * * * * * * FINAL DIAGNOSIS: Brain mass resection: - METASTATIC CLEAR CELL CARCINOMA, CONSISTENT WITH RENAL ORIGIN. COMMENT: Sections of the brain mass resection reveal segments of cortical and white matter tissue. There are areas of replacement of brain tissue by a metastatic malignant epithelial neoplasm. The malignant cells are present in solid nests. The malignant cells have ample amounts of clear cytoplasm, and possess slightly enlarged, rounded to irregular hyperchromatic nuclei containing inconspicuous or small nucleoli. The tumor is richly vascular. The surrounding brain tissue shows foci of reactive gliosis. The morphologic features are supportive of the diagnosis of metastatic clear cell carcinoma and are consistent with renal origin. The case is also examined by Dr. Lennon, who concurs with the diagnosis. (JPM:mgr; d/t: 07/17/16) REPORT ELECTRONICALLY SIGNED BY: Keenan Farris M.D. DATE/TIME: 07/17/2016 16:40 * * * * * * * * GROSS PATHOLOGY: A The specimen is received fresh for intraoperative consultation and is designated "brain mass." This consists of multiple small and one larger irregular segment of rodriguez-white and pinkish brown soft tissue. The segments range from as small as 0.4 cm up to 1.7 cm in greatest dimension. A service representative portion of the specimen is submitted for frozen section as FSA1. The tissue remaining from frozen section is submitted for permanent sections as A1. (JPM:mgr; d/t: 07/16/16) FROZEN SECTION DIAGNOSIS: (Sandra Farris M.D.) Brain mass: - METASTATIC CARCINOMA CONSISTENT WITH RENAL ORIGIN. The results are reported to Dr. Tucker in the operating room. The remaining tissue is submitted for microscopy as A2. (JPM:mgr; d/t: 07/16/16) Testing performed by [facility] at [address] [address] INITIAL CPT CODE(S): A; 85918, 44999 Professional services performed by [facility] at [address] [address] Technical services performed by [facility] at [address] [place] [address], [address], [place] [address]. SPECIMEN(S) RECEIVED: A.Brain mass CLINICAL HISTORY: Brain mass PATIENT: CHRIS CHONG RODRIGO/AGE: 11 1960 (Age: 56) PATIENT #: [id number] ALT CASE #: SPECIMEN COLLECTION DATE: 07/16/2016 SPECIMEN RECEIVED DATE: 07/16/2016 [facility] - [address] [place] [address] - PHONE: [phone] * * * END OF REPORT * * *
[2016-07-17] MEDS ORDERED: INSULIN ASPART 300 UNITS/3 ML INSULN.PEN SQ ONE (16:45)
--- NOTE | 2016-07-17 18:46 | PDOC ---
PROGRESS NOTES Assessment Assessment IMPRESSION: Metastatic brain disease at left frontal, parietal and occipital lobes, s/p craniotomy. Extensive cerebral vasogenic edema. Multifocal osseous metastatic masses. Right breast mass. DM HTN Obesity. RECOMMENDATIONS/PLAN: She has been treated with Decadron. Keppra if has seizure. Oncology consulted. Discussed with her family at bedside. PAST MEDICAL AND SURGICAL HISTORY: Please see H&P ALLERGY: Reviewed. MEDICATIONS: Refer to MAR REVIEW OF SYSTEMS: Constitutional: No malnutrition, weight loss, cachexia. Head: No traumatic brain or head injury. Skin: No edema, or rash. Ear: No infection, tinnitus. Eyes: No vision loss, or diplopia. Nose: No bleeding or purulent discharges. Hearing: No hearing decrease. Neck: No injury. Breast: Right side mass found this time. Cardiac: HTN Pulmonary: No COPD. GI: No GI Ulcer, GI bleeding. Urinary/genital: UTI. Endocrine: Diabetes Mellitus, obesity. Skeletomuscular: Generalized weakness. Neurological: see HP. Psychiatric: Denies drug use/abuse. Otherwise, not [id number] review of systems. PHYSICAL EXAMINATION: General appearance in subacute distress. HEENT: Normocephalic and nontraumatic. Eyes, nose, ears, and throat are unremarkable. Hearing decrease. Neck is supple. No lymphadenopathy. No Crepitus. Cardiovascular: S1, S2, regular rate and rhythm. Pulmonary: Clear to auscultation bilaterally. Abdomen: Bowel sounds are positive. Extremities: No rash, lesions, or edema. No restriction of range of motion in left side. NEUROLOGICAL EXAMINATION: Awake. Oriented to place and family members.. PERRL. EOMI. CN: no significant focal findings. Muscle tone: in right UE. Muscle strength: 3- right UE and LE, 4+ left side. DTR: 1-2 Plantar reflex: Neutral response bilaterally Gait: Unable to walk. Sensory exam: Unable to access accurately due to not follow commands well.. No obvious cerebellar signs elicited. Objective Objective Vital Signs Date Time Temp Pulse Resp B/P Pulse Ox O2 Delivery O2 Flow Rate FiO2 07/17/16 16:25 97.7 77 14 138/52 93 Room Air 97.7 07/16/16 13:00 2.0 Intake and Output 07/17/16 07:00 Intake Total 1025 ml Output Total 2185 ml Balance -1160 ml IV Total 1025 ml Output Urine Total 2135 ml Estimated Blood Loss 50 ml Vitals Signs Vitals VS - Last 72 Hours, by Label Date Time Temp Pulse Resp B/P Pulse Ox O2 Delivery O2 Flow Rate FiO2 07/17/16 16:25 97.7 77 14 138/52 93 Room Air 97.7 07/17/16 13:00 84 18 130/65 95 Room Air 07/17/16 12:00 Room Air 07/17/16 12:00 98.3 92 18 146/70 95 Room Air 98.3 07/17/16 11:00 75 20 148/65 95 Room Air 07/17/16 10:00 71 14 142/66 95 Room Air 07/17/16 09:00 91 118/79 07/17/16 09:00 91 17 118/79 93 Room Air 07/17/16 08:49 98 158/77 07/17/16 08:48 98 158/77 07/17/16 08:00 96 147/75 07/17/16 08:00 98.6 96 17 147/75 94 Room Air 98.6 07/17/16 08:00 Room Air 07/17/16 07:00 81 130/63 07/17/16 07:00 81 12 130/63 95 Room Air 07/17/16 06:00 98 102/64 07/17/16 06:00 98 14 102/64 94 Room Air 07/17/16 05:07 83 168/79 07/17/16 05:00 114 178/50 07/17/16 05:00 114 12 178/50 94 Room Air 07/17/16 04:00 Room Air 07/17/16 04:00 94 139/59 07/17/16 04:00 98.1 94 13 139/59 93 Room Air 98.1 07/17/16 03:00 91 14 111/79 93 Room Air 07/17/16 03:00 91 111/79 07/17/16 02:00 84 135/65 07/17/16 02:00 84 8 135/65 91 Room Air 07/17/16 01:00 82 112/68 07/17/16 01:00 82 9 112/68 92 Room Air 07/17/16 00:13 16 94 Room Air 07/17/16 00:00 84 106/68 07/17/16 00:00 97.7 84 11 106/68 92 Room Air 97.7 07/17/16 00:00 Room Air 07/16/16 23:00 90 15 130/62 92 Room Air 07/16/16 23:00 90 130/62 07/16/16 22:00 93 16 126/62 93 Room Air 07/16/16 22:00 93 126/62 07/16/16 21:17 18 93 Room Air 07/16/16 21:00 96 18 145/63 93 Room Air 07/16/16 21:00 96 145/63 07/16/16 20:00 106 130/56 07/16/16 20:00 Room Air 07/16/16 20:00 97.8 106 17 130/56 93 Room Air 97.8 07/16/16 19:00 102 128/54 07/16/16 19:00 102 17 128/54 94 Room Air 07/16/16 18:00 96 124/52 07/16/16 18:00 98.4 96 17 124/52 93 Room Air 98.4 07/16/16 17:54 Room Air 07/16/16 17:24 Room Air 07/16/16 17:00 98.4 98 18 128/56 92 Room Air 98.4 07/16/16 17:00 98 128/56 07/16/16 16:00 Room Air 07/16/16 16:00 88 132/54 07/16/16 16:00 88 18 132/54 92 Room Air 07/16/16 15:00 84 142/61 07/16/16 15:00 84 12 142/61 94 Room Air 07/16/16 14:09 105 11 145/60 94 Room Air 07/16/16 14:00 90 13 130/58 94 Room Air 07/16/16 14:00 90 126/50 07/16/16 13:38 Room Air 07/16/16 13:34 97.6 97 20 136/49 93 Room Air 97.6 07/16/16 13:19 97.6 92 20 130/63 94 Room Air 97.6 07/16/16 13:08 20 96 Room Air 07/16/16 13:04 97.6 87 20 131/71 93 Room Air 97.6 07/16/16 13:00 88 144/56 07/16/16 13:00 Nasal Cannula 2.0 07/16/16 13:00 88 12 131/71 95 Nasal Cannula 2.0 07/16/16 12:49 97.8 87 20 130/63 100 Simple Mask 6.0 97.8 07/16/16 12:44 20 100 Simple Mask 6.0 07/16/16 12:34 97.8 98 18 133/70 100 Simple Mask 6 97.8 07/16/16 12:24 97.8 92 18 119/60 100 Simple Mask 6 97.8 07/16/16 12:15 Mask 6 07/16/16 12:14 97.8 91 16 137/63 100 Room Air 6 97.8 07/16/16 08:00 Room Air 07/16/16 07:55 97.4 83 16 167/76 94 Room Air 97.4 07/16/16 07:40 78 177/81 07/16/16 07:39 78 177/81 07/16/16 07:00 98.0 91 18 154/67 94 Room Air 98.0 Laboratory Laboratory Laboratory Tests Test 07/16/16 19:29 07/17/16 04:40 07/17/16 12:12 07/17/16 16:15 Glucose (Fingerstick) 293mg/dL (70-99) 214mg/dL (70-99) 49mg/dL (70-99) White Blood Count 8.3x10^3/uL (4.0-11.0) Red Blood Count 2.92x10^6/uL (3.50-5.40) Hemoglobin 8.2g/dL (12.0-15.5) Hematocrit 25.1% (36.0-47.0) Mean Corpuscular Volume 86fL (79-100) Mean Corpuscular Hemoglobin 28pg (25-35) Mean Corpuscular Hemoglobin Concent 33g/dL (31-37) Red Cell Distribution Width 13.6% (11.5-14.5) Platelet Count 142x10^3/uL (140-400) Neutrophils (%) (Auto) 87% (31-73) Lymphocytes (%) (Auto) 5% (24-48) Monocytes (%) (Auto) 7% (0-9) Eosinophils (%) (Auto) 0% (0-3) Basophils (%) (Auto) 0% (0-3) Neutrophils # (Auto) 7.3x10^3uL (1.8-7.7) Lymphocytes # (Auto) 0.4x10^3/uL (1.0-4.8) Monocytes # (Auto) 0.6x10^3/uL (0.0-1.1) Eosinophils # (Auto) 0.0x10^3/uL (0.0-0.7) Basophils # (Auto) 0.0x10^3/uL (0.0-0.2) Segmented Neutrophils % 88% (35-66) Lymphocytes % 10% (24-48) Monocytes % 2% (0-10) Platelet Estimate Adequate (ADEQUATE) Sodium Level 144mmol/L (136-145) Potassium Level 4.5mmol/L (3.5-5.1) Chloride Level 108mmol/L (98-107) Carbon Dioxide Level 22mmol/L (21-32) Anion Gap 14 (6-14) Blood Urea Nitrogen 44mg/dL (7-20) Creatinine 1.5mg/dL (0.6-1.0) Estimated GFR (Cockcroft-Gault) 35.7 Glucose Level 237mg/dL (70-99) Calcium Level 8.4mg/dL (8.5-10.1) Test 07/17/16 16:34 Glucose (Fingerstick) 108mg/dL (70-99) Medication Medications Current Medications Famotidine (Pepcid) 20 mg DAILY PO ; Start 07/18/16 at 09:00 Gadobutrol (Gadavist) 10 mmol 1X ONCE IV Last administered on 07/17/16 14:24; Start 07/17/16 at 14:15; Stop 07/17/16 at 14:16; Status DC Insulin Aspart (Novolog) 15 units 1X ONCE SQ ; Start 07/17/16 at 16:45; Stop 07/17/16 at 17:08; Status DC Insulin Detemir (Levemir) 70 units QHS SQ Last administered on 07/16/16 19:31 ; Start 07/16/16 at 21:00; Stop 07/17/16 at 08:49; Status DC Insulin Detemir (Levemir) 80 units QHS SQ ; Start 07/17/16 at 21:00 Lorazepam (Ativan) 0.5 mg 1X ONCE IV Last administered on 07/17/16 13:44; Start 07/17/16 at 13:30; Stop 07/17/16 at 13:31; Status DC Lorazepam (Ativan) 0.5 mg PRN Q8HRS PRN PO ANXIETY / AGITATION Last administered on 07/17/16 12:26; Start 07/17/16 at 09:00 Comment Review of Relevant I have reviewed the following items tiffany (where applicable) has been applied. SHANIKA PARK MD Jul 17, 2016 18:46
[2016-07-17] MEDS ORDERED: INSULIN DETEMIR 300 UNITS/3 ML INSULN.PEN. SQ SCH (21:00)
[2016-07-17] MEDS: OXYCODONE/APAP 5/325 TABLET. PO PRN (21:36)
[2016-07-18] VITALS (7 sets, daily range): BP systolic 144–180; BP diastolic 61–80
[2016-07-18] MEDS: DEXAMETHASONE SOD PHOS 4 MG/ML VIAL IV SCH ×5 (00:15→23:40)
[2016-07-18 04:13] LABS: HEMATOCRIT 41.8 % (36.0-47.0); HEMOGLOBIN 13.6 g/dL (12.0-15.5); RED BLOOD COUNT 4.98 x10^6/uL (3.50-5.40); WHITE BLOOD COUNT 14.4 x10^3/uL (4.0-11.0)
[2016-07-18 04:28] LABS: CALCIUM 9.6 mg/dL (8.5-10.1); CREATININE 1.5 mg/dL (0.6-1.0); GFR 35.7; POTASSIUM 4.7 mmol/L (3.5-5.1)
[2016-07-18] MEDS: INSULIN ASPART 300 UNITS/3 ML INSULN.PEN SQ SCH ×6 (07:30→17:41)
[2016-07-18] MEDS: GABAPENTIN 100 MG CAPSULE. PO SCH ×2 (08:17→21:12)
[2016-07-18] MEDS: SENNOSIDES/DOCUSATE 8.6/50MG TABLET. PO SCH ×2 (08:17→21:13)
[2016-07-18] MEDS: DOCUSATE SODIUM 100 MG CAPSULE PO SCH ×2 (08:17→21:00)
[2016-07-18] MEDS: LOSARTAN POTASSIUM 50 MG TABLET. PO SCH (08:18)
[2016-07-18] MEDS: AMLODIPINE BESYLATE 5 MG TABLET PO SCH (08:18)
[2016-07-18] MEDS: FAMOTIDINE 20 MG TABLET. PO SCH (08:18)
--- NOTE | 2016-07-18 08:30 | PDOC ---
PROGRESS NOTES Subjective Subjective Patient denies pain. Objective Objective Vital Signs Date Time Temp Pulse Resp B/P Pulse Ox O2 Delivery O2 Flow Rate FiO2 07/18/16 07:00 97.9 89 16 147/62 91 Room Air 97.9 07/17/16 21:36 2.0 Intake and Output 07/18/16 07:00 Intake Total 290 ml Output Total 1220 ml Balance -930 ml Intake Oral 290 ml Output Urine Total 1220 ml Physical Exam Abdomen: Normal bowel sounds, Soft, No tenderness Heart: Regular rate Extremities: No edema General: Alert (speech is clear but patient answers questions very briefly, said "yes" but corrected herself to "no" when pressed about a possible breast mass mentioned in Dr Adam's note), No acute distress Lungs: Clear to auscultation Neuro: Other (able to lift right leg briefly off the bed, some strength present in right hand) Skin: Other (right breast without palpable mass) Assessment Assessment Problems Medical Problems: (1) Bone lesion Status: Acute (2) Brain mass Status: Acute (3) Multiple falls Status: Acute (4) Right knee pain Status: Acute (5) Right wrist pain Status: Acute Surgical Problems: (1) Status post craniotomy Status: Acute Plan Plan of Care 1. Metastatic renal cell cancer, POD #2 excision of brain mass - stable. still with significant deficits in strength on right side. Continue therapies, will consult speech also as patient does seem to have some trouble with word-finding postoperatively. Anticipate she will need to go to rehab at discharge, she is agreeable to this, SW consulted. 2. postoperative anemia - Hgb increased from 8 to 13 overnight, which is unlikely. Recheck in AM. 3. prerenal azotemia - BUN continues to rise. I's and O's are inaccurate, suspect she is not taking enough fluids po. Will give IVF for 24 hours then recheck lab. 4. DM2 - blood sugars much improved, will decrease insulins and follow. Good appetite for meals. 5. HTN - controlled, continue present meds. 6. possible breast mass? - Dr Adam's note mentions this but patient denies history of this. Exam today unremarkable, patient has had normal mammograms within the past 6 months (results on our office chart). Comment Review of Relevant I have reviewed the following items tiffany (where applicable) has been applied. Labs Laboratory Tests Test 07/16/16 11:17 07/16/16 12:20 07/16/16 13:25 07/16/16 17:07 Glucose (Fingerstick) 272mg/dL (70-99) 224mg/dL (70-99) 307mg/dL (70-99) Nasal Screen MRSA (PCR) Negative (Negative) Test 07/16/16 19:29 07/17/16 04:40 07/17/16 12:12 07/17/16 16:15 Glucose (Fingerstick) 293mg/dL (70-99) 214mg/dL (70-99) 49mg/dL (70-99) White Blood Count 8.3x10^3/uL (4.0-11.0) Red Blood Count 2.92x10^6/uL (3.50-5.40) Hemoglobin 8.2g/dL (12.0-15.5) Hematocrit 25.1% (36.0-47.0) Mean Corpuscular Volume 86fL (79-100) Mean Corpuscular Hemoglobin 28pg (25-35) Mean Corpuscular Hemoglobin Concent 33g/dL (31-37) Red Cell Distribution Width 13.6% (11.5-14.5) Platelet Count 142x10^3/uL (140-400) Neutrophils (%) (Auto) 87% (31-73) Lymphocytes (%) (Auto) 5% (24-48) Monocytes (%) (Auto) 7% (0-9) Eosinophils (%) (Auto) 0% (0-3) Basophils (%) (Auto) 0% (0-3) Neutrophils # (Auto) 7.3x10^3uL (1.8-7.7) Lymphocytes # (Auto) 0.4x10^3/uL (1.0-4.8) Monocytes # (Auto) 0.6x10^3/uL (0.0-1.1) Eosinophils # (Auto) 0.0x10^3/uL (0.0-0.7) Basophils # (Auto) 0.0x10^3/uL (0.0-0.2) Segmented Neutrophils % 88% (35-66) Lymphocytes % 10% (24-48) Monocytes % 2% (0-10) Platelet Estimate Adequate (ADEQUATE) Sodium Level 144mmol/L (136-145) Potassium Level 4.5mmol/L (3.5-5.1) Chloride Level 108mmol/L (98-107) Carbon Dioxide Level 22mmol/L (21-32) Anion Gap 14 (6-14) Blood Urea Nitrogen 44mg/dL (7-20) Creatinine 1.5mg/dL (0.6-1.0) Estimated GFR (Cockcroft-Gault) 35.7 Glucose Level 237mg/dL (70-99) Calcium Level 8.4mg/dL (8.5-10.1) Test 07/17/16 16:34 07/17/16 21:06 07/18/16 02:40 07/18/16 07:08 Glucose (Fingerstick) 108mg/dL (70-99) 157mg/dL (70-99) 174mg/dL (70-99) White Blood Count 14.4x10^3/uL (4.0-11.0) Red Blood Count 4.98x10^6/uL (3.50-5.40) Hemoglobin 13.6g/dL (12.0-15.5) Hematocrit 41.8% (36.0-47.0) Mean Corpuscular Volume 84fL (79-100) Mean Corpuscular Hemoglobin 27pg (25-35) Mean Corpuscular Hemoglobin Concent 33g/dL (31-37) Red Cell Distribution Width 14.0% (11.5-14.5) Platelet Count 227x10^3/uL (140-400) Sodium Level 141mmol/L (136-145) Potassium Level 4.7mmol/L (3.5-5.1) Chloride Level 105mmol/L (98-107) Carbon Dioxide Level 24mmol/L (21-32) Anion Gap 12 (6-14) Blood Urea Nitrogen 54mg/dL (7-20) Creatinine 1.5mg/dL (0.6-1.0) Estimated GFR (Cockcroft-Gault) 35.7 Glucose Level 155mg/dL (70-99) Calcium Level 9.6mg/dL (8.5-10.1) Laboratory Tests Test 07/17/16 12:12 07/17/16 16:15 07/17/16 16:34 07/17/16 21:06 Glucose (Fingerstick) 214mg/dL (70-99) 49mg/dL (70-99) 108mg/dL (70-99) 157mg/dL (70-99) Test 07/18/16 02:40 07/18/16 07:08 White Blood Count 14.4x10^3/uL (4.0-11.0) Red Blood Count 4.98x10^6/uL (3.50-5.40) Hemoglobin 13.6g/dL (12.0-15.5) Hematocrit 41.8% (36.0-47.0) Mean Corpuscular Volume 84fL (79-100) Mean Corpuscular Hemoglobin 27pg (25-35) Mean Corpuscular Hemoglobin Concent 33g/dL (31-37) Red Cell Distribution Width 14.0% (11.5-14.5) Platelet Count 227x10^3/uL (140-400) Sodium Level 141mmol/L (136-145) Potassium Level 4.7mmol/L (3.5-5.1) Chloride Level 105mmol/L (98-107) Carbon Dioxide Level 24mmol/L (21-32) Anion Gap 12 (6-14) Blood Urea Nitrogen 54mg/dL (7-20) Creatinine 1.5mg/dL (0.6-1.0) Estimated GFR (Cockcroft-Gault) 35.7 Glucose Level 155mg/dL (70-99) Calcium Level 9.6mg/dL (8.5-10.1) Glucose (Fingerstick) 174mg/dL (70-99) Medications Current Medications Ondansetron HCl (Zofran) 4 mg PRN Q8HRS PRN IV NAUSEA/VOMITING; Start 07/12/16 at 23:45; Stop 07/13/16 at 23:44; Status DC Morphine Sulfate 4 mg PRN Q2HR PRN IV PAIN; Start 07/12/16 at 23:45; Stop 07/13 at 23:44; Status DC Acetaminophen (Tylenol) 650 mg PRN Q4HRS PRN PO FEVER Last administered on 07/13t 00:55; Start 07/12/16 at 23:45; Stop 07/13/16 at 23:44; Status DC Amlodipine Besylate (Norvasc) 5 mg DAILY08 PO Last administered on 07/17/16 08: 49; Start 07/13/16 at 10:00 Lisinopril (Prinivil) 20 mg DAILY PO Last administered on 07/14/16 08:53; Start 07/13/16 at 10:00; Stop 07/14/16 at 13:24; Status DC Insulin Detemir (Levemir) 20 units DAILY SQ ; Start 07/13/16 at 10:00; Stop at 19:09; Status DC Lorazepam (Ativan) 0.25 mg 1X ONCE PO Last administered on 07/13/16 12:38; Start 07/13/16 at 12:30; Stop 07/13/16 at 12:31; Status DC Lorazepam (Ativan) 0.25 mg 1X ONCE IV Last administered on 07/13/16 14:10; Start 07/13/16 at 13:30; Stop 07/13/16 at 13:31; Status DC Iohexol (Omnipaque 240 Mg/ml) 50 ml 1X ONCE PO Last administered on 07/13/16 14:14; Start 07/13/16 at 13:45; Stop 07/13/16 at 13:46; Status DC Info (Do NOT chart on this entry -- for MONITORING) 1 each PRN DAILY PRN MC SEE COMMENTS; Start 07/13/16 at 13:45; Stop 07/15/16 at 13:44; Status DC Gadobutrol (Gadavist) 10 mmol 1X ONCE IV Last administered on 07/13/16 15:04 ; Start 07/13/16 at 15:00; Stop 07/13/16 at 17:10; Status DC Insulin Aspart (Novolog) 0-9 UNITS TIDWMEALS SQ Last administered on 07/17/16 12:15; Start 07/13/16 at 17:00 Dextrose 12.5 gm PRN Q15MIN PRN IV SEE COMMENTS; Start 07/13/16 at 16:00; Status Cancel Gabapentin (Neurontin) 100 mg BID PO Last administered on 07/17/16 21:18; Start 07/13/16 at 21:00 Insulin Aspart (Novolog) 10 units TIDAC SQ Last administered on 07/14/16 12:00 ; Start 07/13/16 at 16:30; Stop 07/14/16 at 13:24; Status DC Insulin Detemir (Levemir) 20 units QHS SQ Last administered on 07/13/16 22:16 ; Start 07/13/16 at 21:00; Stop 07/14/16 at 13:24; Status DC Lorazepam (Ativan) 0.5 mg 1X ONCE PO ; Start 07/14/16 at 11:15; Stop 07/14/16 at 11:16; Status DC Dexamethasone Sodium Phosphate (Decadron) 4 mg Q6HRS IV Last administered on 06:12; Start 07/14/16 at 12:00 Insulin Aspart (Novolog) 20 units TIDAC SQ Last administered on 07/15/16 08:51 ; Start 07/14/16 at 16:30; Stop 07/15/16 at 09:12; Status DC Insulin Detemir (Levemir) 40 units QHS SQ Last administered on 07/14/16 21:49 ; Start 07/14/16 at 21:00; Stop 07/15/16 at 09:12; Status DC Losartan Potassium (Cozaar) 50 mg DAILY PO Last administered on 07/17/16 08:48 ; Start 07/14/16 at 14:00 Insulin Aspart (Novolog) 30 units TIDAC SQ Last administered on 07/17/16 12:15 ; Start 07/15/16 at 12:00; Stop 07/18/16 at 08:17; Status DC Insulin Detemir 60 units 60 units QHS SQ Last administered on 07/15/16 21:44; Start 07/15/16 at 21:00; Stop 07/16/16 at 08:32; Status DC Cefazolin Sodium 2 gm/Sodium Chloride 100 ml @ 200 mls/hr 1X PREOP IV ; Start 07/15/16 at 10:00; Status UNV Cefazolin Sodium/ Dextrose 50 ml @ 100 mls/hr 1X PREOP PRN IV PRIOR TO PROCEDURE Last administered on 07/16/16 10:00; Start 07/15/16 at 06:00; Stop at 05:59; Status DC Bacitracin/Sodium Chloride (Iv Sodium Chloride 0.9% 1000ml Bag) 1,000 ml @ 1, 000 mls/hr 1X PERIOP ONCE IRR Last administered on 07/16/16 10:22; Start at 06:00; Stop 07/16/16 at 06:59; Status DC Ondansetron HCl (Zofran) 4 mg PRN Q6HRS PRN IV Nausea; Start 07/16/16 at 07:00 ; Stop 07/17/16 at 04:35; Status DC Fentanyl Citrate (Fentanyl 2ml Vial) 25 mcg PRN Q5MIN PRN IV MILD PAIN Last administered on 07/16/16 21:17; Start 07/16/16 at 07:00; Stop 07/17/16 at 04:31 ; Status DC Fentanyl Citrate (Fentanyl 2ml Vial) 50 mcg PRN Q5MIN PRN IV MODERATE PAIN Last administered on 07/16/16 13:08; Start 07/16/16 at 07:00; Stop 07/17/16 at 04:31; Status DC Morphine Sulfate 1 mg 1 mg PRN Q10MIN PRN IV SEVERE PAIN; Start 07/16/16 at 07: 00; Stop 07/17/16 at 04:33; Status DC Lactated Ringer's (Iv Lactated Ringers) 1,000 ml @ 30 mls/hr Q24H IV ; Start at 07:00; Stop 07/16/16 at 18:59; Status DC Lidocaine HCl 2 ml 1X PRN PRN ID IV START; Start 07/16/16 at 07:00; Stop at 06:59; Status DC Hydromorphone HCl (Dilaudid) 0.5 mg PRN Q10MIN PRN IV SEVERE PAIN, Second choice; Start 07/16/16 at 07:00; Stop 07/17/16 at 04:35; Status DC Prochlorperazine Edisylate (Compazine) 5 mg PACU PRN PRN IV NAUSEA; Start 07/16 at 07:00; Stop 07/17/16 at 04:35; Status DC Cellulose 1 each STK-MED ONCE .ROUTE Last administered on 07/16/16 11:21; Start 07/16/16 at 07:14; Stop 07/16/16 at 07:15; Status DC Mannitol (Mannitol) 12.5 g STK-MED ONCE .ROUTE ; Start 07/16/16 at 07:14; Stop 07/16/16 at 07:15; Status DC Gelatin (Gelfoam Size 100) 1 each STK-MED ONCE .ROUTE Last administered on 10:22; Start 07/16/16 at 07:15; Stop 07/16/16 at 07:16; Status DC Thrombin 20,000 unit STK-MED ONCE TP Last administered on 07/16/16 10:22; Start 07/16/16 at 07:15; Stop 07/16/16 at 07:16; Status DC Bupivacaine HCl/ Epinephrine Bitart (Sensorcain-Mpf Epi 0.5%-1:[id number]) 30 ml STK -MED ONCE .ROUTE Last administered on 07/16/16 10:22; Start 07/16/16 at 07:15 ; Stop 07/16/16 at 07:16; Status DC Remifentanil HCl (Ultiva) 2 mg STK-MED ONCE IV ; Start 07/16/16 at 08:21; Stop 07/16/16 at 08:22; Status DC Glycopyrrolate (Robinul) 1 mg STK-MED ONCE .ROUTE ; Start 07/16/16 at 08:21; Stop 07/16/16 at 08:22; Status DC Desflurane (Suprane) 90 ml STK-MED ONCE IH ; Start 07/16/16 at 08:22; Stop 07/16 at 08:23; Status DC Lidocaine HCl 100 mg STK-MED ONCE .ROUTE ; Start 07/16/16 at 08:22; Stop at 08:23; Status DC Dexamethasone Sodium Phosphate 20 mg 20 mg STK-MED ONCE .ROUTE ; Start 07/16/16 at 08:22; Stop 07/16/16 at 08:23; Status DC Propofol (Diprivan) 20 ml @ As Directed STK-MED ONCE IV ; Start 07/16/16 at 08: 22; Stop 07/16/16 at 08:23; Status DC Ondansetron HCl (Zofran) 4 mg STK-MED ONCE .ROUTE ; Start 07/16/16 at 08:22; Stop 07/16/16 at 08:23; Status DC Phenylephrine HCl (Thom-Synephrine Inj) 10 mg STK-MED ONCE .ROUTE ; Start at 08:22; Stop 07/16/16 at 08:23; Status DC Rocuronium [place] (Zemuron) 50 mg STK-MED ONCE .ROUTE ; Start 07/16/16 at 08:22 ; Stop 07/16/16 at 08:23; Status DC Gadobutrol (Gadavist) 9 mmol 1X ONCE IV Last administered on 07/16/16 08:30; Start 07/16/16 at 08:30; Stop 07/16/16 at 08:31; Status DC Insulin Detemir 70 units 70 units QHS SQ Last administered on 07/16/16 19:31; Start 07/16/16 at 21:00; Stop 07/17/16 at 08:49; Status DC Propofol (Diprivan) 100 ml @ As Directed STK-MED ONCE IV ; Start 07/16/16 at 08 :33; Stop 07/16/16 at 08:34; Status DC Mannitol (Mannitol) 12.5 g STK-MED ONCE .ROUTE ; Start 07/16/16 at 08:34; Stop 07/16/16 at 08:35; Status DC Fentanyl Citrate (Fentanyl 2ml Vial) 100 mcg STK-MED ONCE .ROUTE ; Start at 08:36; Stop 07/16/16 at 08:37; Status DC Gelatin (Gelfoam Powder) 1 gm STK-MED ONCE .ROUTE Last administered on 10:22; Start 07/16/16 at 08:57; Stop 07/16/16 at 08:58; Status DC Ephedrine Sulfate 50 mg STK-MED ONCE IV ; Start 07/16/16 at 09:37; Stop at 09:38; Status DC Ephedrine Sulfate 50 mg STK-MED ONCE IV ; Start 07/16/16 at 10:30; Stop at 10:31; Status DC Glycopyrrolate (Robinul) 1 mg STK-MED ONCE .ROUTE ; Start 07/16/16 at 10:31; Stop 07/16/16 at 10:32; Status DC Thrombin 20,000 unit STK-MED ONCE TP Last administered on 07/16/16 10:53; Start 07/16/16 at 10:34; Stop 07/16/16 at 10:35; Status DC Insulin Human Regular (Novolin R Vial) 100 unit STK-MED ONCE .ROUTE ; Start at 11:19; Stop 07/16/16 at 11:20; Status DC Lidocaine HCl 100 mg STK-MED ONCE .ROUTE ; Start 07/16/16 at 11:53; Stop at 11:54; Status DC Labetalol HCl 5 mg 5 mg PRN Q15MIN PRN IV HYPERTENSION, SEE COMMENTS; Start at 12:15 Nicardipine HCl/ Sodium Chloride (Cardene/Iv Sodium Chloride 0.9% 250ml) 270 ml @ 27 mls/hr TITRATE PRN IV PER PROTOCOL; Start 07/16/16 at 12:15 Hydralazine HCl (Apresoline) 5 mg PRN Q6HRS PRN IVP TO KEEP SBP<140mmHg Last administered on 07/17/16 05:07; Start 07/16/16 at 12:15 Al Hydrox/Mg Hydrox/Simethicone (Mylanta Plus Xs) 30 ml PRN Q3HRS PRN PO HEARTBURN / GAS; Start 07/16/16 at 12:15 Calcium Carbonate/ Glycine (Tums) 500 mg PRN Q3HRS PRN PO INDIGESTION; Start at 12:15 Diphenhydramine HCl (Benadryl) 25 mg PRN Q6HRS PRN PO ITCHING; Start 07/16/16 at 12:15 Diphenhydramine HCl (Benadryl) 25 mg PRN Q6HRS PRN IV ITCHING; Start 07/16/16 at 12:15 Famotidine (Pepcid) 20 mg BID PO Last administered on 07/17/16 08:48; Start at 13:00; Stop 07/17/16 at 09:08; Status DC Sodium Chloride (Normal Saline Flush) 3 ml QSHIFT PRN IV AFTER MEDS AND BLOOD DRAWS; Start 07/16/16 at 12:15 Dextrose 12.5 gm PRN Q15MIN PRN IV SEE COMMENTS Last administered on 07/17/16 16:19; Start 07/16/16 at 12:15 Oxycodone/ Acetaminophen (Percocet 5/325) 1 tab PRN Q4HRS PRN PO MILD PAIN, 1ST CHOICE Last administered on 07/17/16 21:36; Start 07/16/16 at 12:15 Oxycodone/ Acetaminophen (Percocet 5/325) 2 tab PRN Q4HRS PRN PO MODERATE PAIN , SEVERE PAIN; Start 07/16/16 at 12:15 Senna/Docusate Sodium (Senna Plus) 1 tab BID PO Last administered on 07/17/16 21:18; Start 07/16/16 at 13:00 Docusate Sodium (Colace) 100 mg BID PO Last administered on 07/17/16 08:48; Start 07/16/16 at 13:00 Magnesium Hydroxide (Milk Of Magnesia) 2,400 mg PRN Q12HR PRN PO CONSTIPATION; Start 07/16/16 at 12:15 Ondansetron HCl (Zofran) 4 mg PRN Q6HRS PRN IV NAUESA, 1ST CHOICE; Start at 12:15 Fentanyl Citrate (Fentanyl 2ml Vial) 50 mcg PRN Q1HR PRN IV SEVERE PAIN; Start 07/16/16 at 12:15 Fentanyl Citrate (Fentanyl 2ml Vial) 25 mcg PRN Q1HR PRN IV SEVERE PAIN Last administered on 07/16/16 17:24; Start 07/16/16 at 12:15 Insulin Detemir (Levemir) 80 units QHS SQ Last administered on 07/17/16 21:28; Start 07/17/16 at 21:00; Stop 07/18/16 at 08:17; Status DC Lorazepam (Ativan) 0.5 mg PRN Q8HRS PRN PO ANXIETY / AGITATION Last administered on 07/17/16 12:26; Start 07/17/16 at 09:00 Famotidine (Pepcid) 20 mg DAILY PO ; Start 07/18/16 at 09:00 Lorazepam (Ativan) 0.5 mg 1X ONCE IV Last administered on 07/17/16 13:44; Start 07/17/16 at 13:30; Stop 07/17/16 at 13:31; Status DC Gadobutrol (Gadavist) 10 mmol 1X ONCE IV Last administered on 07/17/16 14:24; Start 07/17/16 at 14:15; Stop 07/17/16 at 14:16; Status DC Insulin Aspart (Novolog) 15 units 1X ONCE SQ Last administered on 07/17/16 18: 52; Start 07/17/16 at 16:45; Stop 07/17/16 at 17:08; Status DC Insulin Aspart (Novolog) 15 units TIDAC SQ ; Start 07/18/16 at 11:30 Insulin Detemir 70 units 70 units QHS SQ ; Start 07/18/16 at 21:00 Sodium Chloride (Iv Sodium Chloride 0.9% 1000ml Bag) 1,000 ml @ 100 mls/hr Q10H IV ; Start 07/18/16 at 08:15 Active Scripts Active Reported [insulin lispro] [gabapentin] PO DAILY Lisinopril 20 Mg Tablet 1 Tab PO DAILY Toujeo Solostar (Insulin Glargine,Hum.rec.anlog) 300 Unit/1 Ml Insuln.pen 25 Unit SQ DAILY Vitamin D2 (Ergocalciferol (Vitamin D2)) 50,000 Unit Capsule 1 Cap PO WEEKLY Norvasc (Amlodipine Besylate) 5 Mg Tablet 1 Tab PO DAILY08 Vitals/I & O Vital Sign - Last 24 Hours 07/17/16 07/17/16 07/17/16 07/17/16 08:48 08:49 09:00 09:00 Pulse 98 98 91 91 Resp 17 B/P 158/77 158/77 118/79 118/79 Pulse Ox 93 O2 Delivery Room Air 07/17/16 07/17/16 07/17/16 07/17/16 10:00 11:00 12:00 12:00 Temp 98.3 98.3 Pulse 71 75 92 Resp 14 20 18 B/P 142/66 148/65 146/70 Pulse Ox 95 95 95 O2 Delivery Room Air Room Air Room Air Room Air 07/17/16 07/17/16 07/17/16 07/17/16 13:00 16:25 20:00 21:20 Temp 97.7 98.1 97.7 98.1 Pulse 84 77 87 Resp 18 14 16 B/P 130/65 138/52 106/46 Pulse Ox 95 93 94 O2 Delivery Room Air Room Air Room Air Room Air 3/1/07/17/16 07/18/16 07/18/16 21:36 22:38 01:30 05:00 Temp 98.0 98.0 98.0 98.0 Pulse 88 83 Resp 16 16 18 18 B/P 149/66 151/76 Pulse Ox 94 94 93 92 O2 Delivery Room Air Room Air Room Air Room Air O2 Flow Rate 2.0 07/18/16 07:00 Temp 97.9 97.9 Pulse 89 Resp 16 B/P 147/62 Pulse Ox 91 O2 Delivery Room Air Intake and Output 07/17/16 07/17/16 07/18/16 15:00 23:00 07:00 Intake Total 120 ml 170 ml Output Total 420 ml 100 ml 700 ml Balance -300 ml 70 ml -700 ml SUSY TOLENTINO MD Jul 18, 2016 08:30
[2016-07-18] MEDS: IV NORMAL SALINE 1000ML BAG 1,000 ML IV SCH ×2 (08:46→18:23)
--- NOTE | 2016-07-18 13:54 | PDOC ---
Provider Note Provider Note Day 2 post op following lt frontal lobe craniotomy and resection. Post op right weakness is improving. No headaches. 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 Impression: Metastatic renal cell carcinoma with solitary left frontal lobe met now resected. Also has a symptomatic lytic lesion at superior aspect of rt tibia. Plan to see her in 2 weeks post op after wai removed. Anticipate treating resection bed and tibial met at that time. Discussed with patient and Dr Tucker. LYUDMILA Parham MD Jul 18, 2016 13:54
--- NOTE | 2016-07-18 14:18 | PDOC ---
PROGRESS NOTES Assessment Assessment Metastatic brain disease at left frontal, parietal and occipital lobes, s/p craniotomy. Extensive cerebral vasogenic edema. Multifocal osseous metastatic masses. Right breast mass. DM HTN Obesity. RECOMMENDATIONS/PLAN: She has been treated with Decadron. Keppra if has seizure. Oncology consulted. Discussed with her family at bedside on 07/17/16. PAST MEDICAL AND SURGICAL HISTORY: Please see H&P ALLERGY: Reviewed. MEDICATIONS: Refer to [facility] REVIEW OF SYSTEMS: Constitutional: No malnutrition, weight loss, cachexia. Head: No traumatic brain or head injury. Skin: No edema, or rash. Ear: No infection, tinnitus. Eyes: No vision loss, or diplopia. Nose: No bleeding or purulent discharges. Hearing: No hearing decrease. Neck: No injury. Breast: Right side mass found this time. Cardiac: HTN Pulmonary: No COPD. GI: No GI Ulcer, GI bleeding. Urinary/genital: UTI. Endocrine: Diabetes Mellitus, obesity. Skeletomuscular: Generalized weakness. Neurological: see HP. Psychiatric: Denies drug use/abuse. Otherwise, not [id number] review of systems. PHYSICAL EXAMINATION: General appearance in subacute distress. HEENT: Normocephalic and nontraumatic. Eyes, nose, ears, and throat are unremarkable. Hearing decrease. Neck is supple. No lymphadenopathy. No Crepitus. Cardiovascular: S1, S2, regular rate and rhythm. Pulmonary: Clear to auscultation bilaterally. Abdomen: Bowel sounds are positive. Extremities: No rash, lesions, or edema. No restriction of range of motion in left side. NEUROLOGICAL EXAMINATION: Awake. Sitting in chair eating. Oriented to place and person and partially to time. PERRL. EOMI. CN: no significant focal findings. Muscle tone: in right UE. Muscle strength: 3- right UE and LE, 4+ to 5 left side. DTR: 1-2, brisky at right knee. Plantar reflex: Neutral response bilaterally Gait: Unable to walk. Sensory exam: seemed mildly decreased at right side. No obvious cerebellar signs elicited. Objective Objective Vital Signs Date Time Temp Pulse Resp B/P Pulse Ox O2 Delivery O2 Flow Rate FiO2 07/18/16 11:00 98.2 80 18 144/61 93 Room Air 98.2 07/17/16 21:36 2.0 Intake and Output 07/18/16 07:00 Intake Total 290 ml Output Total 1220 ml Balance -930 ml Intake Oral 290 ml Output Urine Total 1220 ml Vitals Signs Vitals VS - Last 72 Hours, by Label Date Time Temp Pulse Resp B/P Pulse Ox O2 Delivery O2 Flow Rate FiO2 07/18/16 11:00 98.2 80 18 144/61 93 Room Air 98.2 07/18/16 08:18 89 147/62 07/18/16 08:18 89 147/62 07/18/16 08:00 Room Air 07/18/16 07:00 97.9 89 16 147/62 91 Room Air 97.9 07/18/16 05:00 98.0 83 18 151/76 92 Room Air 98.0 07/18/16 01:30 98.0 88 18 149/66 93 Room Air 98.0 07/17/16 22:38 16 94 Room Air 07/17/16 21:36 16 94 Room Air 2.0 07/17/16 21:20 98.1 87 16 106/46 94 Room Air 98.1 07/17/16 20:00 Room Air 07/17/16 16:25 97.7 77 14 138/52 93 Room Air 97.7 07/17/16 13:00 84 18 130/65 95 Room Air 07/17/16 12:00 Room Air 07/17/16 12:00 98.3 92 18 146/70 95 Room Air 98.3 07/17/16 11:00 75 20 148/65 95 Room Air 07/17/16 10:00 71 14 142/66 95 Room Air 07/17/16 09:00 91 118/79 07/17/16 09:00 91 17 118/79 93 Room Air 07/17/16 08:49 98 158/77 07/17/16 08:48 98 158/77 07/17/16 08:00 96 147/75 07/17/16 08:00 98.6 96 17 147/75 94 Room Air 98.6 07/17/16 08:00 Room Air 07/17/16 07:00 81 130/63 07/17/16 07:00 81 12 130/63 95 Room Air Laboratory Laboratory Laboratory Tests Test 07/17/16 16:15 07/17/16 16:34 07/17/16 21:06 07/18/16 02:40 Glucose (Fingerstick) 49mg/dL (70-99) 108mg/dL (70-99) 157mg/dL (70-99) White Blood Count 14.4x10^3/uL (4.0-11.0) Red Blood Count 4.98x10^6/uL (3.50-5.40) Hemoglobin 13.6g/dL (12.0-15.5) Hematocrit 41.8% (36.0-47.0) Mean Corpuscular Volume 84fL (79-100) Mean Corpuscular Hemoglobin 27pg (25-35) Mean Corpuscular Hemoglobin Concent 33g/dL (31-37) Red Cell Distribution Width 14.0% (11.5-14.5) Platelet Count 227x10^3/uL (140-400) Sodium Level 141mmol/L (136-145) Potassium Level 4.7mmol/L (3.5-5.1) Chloride Level 105mmol/L (98-107) Carbon Dioxide Level 24mmol/L (21-32) Anion Gap 12 (6-14) Blood Urea Nitrogen 54mg/dL (7-20) Creatinine 1.5mg/dL (0.6-1.0) Estimated GFR (Cockcroft-Gault) 35.7 Glucose Level 155mg/dL (70-99) Calcium Level 9.6mg/dL (8.5-10.1) Test 07/18/16 07:08 Glucose (Fingerstick) 174mg/dL (70-99) Medication Medications Current Medications Famotidine (Pepcid) 20 mg DAILY PO Last administered on 07/18/16 08:18; Start 07/18/16 at 09:00 Insulin Aspart (Novolog) 15 units 1X ONCE SQ Last administered on 07/17/16 18: 52; Start 07/17/16 at 16:45; Stop 07/17/16 at 17:08; Status DC Insulin Aspart (Novolog) 15 units TIDAC SQ Last administered on 07/18/16 12:41 ; Start 07/18/16 at 11:30 Insulin Detemir (Levemir) 80 units QHS SQ Last administered on 07/17/16 21:28; Start 07/17/16 at 21:00; Stop 07/18/16 at 08:17; Status DC Insulin Detemir 70 units 70 units QHS SQ ; Start 07/18/16 at 21:00 Sodium Chloride (Iv Sodium Chloride 0.9% 1000ml Bag) 1,000 ml @ 100 mls/hr Q10H IV Last administered on 07/18/16t 08:46; Start 07/18/16 at 08:15 Comment Review of Relevant I have reviewed the following items tiffany (where applicable) has been applied. SHANIKA PARK MD Jul 18, 2016 14:17
--- NOTE | 2016-07-18 17:05 | PDOC ---
SUBJECTIVE Subjective Late entry: Pt seen and examined 12:00 today. Denies acute changes. Right sided strength improving. Denies pain. Has been working with therapy. OBJECTIVE Objective post operative MRI with expected post surgical changes with resection of mass Vital Signs Vital Signs Date Time Temp Pulse Resp B/P Pulse Ox O2 Delivery O2 Flow Rate FiO2 07/18/16 15:00 98.6 84 16 145/72 95 Room Air 98.6 07/18/16 11:00 98.2 80 18 144/61 93 Room Air 98.2 07/18/16 08:18 89 147/62 07/18/16 08:18 89 147/62 07/18/16 08:00 Room Air 07/18/16 07:00 97.9 89 16 147/62 91 Room Air 97.9 07/18/16 05:00 98.0 83 18 151/76 92 Room Air 98.0 07/18/16 01:30 98.0 88 18 149/66 93 Room Air 98.0 07/17/16 22:38 16 94 Room Air 07/17/16 21:36 16 94 Room Air 2.0 07/17/16 21:20 98.1 87 16 106/46 94 Room Air 98.1 07/17/16 20:00 Room Air I & O Intake and Output 07/18/16 07:00 Intake Total 290 ml Output Total 1220 ml Balance -930 ml Intake Oral 290 ml Output Urine Total 1220 ml PHYSICAL EXAM Physical Exam AA, NAD, HOGAN right sided strength markedly improved compared to yesterday. sensation intact LT, incision c/d/i, flat with wai ASSESSMENT/PLAN Assessment/Plan POD 2 craniotomy with resection of brain mass -continue to increase activities/continue therapies -decadron taper over next few weeks upon d/c -if continues to be stable and otherwise meets criteria, can d/c to appropriate venue from NS standpoint Problems: COMMENT Lab Laboratory Tests Test 07/17/16 21:06 07/18/16 02:40 07/18/16 07:08 07/18/16 11:04 Glucose (Fingerstick) 157mg/dL (70-99) 174mg/dL (70-99) 208mg/dL (70-99) White Blood Count 14.4x10^3/uL (4.0-11.0) Red Blood Count 4.98x10^6/uL (3.50-5.40) Hemoglobin 13.6g/dL (12.0-15.5) Hematocrit 41.8% (36.0-47.0) Mean Corpuscular Volume 84fL (79-100) Mean Corpuscular Hemoglobin 27pg (25-35) Mean Corpuscular Hemoglobin Concent 33g/dL (31-37) Red Cell Distribution Width 14.0% (11.5-14.5) Platelet Count 227x10^3/uL (140-400) Sodium Level 141mmol/L (136-145) Potassium Level 4.7mmol/L (3.5-5.1) Chloride Level 105mmol/L (98-107) Carbon Dioxide Level 24mmol/L (21-32) Anion Gap 12 (6-14) Blood Urea Nitrogen 54mg/dL (7-20) Creatinine 1.5mg/dL (0.6-1.0) Estimated GFR (Cockcroft-Gault) 35.7 Glucose Level 155mg/dL (70-99) Calcium Level 9.6mg/dL (8.5-10.1) Test 07/18/16 16:07 Glucose (Fingerstick) 198mg/dL (70-99) ZBIGNIEW RUBY MD Jul 18, 2016 17:04
[2016-07-18] MEDS ORDERED: INSULIN DETEMIR 300 UNITS/3 ML INSULN.PEN. SQ SCH (21:00)
[2016-07-18] MEDS: LORAZEPAM 0.5 MG TABLET. PO PRN (23:41)
[2016-07-18] MEDS: hydrALAZINE 20 MG/ML VIAL. IVP PRN (23:41)
[2016-07-19 03:18] VITALS: BP 177/87
[2016-07-19 04:37] LABS: HEMATOCRIT 41.6 % (36.0-47.0); HEMOGLOBIN 13.6 g/dL (12.0-15.5); RED BLOOD COUNT 4.87 x10^6/uL (3.50-5.40); WHITE BLOOD COUNT 10.9 x10^3/uL (4.0-11.0)
[2016-07-19 04:55] LABS: CALCIUM 9.1 mg/dL (8.5-10.1); CREATININE 1.5 mg/dL (0.6-1.0); GFR 35.7; POTASSIUM 5.1 mmol/L (3.5-5.1)
[2016-07-19] MEDS: DEXAMETHASONE SOD PHOS 4 MG/ML VIAL IV SCH ×2 (05:29→11:51)
[2016-07-19] MEDS: IV NORMAL SALINE 1000ML BAG 1,000 ML IV SCH ×2 (05:29→14:48)
[2016-07-19 07:00] VITALS: BP 181/78
[2016-07-19] MEDS: GABAPENTIN 100 MG CAPSULE. PO SCH ×2 (08:51→21:53)
[2016-07-19] MEDS: FAMOTIDINE 20 MG TABLET. PO SCH (08:52)
[2016-07-19] MEDS: SENNOSIDES/DOCUSATE 8.6/50MG TABLET. PO SCH ×2 (08:52→21:53)
[2016-07-19] MEDS: DOCUSATE SODIUM 100 MG CAPSULE PO SCH ×2 (08:53→21:53)
[2016-07-19] MEDS: LOSARTAN POTASSIUM 50 MG TABLET. PO SCH (08:53)
[2016-07-19] MEDS: AMLODIPINE BESYLATE 5 MG TABLET PO SCH (08:54)
[2016-07-19] MEDS: hydrALAZINE 20 MG/ML VIAL. IVP PRN ×2 (08:55→11:51)
[2016-07-19] MEDS: INSULIN ASPART 300 UNITS/3 ML INSULN.PEN SQ SCH ×6 (08:59→17:44)
--- NOTE | 2016-07-19 09:12 | PDOC ---
SUBJECTIVE Subjective Denies acute complaints. Right side strength continues to significantly improve. Denies pain. OBJECTIVE Vital Signs Vital Signs Date Time Temp Pulse Resp B/P Pulse Ox O2 Delivery O2 Flow Rate FiO2 07/19/16 08:55 55 181/78 07/19/16 08:54 55 181/78 07/19/16 08:53 55 181/78 07/19/16 07:00 97.5 55 16 181/78 94 Room Air 97.5 07/19/16 03:18 97.9 95 18 177/87 95 Room Air 97.9 07/18/16 23:41 83 180/71 07/18/16 23:26 98.2 83 18 180/71 94 Room Air 98.2 07/18/16 20:00 Room Air 07/18/16 19:30 97.8 98 18 165/80 93 Room Air 97.8 07/18/16 15:00 98.6 84 16 145/72 95 Room Air 98.6 07/18/16 11:00 98.2 80 18 144/61 93 Room Air 98.2 I & O Intake and Output 07/19/16 07:00 Intake Total 970 ml Output Total 1100 ml Balance -130 ml Intake Oral 970 ml Output Urine Total 1100 ml # Voids 5 PHYSICAL EXAM Physical Exam AA, NAD, speech fluent, pupils equal, HOGAN RUE and RLE strength continues to improve in all modalities, sensation intact LT, incision c/d/i, flat with wai ASSESSMENT/PLAN Assessment/Plan s/p craniotomy for mass resection -appears to be recovering well thus far -continue therapies, rehab soon -steroid taper to off next few weeks -will need follow-up in two weeks with NS upon d/c -adjuvant treatments after adequate healing Problems: COMMENT Lab Laboratory Tests Test 07/18/16 11:04 07/18/16 16:07 07/18/16 21:13 07/19/16 04:15 Glucose (Fingerstick) 208mg/dL (70-99) 198mg/dL (70-99) 213mg/dL (70-99) White Blood Count 10.9x10^3/uL (4.0-11.0) Red Blood Count 4.87x10^6/uL (3.50-5.40) Hemoglobin 13.6g/dL (12.0-15.5) Hematocrit 41.6% (36.0-47.0) Mean Corpuscular Volume 85fL (79-100) Mean Corpuscular Hemoglobin 28pg (25-35) Mean Corpuscular Hemoglobin Concent 33g/dL (31-37) Red Cell Distribution Width 14.0% (11.5-14.5) Platelet Count 209x10^3/uL (140-400) Sodium Level 142mmol/L (136-145) Potassium Level 5.1mmol/L (3.5-5.1) Chloride Level 107mmol/L (98-107) Carbon Dioxide Level 23mmol/L (21-32) Anion Gap 12 (6-14) Blood Urea Nitrogen 53mg/dL (7-20) Creatinine 1.5mg/dL (0.6-1.0) Estimated GFR (Cockcroft-Gault) 35.7 Glucose Level 186mg/dL (70-99) Calcium Level 9.1mg/dL (8.5-10.1) Test 07/19/16 07:31 Glucose (Fingerstick) 181mg/dL (70-99) ZBIGNIEW RUBY MD Jul 19, 2016 09:12
--- NOTE | 2016-07-19 09:22 | PDOC ---
PROGRESS NOTES Subjective Subjective Patient denies pain. Anxious for discharge. Objective Objective Vital Signs Date Time Temp Pulse Resp B/P Pulse Ox O2 Delivery O2 Flow Rate FiO2 07/19/16 07:00 97.5 55 16 181/78 94 Room Air 97.5 07/17/16 21:36 2.0 Intake and Output 07/19/16 07:00 Intake Total 970 ml Output Total 1100 ml Balance -130 ml Intake Oral 970 ml Output Urine Total 1100 ml # Voids 5 Physical Exam Abdomen: Normal bowel sounds, Soft, No tenderness Heart: Regular rate Extremities: No edema General: Alert, Oriented X3, No acute distress Lungs: Clear to auscultation Assessment Assessment Problems Medical Problems: (1) Bone lesion Status: Acute (2) Brain mass Status: Acute (3) Multiple falls Status: Acute (4) Right knee pain Status: Acute (5) Right wrist pain Status: Acute Surgical Problems: (1) Status post craniotomy Status: Acute Plan Plan of Care 1. Metastatic renal cell cancer, POD #3 resection of brain met - stable, strength improving. Continue therapies, hope to transfer to acute rehab soon. No anemia on CBC. 2. prerenal azotemia - lab stable but not improved from yesterday. Continue IVF , patient encouraged to drink more water, states she doesn't feel thirsty. 3. HTN - BP elevated, increase Losartan and follow. 4. DM2 - glucose elevated again, Levemir and Novolog increased. Comment Review of Relevant I have reviewed the following items tiffany (where applicable) has been applied. Labs Laboratory Tests Test 07/17/16 12:12 07/17/16 16:15 07/17/16 16:34 07/17/16 21:06 Glucose (Fingerstick) 214mg/dL (70-99) 49mg/dL (70-99) 108mg/dL (70-99) 157mg/dL (70-99) Test 07/18/16 02:40 07/18/16 07:08 07/18/16 11:04 07/18/16 16:07 White Blood Count 14.4x10^3/uL (4.0-11.0) Red Blood Count 4.98x10^6/uL (3.50-5.40) Hemoglobin 13.6g/dL (12.0-15.5) Hematocrit 41.8% (36.0-47.0) Mean Corpuscular Volume 84fL (79-100) Mean Corpuscular Hemoglobin 27pg (25-35) Mean Corpuscular Hemoglobin Concent 33g/dL (31-37) Red Cell Distribution Width 14.0% (11.5-14.5) Platelet Count 227x10^3/uL (140-400) Sodium Level 141mmol/L (136-145) Potassium Level 4.7mmol/L (3.5-5.1) Chloride Level 105mmol/L (98-107) Carbon Dioxide Level 24mmol/L (21-32) Anion Gap 12 (6-14) Blood Urea Nitrogen 54mg/dL (7-20) Creatinine 1.5mg/dL (0.6-1.0) Estimated GFR (Cockcroft-Gault) 35.7 Glucose Level 155mg/dL (70-99) Calcium Level 9.6mg/dL (8.5-10.1) Glucose (Fingerstick) 174mg/dL (70-99) 208mg/dL (70-99) 198mg/dL (70-99) Test 07/18/16 21:13 07/19/16 04:15 07/19/16 07:31 Glucose (Fingerstick) 213mg/dL (70-99) 181mg/dL (70-99) White Blood Count 10.9x10^3/uL (4.0-11.0) Red Blood Count 4.87x10^6/uL (3.50-5.40) Hemoglobin 13.6g/dL (12.0-15.5) Hematocrit 41.6% (36.0-47.0) Mean Corpuscular Volume 85fL (79-100) Mean Corpuscular Hemoglobin 28pg (25-35) Mean Corpuscular Hemoglobin Concent 33g/dL (31-37) Red Cell Distribution Width 14.0% (11.5-14.5) Platelet Count 209x10^3/uL (140-400) Sodium Level 142mmol/L (136-145) Potassium Level 5.1mmol/L (3.5-5.1) Chloride Level 107mmol/L (98-107) Carbon Dioxide Level 23mmol/L (21-32) Anion Gap 12 (6-14) Blood Urea Nitrogen 53mg/dL (7-20) Creatinine 1.5mg/dL (0.6-1.0) Estimated GFR (Cockcroft-Gault) 35.7 Glucose Level 186mg/dL (70-99) Calcium Level 9.1mg/dL (8.5-10.1) Laboratory Tests Test 07/18/16 11:04 07/18/16 16:07 07/18/16 21:13 07/19/16 04:15 Glucose (Fingerstick) 208mg/dL (70-99) 198mg/dL (70-99) 213mg/dL (70-99) White Blood Count 10.9x10^3/uL (4.0-11.0) Red Blood Count 4.87x10^6/uL (3.50-5.40) Hemoglobin 13.6g/dL (12.0-15.5) Hematocrit 41.6% (36.0-47.0) Mean Corpuscular Volume 85fL (79-100) Mean Corpuscular Hemoglobin 28pg (25-35) Mean Corpuscular Hemoglobin Concent 33g/dL (31-37) Red Cell Distribution Width 14.0% (11.5-14.5) Platelet Count 209x10^3/uL (140-400) Sodium Level 142mmol/L (136-145) Potassium Level 5.1mmol/L (3.5-5.1) Chloride Level 107mmol/L (98-107) Carbon Dioxide Level 23mmol/L (21-32) Anion Gap 12 (6-14) Blood Urea Nitrogen 53mg/dL (7-20) Creatinine 1.5mg/dL (0.6-1.0) Estimated GFR (Cockcroft-Gault) 35.7 Glucose Level 186mg/dL (70-99) Calcium Level 9.1mg/dL (8.5-10.1) Test 07/19/16 07:31 Glucose (Fingerstick) 181mg/dL (70-99) Medications Current Medications Ondansetron HCl (Zofran) 4 mg PRN Q8HRS PRN IV NAUSEA/VOMITING; Start 07/12/16 at 23:45; Stop 07/13/16 at 23:44; Status DC Morphine Sulfate 4 mg PRN Q2HR PRN IV PAIN; Start 07/12/16 at 23:45; Stop 07/13 at 23:44; Status DC Acetaminophen (Tylenol) 650 mg PRN Q4HRS PRN PO FEVER Last administered on 07/13 00:55; Start 07/12/16 at 23:45; Stop 07/13/16 at 23:44; Status DC Amlodipine Besylate (Norvasc) 5 mg DAILY08 PO Last administered on 07/18/16 08: 18; Start 07/13/16 at 10:00 Lisinopril (Prinivil) 20 mg DAILY PO Last administered on 07/14/16 08:53; Start 07/13/16 at 10:00; Stop 07/14/16 at 13:24; Status DC Insulin Detemir (Levemir) 20 units DAILY SQ ; Start 07/13/16 at 10:00; Stop at 19:09; Status DC Lorazepam (Ativan) 0.25 mg 1X ONCE PO Last administered on 07/13/16 12:38; Start 07/13/16 at 12:30; Stop 07/13/16 at 12:31; Status DC Lorazepam (Ativan) 0.25 mg 1X ONCE IV Last administered on 07/13/16 14:10; Start 07/13/16 at 13:30; Stop 07/13/16 at 13:31; Status DC Iohexol (Omnipaque 240 Mg/ml) 50 ml 1X ONCE PO Last administered on 07/13/16 14:14; Start 07/13/16 at 13:45; Stop 07/13/16 at 13:46; Status DC Info (Do NOT chart on this entry -- for MONITORING) 1 each PRN DAILY PRN MC SEE COMMENTS; Start 07/13/16 at 13:45; Stop 07/15/16 at 13:44; Status DC Gadobutrol (Gadavist) 10 mmol 1X ONCE IV Last administered on 07/13/16 15:04 ; Start 07/13/16 at 15:00; Stop 07/13/16 at 17:10; Status DC Insulin Aspart (Novolog) 0-9 UNITS TIDWMEALS SQ Last administered on 07/18/16 17:41; Start 07/13/16 at 17:00 Dextrose 12.5 gm PRN Q15MIN PRN IV SEE COMMENTS; Start 07/13/16 at 16:00; Status Cancel Gabapentin (Neurontin) 100 mg BID PO Last administered on 07/18/16 21:12; Start 07/13/16 at 21:00 Insulin Aspart (Novolog) 10 units TIDAC SQ Last administered on 07/14/16 12:00 ; Start 07/13/16 at 16:30; Stop 07/14/16 at 13:24; Status DC Insulin Detemir (Levemir) 20 units QHS SQ Last administered on 07/13/16 22:16 ; Start 07/13/16 at 21:00; Stop 07/14/16 at 13:24; Status DC Lorazepam (Ativan) 0.5 mg 1X ONCE PO ; Start 07/14/16 at 11:15; Stop 07/14/16 at 11:16; Status DC Dexamethasone Sodium Phosphate (Decadron) 4 mg Q6HRS IV Last administered on 05:29; Start 07/14/16 at 12:00 Insulin Aspart (Novolog) 20 units TIDAC SQ Last administered on 07/15/16 08:51 ; Start 07/14/16 at 16:30; Stop 07/15/16 at 09:12; Status DC Insulin Detemir (Levemir) 40 units QHS SQ Last administered on 07/14/16 21:49 ; Start 07/14/16 at 21:00; Stop 07/15/16 at 09:12; Status DC Losartan Potassium (Cozaar) 50 mg DAILY PO Last administered on 07/18/16 08:18 ; Start 07/14/16 at 14:00 Insulin Aspart (Novolog) 30 units TIDAC SQ Last administered on 07/18/16 07:30 ; Start 07/15/16 at 12:00; Stop 07/18/16 at 08:17; Status DC Insulin Detemir 60 units 60 units QHS SQ Last administered on 07/15/16 21:44; Start 07/15/16 at 21:00; Stop 07/16/16 at 08:32; Status DC Cefazolin Sodium 2 gm/Sodium Chloride 100 ml @ 200 mls/hr 1X PREOP IV ; Start 07/15/16 at 10:00; Status UNV Cefazolin Sodium/ Dextrose 50 ml @ 100 mls/hr 1X PREOP PRN IV PRIOR TO PROCEDURE Last administered on 07/16/16 10:00; Start 07/15/16 at 06:00; Stop at 05:59; Status DC Bacitracin/Sodium Chloride (Iv Sodium Chloride 0.9% 1000ml Bag) 1,000 ml @ 1, 000 mls/hr 1X PERIOP ONCE IRR Last administered on 07/16/16 10:22; Start at 06:00; Stop 07/16/16 at 06:59; Status DC Ondansetron HCl (Zofran) 4 mg PRN Q6HRS PRN IV Nausea; Start 07/16/16 at 07:00 ; Stop 07/17/16 at 04:35; Status DC Fentanyl Citrate (Fentanyl 2ml Vial) 25 mcg PRN Q5MIN PRN IV MILD PAIN Last administered on 07/16/16 21:17; Start 07/16/16 at 07:00; Stop 07/17/16 at 04:31 ; Status DC Fentanyl Citrate (Fentanyl 2ml Vial) 50 mcg PRN Q5MIN PRN IV MODERATE PAIN Last administered on 07/16/16 13:08; Start 07/16/16 at 07:00; Stop 07/17/16 at 04:31; Status DC Morphine Sulfate 1 mg 1 mg PRN Q10MIN PRN IV SEVERE PAIN; Start 07/16/16 at 07: 00; Stop 07/17/16 at 04:33; Status DC Lactated Ringer's (Iv Lactated Ringers) 1,000 ml @ 30 mls/hr Q24H IV ; Start at 07:00; Stop 07/16/16 at 18:59; Status DC Lidocaine HCl 2 ml 1X PRN PRN ID IV START; Start 07/16/16 at 07:00; Stop at 06:59; Status DC Hydromorphone HCl (Dilaudid) 0.5 mg PRN Q10MIN PRN IV SEVERE PAIN, Second choice; Start 07/16/16 at 07:00; Stop 07/17/16 at 04:35; Status DC Prochlorperazine Edisylate (Compazine) 5 mg PACU PRN PRN IV NAUSEA; Start 07/16 at 07:00; Stop 07/17/16 at 04:35; Status DC Cellulose 1 each STK-MED ONCE .ROUTE Last administered on 07/16/16 11:21; Start 07/16/16 at 07:14; Stop 07/16/16 at 07:15; Status DC Mannitol (Mannitol) 12.5 g STK-MED ONCE .ROUTE ; Start 07/16/16 at 07:14; Stop 07/16/16 at 07:15; Status DC Gelatin (Gelfoam Size 100) 1 each STK-MED ONCE .ROUTE Last administered on 10:22; Start 07/16/16 at 07:15; Stop 07/16/16 at 07:16; Status DC Thrombin 20,000 unit STK-MED ONCE TP Last administered on 07/16/16 10:22; Start 07/16/16 at 07:15; Stop 07/16/16 at 07:16; Status DC Bupivacaine HCl/ Epinephrine Bitart (Sensorcain-Mpf Epi 0.5%-[id number]) 30 ml STK -MED ONCE .ROUTE Last administered on 07/16/16 10:22; Start 07/16/16 at 07:15 ; Stop 07/16/16 at 07:16; Status DC Remifentanil HCl (Ultiva) 2 mg STK-MED ONCE IV ; Start 07/16/16 at 08:21; Stop 07/16/16 at 08:22; Status DC Glycopyrrolate (Robinul) 1 mg STK-MED ONCE .ROUTE ; Start 07/16/16 at 08:21; Stop 07/16/16 at 08:22; Status DC Desflurane (Suprane) 90 ml STK-MED ONCE IH ; Start 07/16/16 at 08:22; Stop 07/16 at 08:23; Status DC Lidocaine HCl 100 mg STK-MED ONCE .ROUTE ; Start 07/16/16 at 08:22; Stop at 08:23; Status DC Dexamethasone Sodium Phosphate 20 mg 20 mg STK-MED ONCE .ROUTE ; Start 07/16/16 at 08:22; Stop 07/16/16 at 08:23; Status DC Propofol (Diprivan) 20 ml @ As Directed STK-MED ONCE IV ; Start 07/16/16 at 08: 22; Stop 07/16/16 at 08:23; Status DC Ondansetron HCl (Zofran) 4 mg STK-MED ONCE .ROUTE ; Start 07/16/16 at 08:22; Stop 07/16/16 at 08:23; Status DC Phenylephrine HCl (Thom-Synephrine Inj) 10 mg STK-MED ONCE .ROUTE ; Start at 08:22; Stop 07/16/16 at 08:23; Status DC Rocuronium [place] (Zemuron) 50 mg STK-MED ONCE .ROUTE ; Start 07/16/16 at 08:22 ; Stop 07/16/16 at 08:23; Status DC Gadobutrol (Gadavist) 9 mmol 1X ONCE IV Last administered on 07/16/16 08:30; Start 07/16/16 at 08:30; Stop 07/16/16 at 08:31; Status DC Insulin Detemir 70 units 70 units QHS SQ Last administered on 07/16/16 19:31; Start 07/16/16 at 21:00; Stop 07/17/16 at 08:49; Status DC Propofol (Diprivan) 100 ml @ As Directed STK-MED ONCE IV ; Start 07/16/16 at 08 :33; Stop 07/16/16 at 08:34; Status DC Mannitol (Mannitol) 12.5 g STK-MED ONCE .ROUTE ; Start 07/16/16 at 08:34; Stop 07/16/16 at 08:35; Status DC Fentanyl Citrate (Fentanyl 2ml Vial) 100 mcg STK-MED ONCE .ROUTE ; Start at 08:36; Stop 07/16/16 at 08:37; Status DC Gelatin (Gelfoam Powder) 1 gm STK-MED ONCE .ROUTE Last administered on 10:22; Start 07/16/16 at 08:57; Stop 07/16/16 at 08:58; Status DC Ephedrine Sulfate 50 mg STK-MED ONCE IV ; Start 07/16/16 at 09:37; Stop at 09:38; Status DC Ephedrine Sulfate 50 mg STK-MED ONCE IV ; Start 07/16/16 at 10:30; Stop at 10:31; Status DC Glycopyrrolate (Robinul) 1 mg STK-MED ONCE .ROUTE ; Start 07/16/16 at 10:31; Stop 07/16/16 at 10:32; Status DC Thrombin 20,000 unit STK-MED ONCE TP Last administered on 07/16/16 10:53; Start 07/16/16 at 10:34; Stop 07/16/16 at 10:35; Status DC Insulin Human Regular (Novolin R Vial) 100 unit STK-MED ONCE .ROUTE ; Start at 11:19; Stop 07/16/16 at 11:20; Status DC Lidocaine HCl 100 mg STK-MED ONCE .ROUTE ; Start 07/16/16 at 11:53; Stop at 11:54; Status DC Labetalol HCl 5 mg 5 mg PRN Q15MIN PRN IV HYPERTENSION, SEE COMMENTS; Start at 12:15 Nicardipine HCl/ Sodium Chloride (Cardene/Iv Sodium Chloride 0.9% 250ml) 270 ml @ 27 mls/hr TITRATE PRN IV PER PROTOCOL; Start 07/16/16 at 12:15 Hydralazine HCl (Apresoline) 5 mg PRN Q6HRS PRN IVP TO KEEP SBP<140mmHg Last administered on 07/18/16 23:41; Start 07/16/16 at 12:15 Al Hydrox/Mg Hydrox/Simethicone (Mylanta Plus Xs) 30 ml PRN Q3HRS PRN PO HEARTBURN / GAS; Start 07/16/16 at 12:15 Calcium Carbonate/ Glycine (Tums) 500 mg PRN Q3HRS PRN PO INDIGESTION; Start at 12:15 Diphenhydramine HCl (Benadryl) 25 mg PRN Q6HRS PRN PO ITCHING; Start 07/16/16 at 12:15 Diphenhydramine HCl (Benadryl) 25 mg PRN Q6HRS PRN IV ITCHING; Start 07/16/16 at 12:15 Famotidine (Pepcid) 20 mg BID PO Last administered on 07/17/16 08:48; Start at 13:00; Stop 07/17/16 at 09:08; Status DC Sodium Chloride (Normal Saline Flush) 3 ml QSHIFT PRN IV AFTER MEDS AND BLOOD DRAWS; Start 07/16/16 at 12:15 Dextrose 12.5 gm PRN Q15MIN PRN IV SEE COMMENTS Last administered on 07/17/16 16:19; Start 07/16/16 at 12:15 Oxycodone/ Acetaminophen (Percocet 5/325) 1 tab PRN Q4HRS PRN PO MILD PAIN, 1ST CHOICE Last administered on 07/17/16 21:36; Start 07/16/16 at 12:15 Oxycodone/ Acetaminophen (Percocet 5/325) 2 tab PRN Q4HRS PRN PO MODERATE PAIN , SEVERE PAIN; Start 07/16/16 at 12:15 Senna/Docusate Sodium (Senna Plus) 1 tab BID PO Last administered on 07/18/16 21:13; Start 07/16/16 at 13:00 Docusate Sodium (Colace) 100 mg BID PO Last administered on 07/18/16 08:17; Start 07/16/16 at 13:00 Magnesium Hydroxide (Milk Of Magnesia) 2,400 mg PRN Q12HR PRN PO CONSTIPATION; Start 07/16/16 at 12:15 Ondansetron HCl (Zofran) 4 mg PRN Q6HRS PRN IV NAUESA, 1ST CHOICE; Start at 12:15 Fentanyl Citrate (Fentanyl 2ml Vial) 50 mcg PRN Q1HR PRN IV SEVERE PAIN; Start 07/16/16 at 12:15 Fentanyl Citrate (Fentanyl 2ml Vial) 25 mcg PRN Q1HR PRN IV SEVERE PAIN Last administered on 07/16/16 17:24; Start 07/16/16 at 12:15 Insulin Detemir (Levemir) 80 units QHS SQ Last administered on 07/17/16 21:28; Start 07/17/16 at 21:00; Stop 07/18/16 at 08:17; Status DC Lorazepam (Ativan) 0.5 mg PRN Q8HRS PRN PO ANXIETY / AGITATION Last administered on 07/18/16 23:41; Start 07/17/16 at 09:00 Famotidine (Pepcid) 20 mg DAILY PO Last administered on 07/18/16 08:18; Start 07/18/16 at 09:00 Lorazepam (Ativan) 0.5 mg 1X ONCE IV Last administered on 07/17/16 13:44; Start 07/17/16 at 13:30; Stop 07/17/16 at 13:31; Status DC Gadobutrol (Gadavist) 10 mmol 1X ONCE IV Last administered on 07/17/16 14:24; Start 07/17/16 at 14:15; Stop 07/17/16 at 14:16; Status DC Insulin Aspart (Novolog) 15 units 1X ONCE SQ Last administered on 07/17/16 18: 52; Start 07/17/16 at 16:45; Stop 07/17/16 at 17:08; Status DC Insulin Aspart (Novolog) 15 units TIDAC SQ Last administered on 07/18/16 16:30 ; Start 07/18/16 at 11:30 Insulin Detemir 70 units 70 units QHS SQ Last administered on 07/18/16 21:18; Start 07/18/16 at 21:00 Sodium Chloride (Iv Sodium Chloride 0.9% 1000ml Bag) 1,000 ml @ 100 mls/hr Q10H IV Last administered on 07/19/16 05:29; Start 07/18/16 at 08:15 Active Scripts Active Reported [insulin lispro] [gabapentin] PO DAILY Lisinopril 20 Mg Tablet 1 Tab PO DAILY Touleeroy Solostar (Insulin Glargine,Hum.rec.anlog) 300 Unit/1 Ml Insuln.pen 25 Unit SQ DAILY Vitamin D2 (Ergocalciferol (Vitamin D2)) 50,000 Unit Capsule 1 Cap PO WEEKLY Norvasc (Amlodipine Besylate) 5 Mg Tablet 1 Tab PO DAILY08 Vitals/I & O Vital Sign - Last 24 Hours 07/18/16 07/18/16 07/18/16 07/18/16 11:00 15:00 19:30 20:00 Temp 98.2 98.6 97.8 98.2 98.6 97.8 Pulse 80 84 98 Resp 18 16 18 B/P 144/61 145/72 165/80 Pulse Ox 93 95 93 O2 Delivery Room Air Room Air Room Air Room Air 07/18/16 07/18/16 07/19/1607/19/17 23:26 23:41 03:18 07:00 Temp 98.2 97.9 97.5 98.2 97.9 97.5 Pulse 83 83 95 55 Resp 18 18 16 B/P 180/71 180/71 177/87 181/78 Pulse Ox 94 95 94 O2 Delivery Room Air Room Air Room Air Intake and Output 07/18/16 07/18/16 07/19/16 15:00 23:00 07:00 Intake Total 970 ml Output Total 1100 ml Balance -130 ml SUSY TOLENTINO MD Jul 19, 2016 09:22
[2016-07-19] MEDS ORDERED: LOSARTAN POTASSIUM 50 MG TABLET. PO ONE (09:30)
--- NOTE | 2016-07-19 10:42 | PDOC ---
Subjective: Subjective: Onc f/u- Stage IV RCC Pt recovering from surgery. Still with right sided weakness, struggling with eating this AM. Seems resistant to going to rehab on DC. No headaches, vision changes, SOB, abd pain. Objective: Vital Signs: Vital Signs Date Time Temp Pulse Resp B/P Pulse Ox O2 Delivery O2 Flow Rate FiO2 07/19/16 08:55 55 181/78 07/19/16 07:00 97.5 16 94 Room Air 97.5 Physical Exam: Heart: Regular rate General: Alert, Oriented X3, Cooperative, No acute distress Lungs: Other (no resp distress) Musculoskeletal: Other (Still with residual RUE weakness) Neuro: Other (decreased muscle tone RUE, struggling with coordination of eating this AM) Psych/Mental Status: Mental status NL, Mood NL Labs/Imaging: Path reviewed showing RCC and rad onc plans noted for radiation to resection bed and tibia Assessment/Plan A/P: 1. H/o [id number] Stage 1, clear cell RCC s/p left nephrectomy in 2012 lost to f/u now with stage IV RCC with brain mass s/p resection, bone, and bilateral lung masses. 2. 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 Lost to f/u; declined adjuvant chemo. 3. Right sided weakness 4. Hip pain related to osseous mets. Noted plans for radiation to resxn bed and tibia. Pt seems hesitant to have RT and transfer to rehab on DC. Has h/o poor f/u. Plan: - Will schedule 1 mth f/u with me in clinic to discuss starting systemic therapy after RT completed. Please call with any further questions. Dr. Mclaughlin is covering this weekend if any urgent issues arise. GABRIEL BRAMBILA DO Jul 19, 2016 10:42
[2016-07-19 11:00] VITALS: BP 140/67
--- NOTE | 2016-07-19 13:22 | PDOC ---
PROGRESS NOTES Assessment Assessment Metastatic brain disease at left frontal, parietal and occipital lobes, s/p craniotomy. Extensive cerebral vasogenic edema. Multifocal osseous metastatic masses. Right breast mass. DM HTN Obesity. RECOMMENDATIONS/PLAN: She has been treated with Decadron. Keppra if has seizure. Oncology consulted. Discussed with her family at bedside on 07/17/16. PAST MEDICAL AND SURGICAL HISTORY: Please see H&P ALLERGY: Reviewed. MEDICATIONS: Refer to [facility] REVIEW OF SYSTEMS: Constitutional: No malnutrition, weight loss, cachexia. Head: No traumatic brain or head injury. Skin: No edema, or rash. Ear: No infection, tinnitus. Eyes: No vision loss, or diplopia. Nose: No bleeding or purulent discharges. Hearing: No hearing decrease. Neck: No injury. Breast: Right side mass found this time. Cardiac: HTN Pulmonary: No COPD. GI: No GI Ulcer, GI bleeding. Urinary/genital: UTI. Endocrine: Diabetes Mellitus, obesity. Skeletomuscular: Generalized weakness. Neurological: see HP. Psychiatric: Denies drug use/abuse. Otherwise, not [id number] review of systems. PHYSICAL EXAMINATION: General appearance in subacute distress. HEENT: Normocephalic and nontraumatic. Eyes, nose, ears, and throat are unremarkable. Hearing decrease. Neck is supple. No lymphadenopathy. No Crepitus. Cardiovascular: S1, S2, regular rate and rhythm. Pulmonary: Clear to auscultation bilaterally. Abdomen: Bowel sounds are positive. Extremities: No rash, lesions, or edema. No restriction of range of motion in left side. NEUROLOGICAL EXAMINATION: Awake. Sitting in chair stating doing fine. Oriented to place and person and partially to time. PERRL. EOMI. CN: no significant focal findings. Muscle tone: in right UE. Muscle strength: 3+ right UE and LE, 4+ to 5 left side. DTR: 2 UE, brisky at knee. Plantar reflex: Neutral response bilaterally Gait: Unable to walk. Sensory exam: seemed mildly decreased at right side. No obvious cerebellar signs elicited. Objective Objective Vital Signs Date Time Temp Pulse Resp B/P Pulse Ox O2 Delivery O2 Flow Rate FiO2 07/19/16 11:51 87 140/67 07/19/16 11:00 98.0 18 97 Room Air 98.0 Intake and Output 07/19/16 07:00 Intake Total 970 ml Output Total 1100 ml Balance -130 ml Intake Oral 970 ml Output Urine Total 1100 ml # Voids 5 Vitals Signs Vitals VS - Last 72 Hours, by Label Date Time Temp Pulse Resp B/P Pulse Ox O2 Delivery O2 Flow Rate FiO2 07/19/16 11:51 87 140/67 07/19/16 11:00 98.0 87 18 140/67 97 Room Air 98.0 07/19/16 09:30 55 181/78 07/19/16 08:55 55 181/78 07/19/16 08:54 55 181/78 07/19/16 08:53 55 181/78 07/19/16 07:00 97.5 55 16 181/78 94 Room Air 97.5 07/19/16 03:18 97.9 95 18 177/87 95 Room Air 97.9 07/18/16 23:41 83 180/71 07/18/16 23:26 98.2 83 18 180/71 94 Room Air 98.2 07/18/16 20:00 Room Air 07/18/16 19:30 97.8 98 18 165/80 93 Room Air 97.8 07/18/16 15:00 98.6 84 16 145/72 95 Room Air 98.6 07/18/16 11:00 98.2 80 18 144/61 93 Room Air 98.2 07/18/16 08:18 89 147/62 07/18/16 08:18 89 147/62 07/18/16 08:00 Room Air 07/18/16 07:00 97.9 89 16 147/62 91 Room Air 97.9 Laboratory Laboratory Laboratory Tests Test 07/18/16 16:07 07/18/16 21:13 07/19/16 04:15 07/19/16 07:31 Glucose (Fingerstick) 198mg/dL (70-99) 213mg/dL (70-99) 181mg/dL (70-99) White Blood Count 10.9x10^3/uL (4.0-11.0) Red Blood Count 4.87x10^6/uL (3.50-5.40) Hemoglobin 13.6g/dL (12.0-15.5) Hematocrit 41.6% (36.0-47.0) Mean Corpuscular Volume 85fL (79-100) Mean Corpuscular Hemoglobin 28pg (25-35) Mean Corpuscular Hemoglobin Concent 33g/dL (31-37) Red Cell Distribution Width 14.0% (11.5-14.5) Platelet Count 209x10^3/uL (140-400) Sodium Level 142mmol/L (136-145) Potassium Level 5.1mmol/L (3.5-5.1) Chloride Level 107mmol/L (98-107) Carbon Dioxide Level 23mmol/L (21-32) Anion Gap 12 (6-14) Blood Urea Nitrogen 53mg/dL (7-20) Creatinine 1.5mg/dL (0.6-1.0) Estimated GFR (Cockcroft-Gault) 35.7 Glucose Level 186mg/dL (70-99) Calcium Level 9.1mg/dL (8.5-10.1) Test 07/19/16 11:04 Glucose (Fingerstick) 262mg/dL (70-99) Medication Medications Current Medications Insulin Aspart (Novolog) 20 units TIDAC SQ Last administered on 07/19/16 11:58 ; Start 07/19/16 at 11:30 Insulin Detemir (Levemir) 70 units QHS SQ Last administered on 07/18/16 21:18; Start 07/18/16 at 21:00; Stop 07/19/16 at 09:14; Status DC Insulin Detemir (Levemir) 80 units QHS SQ ; Start 07/19/16 at 21:00 Losartan Potassium (Cozaar) 50 mg 1X ONCE PO Last administered on 07/19/16 09: 30; Start 07/19/16 at 09:30; Stop 07/19/16 at 09:31; Status DC Losartan Potassium (Cozaar) 100 mg DAILY PO ; Start 07/20/16 at 09:00 Comment Review of Relevant I have reviewed the following items tiffany (where applicable) has been applied. SHANIKA PARK MD Jul 19, 2016 13:22
[2016-07-19] MEDS ORDERED: DEXAMETHASONE SOD PHOS 4 MG/ML VIAL PO SCH (14:00)
[2016-07-19] MEDS: DEXAMETHASONE 4 MG TABLET PO SCH ×2 (14:48→21:53)
[2016-07-19 15:00] VITALS: BP 154/74
[2016-07-19 19:00] VITALS: BP 139/70
[2016-07-19] MEDS: INSULIN DETEMIR 300 UNITS/3 ML INSULN.PEN. SQ SCH (21:57)
[2016-07-19 23:00] VITALS: BP 124/57
[2016-07-20] VITALS (8 sets, daily range): BP systolic 126–154; BP diastolic 61–82
[2016-07-20] MEDS: IV NORMAL SALINE 1000ML BAG 1,000 ML IV SCH ×3 (01:45→21:18)
[2016-07-20] MEDS: hydrALAZINE 20 MG/ML VIAL. IVP PRN ×2 (02:53→21:16)
[2016-07-20] MEDS: LABETALOL 20 MG/4 ML DISP.SYRIN. IV PRN (03:37)
[2016-07-20] MEDS: OXYCODONE/APAP 5/325 TABLET. PO PRN (04:08)
[2016-07-20 05:25] LABS: CALCIUM 9.2 mg/dL (8.5-10.1); CREATININE 1.3 mg/dL (0.6-1.0); GFR 42.1; POTASSIUM 4.5 mmol/L (3.5-5.1)
[2016-07-20] MEDS: DEXAMETHASONE 4 MG TABLET PO SCH ×3 (06:38→21:16)
[2016-07-20] MEDS: INSULIN ASPART 300 UNITS/3 ML INSULN.PEN SQ SCH ×6 (08:00→18:19)
[2016-07-20] MEDS: SENNOSIDES/DOCUSATE 8.6/50MG TABLET. PO SCH ×2 (08:07→21:16)
[2016-07-20] MEDS: GABAPENTIN 100 MG CAPSULE. PO SCH ×2 (08:07→21:16)
[2016-07-20] MEDS: FAMOTIDINE 20 MG TABLET. PO SCH (08:08)
[2016-07-20] MEDS: AMLODIPINE BESYLATE 5 MG TABLET PO SCH (08:08)
[2016-07-20] MEDS: DOCUSATE SODIUM 100 MG CAPSULE PO SCH ×2 (08:09→21:16)
[2016-07-20] MEDS: LOSARTAN POTASSIUM 50 MG TABLET. PO SCH (08:09)
[2016-07-20] MEDS ORDERED: CALC200T23 PO (09:51)
[2016-07-20] MEDS ORDERED: GABA-585 PO (09:51)
[2016-07-20] MEDS ORDERED: DOCU-27 PO (09:51)
[2016-07-20] MEDS ORDERED: LORA0.5T96 PO (09:51)
[2016-07-20] MEDS ORDERED: FAMO20TA5 PO (09:51)
[2016-07-20] MEDS ORDERED: LOSA50TA2 PO (09:51)
[2016-07-20] MEDS ORDERED: DEXA4TAB PO (09:51)
[2016-07-20] MEDS ORDERED: OXYC1TAB7 PO (09:51)
[2016-07-20] MEDS ORDERED: INSU100I27 SQ (09:51)
[2016-07-20] MEDS ORDERED: DIPH25CA58 PO (09:51)
[2016-07-20] MEDS ORDERED: INSU100I17 SQ (09:51)
--- NOTE | 2016-07-20 10:36 | PDOC ---
SUBJECTIVE Subjective Denies acute complaints. Right strength continues to improve. OBJECTIVE Vital Signs Vital Signs Date Time Temp Pulse Resp B/P Pulse Ox O2 Delivery O2 Flow Rate FiO2 07/20/16 08:09 84 138/61 07/20/16 08:08 84 138/61 07/20/16 08:00 Room Air 07/20/16 07:00 98.1 84 20 138/61 95 Room Air 98.1 07/20/16 05:08 20 94 Room Air 07/20/16 04:16 77 130/65 07/20/16 04:08 20 Room Air 07/20/16 03:37 81 143/74 07/20/16 03:15 143/68 07/20/16 03:00 98.1 80 18 154/82 94 Room Air 98.1 07/20/16 02:53 80 154/82 07/19/16 23:00 98.0 79 18 124/57 97 Room Air 98.0 07/19/16 20:05 Room Air 07/19/16 19:00 97.6 96 20 139/70 98 Room Air 97.6 07/19/16 15:00 97.7 62 18 154/74 95 Room Air 97.7 07/19/16 11:51 87 140/67 07/19/16 11:00 98.0 87 18 140/67 97 Room Air 98.0 I & O Intake and Output 07/20/16 07:00 Intake Total 4095 ml Output Total 2450 ml Balance 1645 ml Intake Oral 1695 ml IV Total 1700 ml Other 700 ml Output Urine Total 2450 ml PHYSICAL EXAM Physical Exam AAOx4, NAD, PERRL, EOMI, HOGAN, RUE 4/5 RLE 3-4/5, sensation intact LT, incision c /d/i with wai ASSESSMENT/PLAN Assessment/Plan s/p craniotomy, resection of brain mass -neurologically stable/improving -to go to rehab today -decadron taper to off next couple weeks -do not soak, scrub, or submerge incision -avoid strenuous activity or lifting over 10lbs -follow up with NS 2 weeks for staple removal [phone] Problems: COMMENT Lab Laboratory Tests Test 07/19/16 11:04 07/19/16 16:07 07/19/16 20:41 07/20/16 04:14 Glucose (Fingerstick) 262mg/dL (70-99) 154mg/dL (70-99) 192mg/dL (70-99) Sodium Level 140mmol/L (136-145) Potassium Level 4.5mmol/L (3.5-5.1) Chloride Level 108mmol/L (98-107) Carbon Dioxide Level 21mmol/L (21-32) Anion Gap 11 (6-14) Blood Urea Nitrogen 48mg/dL (7-20) Creatinine 1.3mg/dL (0.6-1.0) Estimated GFR (Cockcroft-Gault) 42.1 Glucose Level 128mg/dL (70-99) Calcium Level 9.2mg/dL (8.5-10.1) ZBIGNIEW RUBY MD Jul 20, 2016 10:36
--- NOTE | 2016-07-20 14:04 | PDOC ---
PROGRESS NOTES Assessment Assessment Metastatic brain disease at left frontal, parietal and occipital lobes, s/p craniotomy. Extensive cerebral vasogenic edema. Multifocal osseous metastatic masses. Right breast mass. DM HTN Obesity. RECOMMENDATIONS/PLAN: She has been treated with Decadron per neurosurgery. Keelenara if has seizure. Oncology consulted. Discussed with her family at bedside on 07/20/16. PAST MEDICAL AND SURGICAL HISTORY: Please see H&P ALLERGY: Reviewed. MEDICATIONS: Refer to [facility] REVIEW OF SYSTEMS: Constitutional: No malnutrition, weight loss, cachexia. Head: No traumatic brain or head injury. Skin: No edema, or rash. Ear: No infection, tinnitus. Eyes: No vision loss, or diplopia. Nose: No bleeding or purulent discharges. Hearing: No hearing decrease. Neck: No injury. Breast: Right side mass found this time. Cardiac: HTN Pulmonary: No COPD. GI: No GI Ulcer, GI bleeding. Urinary/genital: UTI. Endocrine: Diabetes Mellitus, obesity. Skeletomuscular: Generalized weakness. Neurological: see HP. Psychiatric: Denies drug use/abuse. Otherwise, not [id number] review of systems. PHYSICAL EXAMINATION: General appearance in subacute distress. HEENT: Normocephalic and nontraumatic. Eyes, nose, ears, and throat are unremarkable. Hearing decrease. Neck is supple. No lymphadenopathy. No Crepitus. Cardiovascular: S1, S2, regular rate and rhythm. Pulmonary: Clear to auscultation bilaterally. Abdomen: Bowel sounds are positive. Extremities: No rash, lesions, or edema. No restriction of range of motion in left side. NEUROLOGICAL EXAMINATION: Awake. Oriented to time, place and person. PERRL. EOMI. CN: no significant focal findings. Muscle tone: in right UE. Muscle strength: 4 right UE and LE, 4+ to 5 left side. DTR: 2 UE, brisky at knee. Plantar reflex: Neutral response bilaterally Gait: not exam in bed. Sensory exam: seemed mildly decreased at right side. No obvious cerebellar signs elicited. Objective Objective Vital Signs Date Time Temp Pulse Resp B/P Pulse Ox O2 Delivery O2 Flow Rate FiO2 07/20/16 11:00 97.6 83 20 126/66 96 Room Air 97.6 Intake and Output 07/20/16 07:00 Intake Total 4095 ml Output Total 2450 ml Balance 1645 ml Intake Oral 1695 ml IV Total 1700 ml Other 700 ml Output Urine Total 2450 ml Vitals Signs Vitals VS - Last 72 Hours, by Label Date Time Temp Pulse Resp B/P Pulse Ox O2 Delivery O2 Flow Rate FiO2 07/20/16 11:00 97.6 83 20 126/66 96 Room Air 97.6 07/20/16 08:09 84 138/61 07/20/16 08:08 84 138/61 07/20/16 08:00 Room Air 07/20/16 07:00 98.1 84 20 138/61 95 Room Air 98.1 07/20/16 05:08 20 94 Room Air 07/20/16 04:16 77 130/65 07/20/16 04:08 20 Room Air 07/20/16 03:37 81 143/74 07/20/16 03:15 143/68 07/20/16 03:00 98.1 80 18 154/82 94 Room Air 98.1 07/20/16 02:53 80 154/82 07/19/16 23:00 98.0 79 18 124/57 97 Room Air 98.0 07/19/16 20:05 Room Air 07/19/16 19:00 97.6 96 20 139/70 98 Room Air 97.6 07/19/16 15:00 97.7 62 18 154/74 95 Room Air 97.7 07/19/16 11:51 87 140/67 07/19/16 11:00 98.0 87 18 140/67 97 Room Air 98.0 07/19/16 09:30 55 181/78 07/19/16 08:55 55 181/78 07/19/16 08:54 55 181/78 07/19/16 08:53 55 181/78 07/19/16 08:00 Room Air 07/19/16 07:00 97.5 55 16 181/78 94 Room Air 97.5 Laboratory Laboratory Laboratory Tests Test 07/19/16 16:07 07/19/16 20:41 07/20/16 04:14 07/20/16 11:56 Glucose (Fingerstick) 154mg/dL (70-99) 192mg/dL (70-99) 146mg/dL (70-99) Sodium Level 140mmol/L (136-145) Potassium Level 4.5mmol/L (3.5-5.1) Chloride Level 108mmol/L (98-107) Carbon Dioxide Level 21mmol/L (21-32) Anion Gap 11 (6-14) Blood Urea Nitrogen 48mg/dL (7-20) Creatinine 1.3mg/dL (0.6-1.0) Estimated GFR (Cockcroft-Gault) 42.1 Glucose Level 128mg/dL (70-99) Calcium Level 9.2mg/dL (8.5-10.1) Medication Medications Current Medications Insulin Detemir (Levemir) 80 units QHS SQ Last administered on 07/19/16 21:57; Start 07/19/16 at 21:00 Losartan Potassium (Cozaar) 100 mg DAILY PO Last administered on 07/20/16 08:09 ; Start 07/20/16 at 09:00 Comment Review of Relevant I have reviewed the following items tiffany (where applicable) has been applied. SHANIKA PARK MD Jul 20, 2016 14:04
--- NOTE | 2016-07-20 19:17 | DS ---
DATE OF DISCHARGE: 07/20/2016 ADMITTING DIAGNOSES: 1. Metastatic cancer to the brain, discovered by frequent falls. 2. Type 2 diabetes. 3. Hypertension. 4. Chronic kidney disease stage 3. HISTORY OF PRESENT ILLNESS AND HOSPITAL COURSE: The patient is a 56-year-old female, who has known renal cell cancer as well as colon cancer, both treated in the past, but has failed to comply with followup, came to the Emergency Room with frequent falls at home and right leg pain. CAT scan revealed evidence of metastatic disease with a large metastatic mass causing impingement, requiring neurosurgical evaluation. She underwent Hematology/Oncology and Radiation Oncology evaluation as well as Neurosurgery evaluation. She was taken to Surgery for debulking of brain mass and had excellent results with improvement of symptoms. She continued to be debilitated and unsafe to walk. Therefore, plans to discharge to rehab were made. She had minimal pain and was improved dramatically with her renal function. The patient's blood sugars were elevated due to steroids for cerebral edema, but this was controlled with insulin. Again, the patient was now stable for transfer to rehab and to follow up with Radiation Oncology in 2 weeks and Heme/Oncology in 2 to 3 weeks [address] as [address] Patino once she has been discharged from acute rehab. JAMES HAILE MD DR: EL/nikkie JOB#: [id number] / [id number]
[2016-07-20] MEDS: INSULIN DETEMIR 300 UNITS/3 ML INSULN.PEN. SQ SCH (21:20)
[2016-07-21] VITALS (7 sets, daily range): BP systolic 123–156; BP diastolic 60–73
[2016-07-21] MEDS: LABETALOL 20 MG/4 ML DISP.SYRIN. IV PRN (00:42)
[2016-07-21] MEDS: DEXAMETHASONE 4 MG TABLET PO SCH ×3 (05:44→22:15)
[2016-07-21] MEDS: IV NORMAL SALINE 1000ML BAG 1,000 ML IV SCH (05:58)
[2016-07-21] MEDS: INSULIN ASPART 300 UNITS/3 ML INSULN.PEN SQ SCH ×6 (08:00→17:20)
--- NOTE | 2016-07-21 08:54 | PDOC ---
PROGRESS NOTES Subjective Subjective Patient feeling ok D/C held up do to insurance issues. C/O constipation. Objective Objective Vital Signs Date Time Temp Pulse Resp B/P Pulse Ox O2 Delivery O2 Flow Rate FiO2 07/21/16 07:00 98.1 77 18 139/73 94 Room Air 98.1 07/17/16 21:36 2.0 Intake and Output 07/21/16 07:00 Intake Total 2968 ml Output Total 900 ml Balance 2068 ml Intake Oral 1040 ml IV Total 1928 ml Output Urine Total 900 ml # Voids 3 Physical Exam Abdomen: Normal bowel sounds Heart: Regular rate Extremities: No clubbing General: Alert Lungs: Clear to auscultation Assessment Assessment Problems Medical Problems: (1) Bone lesion Status: Acute (2) Brain mass Status: Acute (3) Multiple falls Status: Acute (4) Right knee pain Status: Acute (5) Right wrist pain Status: Acute Surgical Problems: (1) Status post craniotomy Status: Acute 1. Metastatic cancer to the brain, discovered by frequent falls. 2. Type 2 diabetes. 3. Hypertension. 4. Chronic kidney disease stage 3. 5. Constipation Plan Plan of Care Mag-citrate 1 bottle today D/C IVF to rehab in AM Comment Review of Relevant I have reviewed the following items tiffany (where applicable) has been applied. Labs Laboratory Tests Test 07/19/16 11:04 07/19/16 16:07 07/19/16 20:41 07/20/16 04:14 Glucose (Fingerstick) 262mg/dL (70-99) 154mg/dL (70-99) 192mg/dL (70-99) Sodium Level 140mmol/L (136-145) Potassium Level 4.5mmol/L (3.5-5.1) Chloride Level 108mmol/L (98-107) Carbon Dioxide Level 21mmol/L (21-32) Anion Gap 11 (6-14) Blood Urea Nitrogen 48mg/dL (7-20) Creatinine 1.3mg/dL (0.6-1.0) Estimated GFR (Cockcroft-Gault) 42.1 Glucose Level 128mg/dL (70-99) Calcium Level 9.2mg/dL (8.5-10.1) Test 07/20/16 11:56 07/20/16 21:08 07/21/16 07:14 Glucose (Fingerstick) 146mg/dL (70-99) 214mg/dL (70-99) 129mg/dL (70-99) Laboratory Tests Test 07/20/16 11:56 07/20/16 21:08 07/21/16 07:14 Glucose (Fingerstick) 146mg/dL (70-99) 214mg/dL (70-99) 129mg/dL (70-99) Medications Current Medications Ondansetron HCl (Zofran) 4 mg PRN Q8HRS PRN IV NAUSEA/VOMITING; Start 07/12/16 at 23:45; Stop 07/13/16 at 23:44; Status DC Morphine Sulfate 4 mg PRN Q2HR PRN IV PAIN; Start 07/12/16 at 23:45; Stop 07/13 at 23:44; Status DC Acetaminophen (Tylenol) 650 mg PRN Q4HRS PRN PO FEVER Last administered on 07/13 00:55; Start 07/12/16 at 23:45; Stop 07/13/16 at 23:44; Status DC Amlodipine Besylate (Norvasc) 5 mg DAILY08 PO Last administered on 07/20/16 08: 08; Start 07/13/16 at 10:00 Lisinopril (Prinivil) 20 mg DAILY PO Last administered on 07/14/16 08:53; Start 07/13/16 at 10:00; Stop 07/14/16 at 13:24; Status DC Insulin Detemir (Levemir) 20 units DAILY SQ ; Start 07/13/16 at 10:00; Stop at 19:09; Status DC Lorazepam (Ativan) 0.25 mg 1X ONCE PO Last administered on 07/13/16 12:38; Start 07/13/16 at 12:30; Stop 07/13/16 at 12:31; Status DC Lorazepam (Ativan) 0.25 mg 1X ONCE IV Last administered on 07/13/16 14:10; Start 07/13/16 at 13:30; Stop 07/13/16 at 13:31; Status DC Iohexol (Omnipaque 240 Mg/ml) 50 ml 1X ONCE PO Last administered on 07/13/16 14:14; Start 07/13/16 at 13:45; Stop 07/13/16 at 13:46; Status DC Info (Do NOT chart on this entry -- for MONITORING) 1 each PRN DAILY PRN MC SEE COMMENTS; Start 07/13/16 at 13:45; Stop 07/15/16 at 13:44; Status DC Gadobutrol (Gadavist) 10 mmol 1X ONCE IV Last administered on 07/13/16 15:04 ; Start 07/13/16 at 15:00; Stop 07/13/16 at 17:10; Status DC Insulin Aspart (Novolog) 0-9 UNITS TIDWMEALS SQ Last administered on 07/19/16 17:44; Start 07/13/16 at 17:00 Dextrose 12.5 gm PRN Q15MIN PRN IV SEE COMMENTS; Start 07/13/16 at 16:00; Status Cancel Gabapentin (Neurontin) 100 mg BID PO Last administered on 07/20/16 21:16; Start 07/13/16 at 21:00 Insulin Aspart (Novolog) 10 units TIDAC SQ Last administered on 07/14/16 12:00 ; Start 07/13/16 at 16:30; Stop 07/14/16 at 13:24; Status DC Insulin Detemir (Levemir) 20 units QHS SQ Last administered on 07/13/16 22:16 ; Start 07/13/16 at 21:00; Stop 07/14/16 at 13:24; Status DC Lorazepam (Ativan) 0.5 mg 1X ONCE PO ; Start 07/14/16 at 11:15; Stop 07/14/16 at 11:16; Status DC Dexamethasone Sodium Phosphate (Decadron) 4 mg Q6HRS IV Last administered on 11:51; Start 07/14/16 at 12:00; Stop 07/19/16 at 13:48; Status DC Insulin Aspart (Novolog) 20 units TIDAC SQ Last administered on 07/15/16 08:51 ; Start 07/14/16 at 16:30; Stop 07/15/16 at 09:12; Status DC Insulin Detemir (Levemir) 40 units QHS SQ Last administered on 07/14/16 21:49 ; Start 07/14/16 at 21:00; Stop 07/15/16 at 09:12; Status DC Losartan Potassium (Cozaar) 50 mg DAILY PO Last administered on 07/19/16 08:53 ; Start 07/14/16 at 14:00; Stop 07/19/16 at 09:14; Status DC Insulin Aspart (Novolog) 30 units TIDAC SQ Last administered on 07/18/16 07:30 ; Start 07/15/16 at 12:00; Stop 07/18/16 at 08:17; Status DC Insulin Detemir 60 units 60 units QHS SQ Last administered on 07/15/16 21:44; Start 07/15/16 at 21:00; Stop 07/16/16 at 08:32; Status DC Cefazolin Sodium 2 gm/Sodium Chloride 100 ml @ 200 mls/hr 1X PREOP IV ; Start 07/15/16 at 10:00; Status UNV Cefazolin Sodium/ Dextrose 50 ml @ 100 mls/hr 1X PREOP PRN IV PRIOR TO PROCEDURE Last administered on 07/16/16 10:00; Start 07/15/16 at 06:00; Stop at 05:59; Status DC Bacitracin/Sodium Chloride (Iv Sodium Chloride 0.9% 1000ml Bag) 1,000 ml @ 1, 000 mls/hr 1X PERIOP ONCE IRR Last administered on 07/16/16 10:22; Start at 06:00; Stop 07/16/16 at 06:59; Status DC Ondansetron HCl (Zofran) 4 mg PRN Q6HRS PRN IV Nausea; Start 07/16/16 at 07:00 ; Stop 07/17/16 at 04:35; Status DC Fentanyl Citrate (Fentanyl 2ml Vial) 25 mcg PRN Q5MIN PRN IV MILD PAIN Last administered on 07/16/16 21:17; Start 07/16/16 at 07:00; Stop 07/17/16 at 04:31 ; Status DC Fentanyl Citrate (Fentanyl 2ml Vial) 50 mcg PRN Q5MIN PRN IV MODERATE PAIN Last administered on 07/16/16 13:08; Start 07/16/16 at 07:00; Stop 07/17/16 at 04:31; Status DC Morphine Sulfate 1 mg 1 mg PRN Q10MIN PRN IV SEVERE PAIN; Start 07/16/16 at 07: 00; Stop 07/17/16 at 04:33; Status DC Lactated Ringer's (Iv Lactated Ringers) 1,000 ml @ 30 mls/hr Q24H IV ; Start at 07:00; Stop 07/16/16 at 18:59; Status DC Lidocaine HCl 2 ml 1X PRN PRN ID IV START; Start 07/16/16 at 07:00; Stop at 06:59; Status DC Hydromorphone HCl (Dilaudid) 0.5 mg PRN Q10MIN PRN IV SEVERE PAIN, Second choice; Start 07/16/16 at 07:00; Stop 07/17/16 at 04:35; Status DC Prochlorperazine Edisylate (Compazine) 5 mg PACU PRN PRN IV NAUSEA; Start 07/16 at 07:00; Stop 07/17/16 at 04:35; Status DC Cellulose 1 each STK-MED ONCE .ROUTE Last administered on 07/16/16 11:21; Start 07/16/16 at 07:14; Stop 07/16/16 at 07:15; Status DC Mannitol (Mannitol) 12.5 g STK-MED ONCE .ROUTE ; Start 07/16/16 at 07:14; Stop 07/16/16 at 07:15; Status DC Gelatin (Gelfoam Size 100) 1 each STK-MED ONCE .ROUTE Last administered on 10:22; Start 07/16/16 at 07:15; Stop 07/16/16 at 07:16; Status DC Thrombin 20,000 unit STK-MED ONCE TP Last administered on 07/16/16 10:22; Start 07/16/16 at 07:15; Stop 07/16/16 at 07:16; Status DC Bupivacaine HCl/ Epinephrine Bitart (Sensorcain-Mpf Epi 0.5%-1:[id number]) 30 ml STK -MED ONCE .ROUTE Last administered on 07/16/16 10:22; Start 07/16/16 at 07:15 ; Stop 07/16/16 at 07:16; Status DC Remifentanil HCl (Ultiva) 2 mg STK-MED ONCE IV ; Start 07/16/16 at 08:21; Stop 07/16/16 at 08:22; Status DC Glycopyrrolate (Robinul) 1 mg STK-MED ONCE .ROUTE ; Start 07/16/16 at 08:21; Stop 07/16/16 at 08:22; Status DC Desflurane (Suprane) 90 ml STK-MED ONCE IH ; Start 07/16/16 at 08:22; Stop 07/16 at 08:23; Status DC Lidocaine HCl 100 mg STK-MED ONCE .ROUTE ; Start 07/16/16 at 08:22; Stop at 08:23; Status DC Dexamethasone Sodium Phosphate 20 mg 20 mg STK-MED ONCE .ROUTE ; Start 07/16/16 at 08:22; Stop 07/16/16 at 08:23; Status DC Propofol (Diprivan) 20 ml @ As Directed STK-MED ONCE IV ; Start 07/16/16 at 08: 22; Stop 07/16/16 at 08:23; Status DC Ondansetron HCl (Zofran) 4 mg STK-MED ONCE .ROUTE ; Start 07/16/16 at 08:22; Stop 07/16/16 at 08:23; Status DC Phenylephrine HCl (Thom-Synephrine Inj) 10 mg STK-MED ONCE .ROUTE ; Start at 08:22; Stop 07/16/16 at 08:23; Status DC Rocuronium Putnam (Zemuron) 50 mg STK-MED ONCE .ROUTE ; Start 07/16/16 at 08:22 ; Stop 07/16/16 at 08:23; Status DC Gadobutrol (Gadavist) 9 mmol 1X ONCE IV Last administered on 07/16/16 08:30; Start 07/16/16 at 08:30; Stop 07/16/16 at 08:31; Status DC Insulin Detemir 70 units 70 units QHS SQ Last administered on 07/16/16t 19:31; Start 07/16/16 at 21:00; Stop 07/17/16 at 08:49; Status DC Propofol (Diprivan) 100 ml @ As Directed STK-MED ONCE IV ; Start 07/16/16 at 08 :33; Stop 07/16/16 at 08:34; Status DC Mannitol (Mannitol) 12.5 g STK-MED ONCE .ROUTE ; Start 07/16/16 at 08:34; Stop 07/16/16 at 08:35; Status DC Fentanyl Citrate (Fentanyl 2ml Vial) 100 mcg STK-MED ONCE .ROUTE ; Start at 08:36; Stop 07/16/16 at 08:37; Status DC Gelatin (Gelfoam Powder) 1 gm STK-MED ONCE .ROUTE Last administered on 10:22; Start 07/16/16 at 08:57; Stop 07/16/16 at 08:58; Status DC Ephedrine Sulfate 50 mg STK-MED ONCE IV ; Start 07/16/16 at 09:37; Stop at 09:38; Status DC Ephedrine Sulfate 50 mg STK-MED ONCE IV ; Start 07/16/16 at 10:30; Stop at 10:31; Status DC Glycopyrrolate (Robinul) 1 mg STK-MED ONCE .ROUTE ; Start 07/16/16 at 10:31; Stop 07/16/16 at 10:32; Status DC Thrombin 20,000 unit STK-MED ONCE TP Last administered on 07/16/16 10:53; Start 07/16/16 at 10:34; Stop 07/16/16 at 10:35; Status DC Insulin Human Regular (Novolin R Vial) 100 unit STK-MED ONCE .ROUTE ; Start at 11:19; Stop 07/16/16 at 11:20; Status DC Lidocaine HCl 100 mg STK-MED ONCE .ROUTE ; Start 07/16/16 at 11:53; Stop at 11:54; Status DC Labetalol HCl 5 mg 5 mg PRN Q15MIN PRN IV HYPERTENSION, SEE COMMENTS Last administered on 07/21/16 00:42; Start 07/16/16 at 12:15 Nicardipine HCl/ Sodium Chloride (Cardene/Iv Sodium Chloride 0.9% 250ml) 270 ml @ 27 mls/hr TITRATE PRN IV PER PROTOCOL; Start 07/16/16 at 12:15; Stop at 09:14; Status DC Hydralazine HCl (Apresoline) 5 mg PRN Q6HRS PRN IVP TO KEEP SBP<140mmHg Last administered on 07/20/16 21:16; Start 07/16/16 at 12:15 Al Hydrox/Mg Hydrox/Simethicone (Mylanta Plus Xs) 30 ml PRN Q3HRS PRN PO HEARTBURN / GAS; Start 07/16/16 at 12:15 Calcium Carbonate/ Glycine (Tums) 500 mg PRN Q3HRS PRN PO INDIGESTION; Start at 12:15 Diphenhydramine HCl (Benadryl) 25 mg PRN Q6HRS PRN PO ITCHING; Start 07/16/16 at 12:15 Diphenhydramine HCl (Benadryl) 25 mg PRN Q6HRS PRN IV ITCHING; Start 07/16/16 at 12:15 Famotidine (Pepcid) 20 mg BID PO Last administered on 07/17/16 08:48; Start at 13:00; Stop 07/17/16 at 09:08; Status DC Sodium Chloride (Normal Saline Flush) 3 ml QSHIFT PRN IV AFTER MEDS AND BLOOD DRAWS; Start 07/16/16 at 12:15 Dextrose 12.5 gm PRN Q15MIN PRN IV SEE COMMENTS Last administered on 07/17/16 16:19; Start 07/16/16 at 12:15 Oxycodone/ Acetaminophen (Percocet 5/325) 1 tab PRN Q4HRS PRN PO MILD PAIN, 1ST CHOICE Last administered on 07/20/16 04:08; Start 07/16/16 at 12:15 Oxycodone/ Acetaminophen (Percocet 5/325) 2 tab PRN Q4HRS PRN PO MODERATE PAIN , SEVERE PAIN; Start 07/16/16 at 12:15 Senna/Docusate Sodium (Senna Plus) 1 tab BID PO Last administered on 07/20/16 21:16; Start 07/16/16 at 13:00 Docusate Sodium (Colace) 100 mg BID PO Last administered on 07/20/16 21:16; Start 07/16/16 at 13:00 Magnesium Hydroxide (Milk Of Magnesia) 2,400 mg PRN Q12HR PRN PO CONSTIPATION; Start 07/16/16 at 12:15 Ondansetron HCl (Zofran) 4 mg PRN Q6HRS PRN IV NAUESA, 1ST CHOICE; Start at 12:15 Fentanyl Citrate (Fentanyl 2ml Vial) 50 mcg PRN Q1HR PRN IV SEVERE PAIN; Start 07/16/16 at 12:15; Stop 07/19/16 at 09:14; Status DC Fentanyl Citrate (Fentanyl 2ml Vial) 25 mcg PRN Q1HR PRN IV SEVERE PAIN Last administered on 07/16/16 17:24; Start 07/16/16 at 12:15; Stop 07/19/16 at 09:14 ; Status DC Insulin Detemir (Levemir) 80 units QHS SQ Last administered on 07/17/16 21:28; Start 07/17/16 at 21:00; Stop 07/18/16 at 08:17; Status DC Lorazepam (Ativan) 0.5 mg PRN Q8HRS PRN PO ANXIETY / AGITATION Last administered on 07/18/16 23:41; Start 07/17/16 at 09:00 Famotidine (Pepcid) 20 mg DAILY PO Last administered on 07/20/16 08:08; Start 07/18/16 at 09:00 Lorazepam (Ativan) 0.5 mg 1X ONCE IV Last administered on 07/17/16 13:44; Start 07/17/16 at 13:30; Stop 07/17/16 at 13:31; Status DC Gadobutrol (Gadavist) 10 mmol 1X ONCE IV Last administered on 07/17/16 14:24; Start 07/17/16 at 14:15; Stop 07/17/16 at 14:16; Status DC Insulin Aspart (Novolog) 15 units 1X ONCE SQ Last administered on 07/17/16 18: 52; Start 07/17/16 at 16:45; Stop 07/17/16 at 17:08; Status DC Insulin Aspart (Novolog) 15 units TIDAC SQ Last administered on 07/19/16 08:59 ; Start 07/18/16 at 11:30; Stop 07/19/16 at 09:14; Status DC Insulin Detemir 70 units 70 units QHS SQ Last administered on 07/18/16 21:18; Start 07/18/16 at 21:00; Stop 07/19/16 at 09:14; Status DC Sodium Chloride (Iv Sodium Chloride 0.9% 1000ml Bag) 1,000 ml @ 100 mls/hr Q10H IV Last administered on 07/20/16 21:18; Start 07/18/16 at 08:15 Insulin Aspart (Novolog) 20 units TIDAC SQ Last administered on 07/20/16 18:19 ; Start 07/19/16 at 11:30 Insulin Detemir (Levemir) 80 units QHS SQ Last administered on 07/20/16 21:20; Start 07/19/16 at 21:00 Losartan Potassium (Cozaar) 100 mg DAILY PO Last administered on 07/20/16 08:09 ; Start 07/20/16 at 09:00 Losartan Potassium (Cozaar) 50 mg 1X ONCE PO Last administered on 07/19/16 09: 30; Start 07/19/16 at 09:30; Stop 07/19/16 at 09:31; Status DC Dexamethasone Sodium Phosphate (Decadron) 4 mg Q8HRS PO ; Start 07/19/16 at 14:00 ; Stop 07/19/16 at 14:00; Status DC Dexamethasone (Decadron) 4 mg Q8HRS PO Last administered on 07/21/16 05:44; Start 07/19/16 at 14:00 Active Scripts Active Reported [insulin lispro] [gabapentin] PO DAILY Lisinopril 20 Mg Tablet 1 Tab PO DAILY Toujeo Solostar (Insulin Glargine,Hum.rec.anlog) 300 Unit/1 Ml Insuln.pen 25 Unit SQ DAILY Vitamin D2 (Ergocalciferol (Vitamin D2)) 50,000 Unit Capsule 1 Cap PO WEEKLY Norvasc (Amlodipine Besylate) 5 Mg Tablet 1 Tab PO DAILY08 Vitals/I & O Vital Sign - Last 24 Hours 07/20/16 07/20/16 07/20/16 07/20/16 11:00 15:00 19:25 20:00 Temp 97.6 97.8 97.7 97.6 97.8 97.7 Pulse 83 78 76 Resp 20 20 20 B/P 126/66 139/66 147/62 Pulse Ox 96 97 95 O2 Delivery Room Air Room Air Room Air Room Air 07/20/16 07/20/16 07/21/16 07/21/16 21:16 23:48 00:38 00:42 Temp 97.6 97.6 Pulse 76 89 76 76 Resp 16 B/P 147/62 152/74 140/67 140/67 Pulse Ox 96 O2 Delivery Room Air 07/21/16 07/21/16 03:05 07:00 Temp 98.0 98.1 98.0 98.1 Pulse 95 77 Resp 16 18 B/P 132/60 139/73 Pulse Ox 95 94 O2 Delivery Room Air Room Air Intake and Output 07/20/16 07/20/16 07/21/16 15:00 23:00 07:00 Intake Total 240 ml 2728 ml Output Total 900 ml Balance 240 ml 1828 ml JAMES HAILE MD Jul 21, 2016 08:54
[2016-07-21] MEDS ORDERED: MAGNESIUM CITRATE 296 ML SOLUTION. PO ONE (09:00)
[2016-07-21] MEDS: DOCUSATE SODIUM 100 MG CAPSULE PO SCH ×2 (09:09→20:32)
[2016-07-21] MEDS: FAMOTIDINE 20 MG TABLET. PO SCH (09:09)
[2016-07-21] MEDS: SENNOSIDES/DOCUSATE 8.6/50MG TABLET. PO SCH ×2 (09:09→20:32)
[2016-07-21] MEDS: GABAPENTIN 100 MG CAPSULE. PO SCH ×2 (09:09→22:15)
[2016-07-21] MEDS: LOSARTAN POTASSIUM 50 MG TABLET. PO SCH (09:10)
[2016-07-21] MEDS: AMLODIPINE BESYLATE 5 MG TABLET PO SCH (09:10)
--- NOTE | 2016-07-21 13:30 | PDOC ---
PROGRESS NOTES Assessment Assessment Metastatic brain disease at left frontal, parietal and occipital lobes, s/p craniotomy. Extensive cerebral vasogenic edema. Multifocal osseous metastatic masses. Right breast mass. DM HTN Obesity. RECOMMENDATIONS/PLAN: She has been treated with Decadron per Neurosurgery. Keelenara if has seizure. Oncology consulted. Discussed with her family at bedside on 07/20/16. PAST MEDICAL AND SURGICAL HISTORY: Please see H&P ALLERGY: Reviewed. MEDICATIONS: Refer to MAR REVIEW OF SYSTEMS: Constitutional: No malnutrition, weight loss, cachexia. Head: No traumatic brain or head injury. Skin: No edema, or rash. Ear: No infection, tinnitus. Eyes: No vision loss, or diplopia. Nose: No bleeding or purulent discharges. Hearing: No hearing decrease. Neck: No injury. Breast: Right side mass found this time. Cardiac: HTN Pulmonary: No COPD. GI: No GI Ulcer, GI bleeding. Urinary/genital: UTI. Endocrine: Diabetes Mellitus, obesity. Skeletomuscular: Generalized weakness. Neurological: see HP. Psychiatric: Denies drug use/abuse. Otherwise, not [id number] review of systems. PHYSICAL EXAMINATION: General appearance in subacute distress. HEENT: Normocephalic and nontraumatic. Eyes, nose, ears, and throat are unremarkable. Hearing decrease. Neck is supple. No lymphadenopathy. No Crepitus. Cardiovascular: S1, S2, regular rate and rhythm. Pulmonary: Clear to auscultation bilaterally. Abdomen: Bowel sounds are positive. Extremities: No rash, lesions, or edema. No restriction of range of motion in left side. NEUROLOGICAL EXAMINATION: Awake. Oriented to time, place and person. PERRL. EOMI. CN: no significant focal findings. Muscle tone: in right UE. Muscle strength: 5- right UE and LE, 5 left side. DTR: 2 UE, brisky at knee. Plantar reflex: Neutral response bilaterally Gait: not exam in bed. Sensory exam: seemed mildly decreased at right side. No obvious cerebellar signs elicited. Objective Objective Vital Signs Date Time Temp Pulse Resp B/P Pulse Ox O2 Delivery O2 Flow Rate FiO2 07/21/16 11:00 98.0 91 16 156/68 99 Room Air 98.0 Intake and Output 07/21/16 07:00 Intake Total 2968 ml Output Total 900 ml Balance 2068 ml Intake Oral 1040 ml IV Total 1928 ml Output Urine Total 900 ml # Voids 3 Vitals Signs Vitals VS - Last 72 Hours, by Label Date Time Temp Pulse Resp B/P Pulse Ox O2 Delivery O2 Flow Rate FiO2 07/21/16 11:00 98.0 91 16 156/68 99 Room Air 98.0 07/21/16 09:10 77 139/73 07/21/16 09:10 77 139/73 07/21/16 07:00 98.1 77 18 139/73 94 Room Air 98.1 07/21/16 03:05 98.0 95 16 132/60 95 Room Air 98.0 07/21/16 00:42 76 140/67 07/21/16 00:38 76 140/67 07/20/16 23:48 97.6 89 16 152/74 96 Room Air 97.6 07/20/16 21:16 76 147/62 07/20/16 20:00 Room Air 07/20/16 19:25 97.7 76 20 147/62 95 Room Air 97.7 07/20/16 15:00 97.8 78 20 139/66 97 Room Air 97.8 07/20/16 11:00 97.6 83 20 126/66 96 Room Air 97.6 07/20/16 08:09 84 138/61 07/20/16 08:08 84 138/61 07/20/16 08:00 Room Air 07/20/16 07:00 98.1 84 20 138/61 95 Room Air 98.1 Laboratory Laboratory Laboratory Tests Test 07/20/16 21:08 07/21/16 07:14 07/21/16 11:37 Glucose (Fingerstick) 214mg/dL (70-99) 129mg/dL (70-99) 235mg/dL (70-99) Medication Medications Current Medications Magnesium Citrate (Citroma) 296 ml 1X ONCE PO Last administered on 07/21/16t 09 :10; Start 07/21/16 at 09:00; Stop 07/21/16 at 09:01; Status DC Comment Review of Relevant I have reviewed the following items tiffany (where applicable) has been applied. SHANIKA PARK MD Jul 21, 2016 13:30
[2016-07-21] MEDS: OXYCODONE/APAP 5/325 TABLET. PO PRN (22:16)
[2016-07-21] MEDS: INSULIN DETEMIR 300 UNITS/3 ML INSULN.PEN. SQ SCH (22:23)
[2016-07-22 03:35] VITALS: BP 133/64
[2016-07-22] MEDS: DEXAMETHASONE 4 MG TABLET PO SCH ×3 (06:24→21:32)
[2016-07-22 07:00] VITALS: BP 121/70
[2016-07-22] MEDS: GABAPENTIN 100 MG CAPSULE. PO SCH ×2 (08:41→21:32)
[2016-07-22] MEDS: DOCUSATE SODIUM 100 MG CAPSULE PO SCH ×2 (08:41→21:32)
[2016-07-22] MEDS: FAMOTIDINE 20 MG TABLET. PO SCH (08:41)
[2016-07-22] MEDS: SENNOSIDES/DOCUSATE 8.6/50MG TABLET. PO SCH ×2 (08:41→21:32)
[2016-07-22] MEDS: AMLODIPINE BESYLATE 5 MG TABLET PO SCH (08:42)
[2016-07-22] MEDS: LOSARTAN POTASSIUM 50 MG TABLET. PO SCH (08:42)
[2016-07-22] MEDS: INSULIN ASPART 300 UNITS/3 ML INSULN.PEN SQ SCH ×6 (08:45→17:13)
[2016-07-22] MEDS: OXYCODONE/APAP 5/325 TABLET. PO PRN (08:50)
--- NOTE | 2016-07-22 10:02 | PDOC ---
PROGRESS NOTES Assessment Assessment Metastatic brain disease at left frontal, parietal and occipital lobes, s/p craniotomy. Extensive cerebral vasogenic edema. Multifocal osseous metastatic masses. Right breast mass. DM HTN Obesity. RECOMMENDATIONS/PLAN: She has been treated with Decadron per Neurosurgery. Tapering per Neurosurgery. Keppra if has seizure. Oncology consulted. Discussed with her family at bedside on 07/20/16. OT/PT. Rehab. FU with NS. FU with PCP. FU with Oncology. FU with Neurology as needed. PAST MEDICAL AND SURGICAL HISTORY: Please see H&P ALLERGY: Reviewed. MEDICATIONS: Refer to MAR REVIEW OF SYSTEMS: Constitutional: No malnutrition, weight loss, cachexia. Head: No traumatic brain or head injury. Skin: No edema, or rash. Ear: No infection, tinnitus. Eyes: No vision loss, or diplopia. Nose: No bleeding or purulent discharges. Hearing: No hearing decrease. Neck: No injury. Breast: Right side mass found this time. Cardiac: HTN Pulmonary: No COPD. GI: No GI Ulcer, GI bleeding. Urinary/genital: UTI. Endocrine: Diabetes Mellitus, obesity. Skeletomuscular: Generalized weakness. Neurological: see HP. Psychiatric: Denies drug use/abuse. Otherwise, not [id number] review of systems. PHYSICAL EXAMINATION: General appearance in subacute distress. HEENT: Normocephalic and nontraumatic. Eyes, nose, ears, and throat are unremarkable. Hearing decrease. Neck is supple. No lymphadenopathy. No Crepitus. Cardiovascular: S1, S2, regular rate and rhythm. Pulmonary: Clear to auscultation bilaterally. Abdomen: Bowel sounds are positive. Extremities: No rash, lesions, or edema. No restriction of range of motion in left side. NEUROLOGICAL EXAMINATION: Awake. Oriented to time, place and person. PERRL. EOMI. CN: no significant focal findings. Muscle tone: in right UE. Muscle strength: 5- right UE and LE, 5 left side. DTR: 2 UE, brisky at knee. Plantar reflex: Neutral response bilaterally Gait: able to walk. Sensory exam: seemed mildly decreased at right side. No obvious cerebellar signs elicited. Objective Objective Vital Signs Date Time Temp Pulse Resp B/P Pulse Ox O2 Delivery O2 Flow Rate FiO2 07/22/16 08:50 16 97 Room Air 2.0 07/22/16 08:42 99 121/70 07/22/16 07:00 97.6 97.6 Intake and Output 07/22/16 07:00 Intake Total 700 ml Output Total 875 ml Balance -175 ml Intake Oral 700 ml Output Urine Total 875 ml # Voids 2 # Bowel Movements 1 Vitals Signs Vitals VS - Last 72 Hours, by Label Date Time Temp Pulse Resp B/P Pulse Ox O2 Delivery O2 Flow Rate FiO2 07/22/16 08:50 16 97 Room Air 2.0 07/22/16 08:42 99 121/70 07/22/16 08:42 99 121/70 07/22/16 07:00 97.6 99 16 121/70 97 Room Air 97.6 07/22/16 03:35 98.1 68 18 133/64 96 Room Air 98.1 07/21/16 23:35 99.1 72 16 142/69 96 Room Air 99.1 07/21/16 20:00 Room Air 07/21/16 19:30 98.6 79 16 135/65 96 Room Air 98.6 07/21/16 15:00 97.9 70 16 123/60 99 Room Air 97.9 07/21/16 11:00 98.0 91 16 156/68 99 Room Air 98.0 07/21/16 09:10 77 139/73 07/21/16 09:10 77 139/73 07/21/16 08:00 Room Air 07/21/16 07:00 98.1 77 18 139/73 94 Room Air 98.1 Laboratory Laboratory Laboratory Tests Test 07/21/16 11:37 07/21/16 16:59 07/21/16 20:35 07/22/16 07:58 Glucose (Fingerstick) 235mg/dL (70-99) 128mg/dL (70-99) 114mg/dL (70-99) 185mg/dL (70-99) Comment Review of Relevant I have reviewed the following items tiffany (where applicable) has been applied. SHANIKA PARK MD Jul 22, 2016 10:02
[2016-07-22 11:00] VITALS: BP 121/61
--- NOTE | 2016-07-22 14:37 | PDOC ---
SUBJECTIVE Subjective Denies acute complaints. Right side continues to improve. Accepted to rehab but insurance approval has delayed discharge for multiple days. OBJECTIVE Vital Signs Vital Signs Date Time Temp Pulse Resp B/P Pulse Ox O2 Delivery O2 Flow Rate FiO2 07/22/16 11:00 97.4 73 16 121/61 96 Room Air 97.4 07/22/16 10:02 18 97 Room Air 2.0 07/22/16 08:50 16 97 Room Air 2.0 07/22/16 08:42 99 121/70 07/22/16 08:42 99 121/70 07/22/16 08:00 Room Air 07/22/16 07:00 97.6 99 16 121/70 97 Room Air 97.6 07/22/16 03:35 98.1 68 18 133/64 96 Room Air 98.1 07/21/16 23:35 99.1 72 16 142/69 96 Room Air 99.1 07/21/16 20:00 Room Air 07/21/16 19:30 98.6 79 16 135/65 96 Room Air 98.6 07/21/16 15:00 97.9 70 16 123/60 99 Room Air 97.9 I & O Intake and Output 07/22/16 07:00 Intake Total 700 ml Output Total 875 ml Balance -175 ml Intake Oral 700 ml Output Urine Total 875 ml # Voids 2 # Bowel Movements 1 PHYSICAL EXAM Physical Exam AAOx4, NAD, HOGAN near full strength now, sensation intact LT, incision c/d/i flat with wai ASSESSMENT/PLAN Assessment/Plan Status post craniotomy for brain mass resection. -neurologically stable/improved -d/c to rehab pending insurance -has been okay to d/c from NS standpoint - d/c instructions on 07/20/16 progress note -steroid taper on handwritten script in chart upon d/c -pharmacological DVT prophylaxis okay from NS standpoint Problems: COMMENT Lab Laboratory Tests Test 07/21/16 16:59 07/21/16 20:35 07/22/16 07:58 07/22/16 12:17 Glucose (Fingerstick) 128mg/dL (70-99) 114mg/dL (70-99) 185mg/dL (70-99) 204mg/dL (70-99) ZBIGNIEW RUBY MD Jul 22, 2016 14:36
[2016-07-22 15:00] VITALS: BP 137/61
--- NOTE | 2016-07-22 16:12 | PDOC ---
PROGRESS NOTES Subjective Subjective Patient stable and awaiting rehab approval from insurance company. Good BM yesterday. Objective Objective Vital Signs Date Time Temp Pulse Resp B/P Pulse Ox O2 Delivery O2 Flow Rate FiO2 07/22/16 15:00 97.6 78 16 137/61 98 Room Air 97.6 07/22/16 10:02 2.0 Intake and Output 07/22/16 07:00 Intake Total 700 ml Output Total 875 ml Balance -175 ml Intake Oral 700 ml Output Urine Total 875 ml # Voids 2 # Bowel Movements 1 Physical Exam Abdomen: Normal bowel sounds Heart: Regular rate General: Alert Lungs: Clear to auscultation Assessment Assessment Problems Medical Problems: (1) Bone lesion Status: Acute (2) Brain mass Status: Acute (3) Multiple falls Status: Acute (4) Right knee pain Status: Acute (5) Right wrist pain Status: Acute Surgical Problems: (1) Status post craniotomy Status: Acute 1. Metastatic cancer to the brain, discovered by frequent falls. 2. Type 2 diabetes. 3. Hypertension. 4. Chronic kidney disease stage 3. 5. S/P craniotomy Plan Plan of Care To Rehab in AM Comment Review of Relevant I have reviewed the following items tiffany (where applicable) has been applied. Labs Laboratory Tests Test 07/20/16 21:08 07/21/16 07:14 07/21/16 11:37 07/21/16 16:59 Glucose (Fingerstick) 214mg/dL (70-99) 129mg/dL (70-99) 235mg/dL (70-99) 128mg/dL (70-99) Test 07/21/16 20:35 07/22/16 07:58 07/22/16 12:17 Glucose (Fingerstick) 114mg/dL (70-99) 185mg/dL (70-99) 204mg/dL (70-99) Laboratory Tests Test 07/21/16 16:59 07/21/16 20:35 07/22/16 07:58 07/22/16 12:17 Glucose (Fingerstick) 128mg/dL (70-99) 114mg/dL (70-99) 185mg/dL (70-99) 204mg/dL (70-99) Medications Current Medications Ondansetron HCl (Zofran) 4 mg PRN Q8HRS PRN IV NAUSEA/VOMITING; Start 07/12/16 at 23:45; Stop 07/13/16 at 23:44; Status DC Morphine Sulfate 4 mg PRN Q2HR PRN IV PAIN; Start 07/12/16 at 23:45; Stop 07/13 at 23:44; Status DC Acetaminophen (Tylenol) 650 mg PRN Q4HRS PRN PO FEVER Last administered on 07/13 00:55; Start 07/12/16 at 23:45; Stop 07/13/16 at 23:44; Status DC Amlodipine Besylate (Norvasc) 5 mg DAILY08 PO Last administered on 07/22/16 08: 42; Start 07/13/16 at 10:00 Lisinopril (Prinivil) 20 mg DAILY PO Last administered on 07/14/16 08:53; Start 07/13/16 at 10:00; Stop 07/14/16 at 13:24; Status DC Insulin Detemir (Levemir) 20 units DAILY SQ ; Start 07/13/16 at 10:00; Stop at 19:09; Status DC Lorazepam (Ativan) 0.25 mg 1X ONCE PO Last administered on 07/13/16 12:38; Start 07/13/16 at 12:30; Stop 07/13/16 at 12:31; Status DC Lorazepam (Ativan) 0.25 mg 1X ONCE IV Last administered on 07/13/16 14:10; Start 07/13/16 at 13:30; Stop 07/13/16 at 13:31; Status DC Iohexol (Omnipaque 240 Mg/ml) 50 ml 1X ONCE PO Last administered on 07/13/16 14:14; Start 07/13/16 at 13:45; Stop 07/13/16 at 13:46; Status DC Info (Do NOT chart on this entry -- for MONITORING) 1 each PRN DAILY PRN MC SEE COMMENTS; Start 07/13/16 at 13:45; Stop 07/15/16 at 13:44; Status DC Gadobutrol (Gadavist) 10 mmol 1X ONCE IV Last administered on 07/13/16 15:04 ; Start 07/13/16 at 15:00; Stop 07/13/16 at 17:10; Status DC Insulin Aspart (Novolog) 0-9 UNITS TIDWMEALS SQ Last administered on 07/22/16 13:05; Start 07/13/16 at 17:00 Dextrose 12.5 gm PRN Q15MIN PRN IV SEE COMMENTS; Start 07/13/16 at 16:00; Status Cancel Gabapentin (Neurontin) 100 mg BID PO Last administered on 07/22/16 08:41; Start 07/13/16 at 21:00 Insulin Aspart (Novolog) 10 units TIDAC SQ Last administered on 07/14/16 12:00 ; Start 07/13/16 at 16:30; Stop 07/14/16 at 13:24; Status DC Insulin Detemir (Levemir) 20 units QHS SQ Last administered on 07/13/16 22:16 ; Start 07/13/16 at 21:00; Stop 07/14/16 at 13:24; Status DC Lorazepam (Ativan) 0.5 mg 1X ONCE PO ; Start 07/14/16 at 11:15; Stop 07/14/16 at 11:16; Status DC Dexamethasone Sodium Phosphate (Decadron) 4 mg Q6HRS IV Last administered on 11:51; Start 07/14/16 at 12:00; Stop 07/19/16 at 13:48; Status DC Insulin Aspart (Novolog) 20 units TIDAC SQ Last administered on 07/15/16 08:51 ; Start 07/14/16 at 16:30; Stop 07/15/16 at 09:12; Status DC Insulin Detemir (Levemir) 40 units QHS SQ Last administered on 07/14/16 21:49 ; Start 07/14/16 at 21:00; Stop 07/15/16 at 09:12; Status DC Losartan Potassium (Cozaar) 50 mg DAILY PO Last administered on 07/19/16 08:53 ; Start 07/14/16 at 14:00; Stop 07/19/16 at 09:14; Status DC Insulin Aspart (Novolog) 30 units TIDAC SQ Last administered on 07/18/16 07:30 ; Start 07/15/16 at 12:00; Stop 07/18/16 at 08:17; Status DC Insulin Detemir 60 units 60 units QHS SQ Last administered on 07/15/16 21:44; Start 07/15/16 at 21:00; Stop 07/16/16 at 08:32; Status DC Cefazolin Sodium 2 gm/Sodium Chloride 100 ml @ 200 mls/hr 1X PREOP IV ; Start 07/15/16 at 10:00; Status UNV Cefazolin Sodium/ Dextrose 50 ml @ 100 mls/hr 1X PREOP PRN IV PRIOR TO PROCEDURE Last administered on 07/16/16 10:00; Start 07/15/16 at 06:00; Stop at 05:59; Status DC Bacitracin/Sodium Chloride (Iv Sodium Chloride 0.9% 1000ml Bag) 1,000 ml @ 1, 000 mls/hr 1X PERIOP ONCE IRR Last administered on 07/16/16 10:22; Start at 06:00; Stop 07/16/16 at 06:59; Status DC Ondansetron HCl (Zofran) 4 mg PRN Q6HRS PRN IV Nausea; Start 07/16/16 at 07:00 ; Stop 07/17/16 at 04:35; Status DC Fentanyl Citrate (Fentanyl 2ml Vial) 25 mcg PRN Q5MIN PRN IV MILD PAIN Last administered on 07/16/16 21:17; Start 07/16/16 at 07:00; Stop 07/17/16 at 04:31 ; Status DC Fentanyl Citrate (Fentanyl 2ml Vial) 50 mcg PRN Q5MIN PRN IV MODERATE PAIN Last administered on 07/16/16 13:08; Start 07/16/16 at 07:00; Stop 07/17/16 at 04:31; Status DC Morphine Sulfate 1 mg 1 mg PRN Q10MIN PRN IV SEVERE PAIN; Start 07/16/16 at 07: 00; Stop 07/17/16 at 04:33; Status DC Lactated Ringer's (Iv Lactated Ringers) 1,000 ml @ 30 mls/hr Q24H IV ; Start at 07:00; Stop 07/16/16 at 18:59; Status DC Lidocaine HCl 2 ml 1X PRN PRN ID IV START; Start 07/16/16 at 07:00; Stop at 06:59; Status DC Hydromorphone HCl (Dilaudid) 0.5 mg PRN Q10MIN PRN IV SEVERE PAIN, Second choice; Start 07/16/16 at 07:00; Stop 07/17/16 at 04:35; Status DC Prochlorperazine Edisylate (Compazine) 5 mg PACU PRN PRN IV NAUSEA; Start 07/16 at 07:00; Stop 07/17/16 at 04:35; Status DC Cellulose 1 each STK-MED ONCE .ROUTE Last administered on 07/16/16 11:21; Start 07/16/16 at 07:14; Stop 07/16/16 at 07:15; Status DC Mannitol (Mannitol) 12.5 g STK-MED ONCE .ROUTE ; Start 07/16/16 at 07:14; Stop 07/16/16 at 07:15; Status DC Gelatin (Gelfoam Size 100) 1 each STK-MED ONCE .ROUTE Last administered on 10:22; Start 07/16/16 at 07:15; Stop 07/16/16 at 07:16; Status DC Thrombin 20,000 unit STK-MED ONCE TP Last administered on 07/16/16 10:22; Start 07/16/16 at 07:15; Stop 07/16/16 at 07:16; Status DC Bupivacaine HCl/ Epinephrine Bitart (Sensorcain-Mpf Epi 0.5%-1:[id number]) 30 ml STK -MED ONCE .ROUTE Last administered on 07/16/16 10:22; Start 07/16/16 at 07:15 ; Stop 07/16/16 at 07:16; Status DC Remifentanil HCl (Ultiva) 2 mg STK-MED ONCE IV ; Start 07/16/16 at 08:21; Stop 07/16/16 at 08:22; Status DC Glycopyrrolate (Robinul) 1 mg STK-MED ONCE .ROUTE ; Start 07/16/16 at 08:21; Stop 07/16/16 at 08:22; Status DC Desflurane (Suprane) 90 ml STK-MED ONCE IH ; Start 07/16/16 at 08:22; Stop 07/16 at 08:23; Status DC Lidocaine HCl 100 mg STK-MED ONCE .ROUTE ; Start 07/16/16 at 08:22; Stop at 08:23; Status DC Dexamethasone Sodium Phosphate 20 mg 20 mg STK-MED ONCE .ROUTE ; Start 07/16/16 at 08:22; Stop 07/16/16 at 08:23; Status DC Propofol (Diprivan) 20 ml @ As Directed STK-MED ONCE IV ; Start 07/16/16 at 08: 22; Stop 07/16/16 at 08:23; Status DC Ondansetron HCl (Zofran) 4 mg STK-MED ONCE .ROUTE ; Start 07/16/16 at 08:22; Stop 07/16/16 at 08:23; Status DC Phenylephrine HCl (Thom-Synephrine Inj) 10 mg STK-MED ONCE .ROUTE ; Start at 08:22; Stop 07/16/16 at 08:23; Status DC Rocuronium [place] (Zemuron) 50 mg STK-MED ONCE .ROUTE ; Start 07/16/16 at 08:22 ; Stop 07/16/16 at 08:23; Status DC Gadobutrol (Gadavist) 9 mmol 1X ONCE IV Last administered on 07/16/16 08:30; Start 07/16/16 at 08:30; Stop 07/16/16 at 08:31; Status DC Insulin Detemir 70 units 70 units QHS SQ Last administered on 07/16/16 19:31; Start 07/16/16 at 21:00; Stop 07/17/16 at 08:49; Status DC Propofol (Diprivan) 100 ml @ As Directed STK-MED ONCE IV ; Start 07/16/16 at 08 :33; Stop 07/16/16 at 08:34; Status DC Mannitol (Mannitol) 12.5 g STK-MED ONCE .ROUTE ; Start 07/16/16 at 08:34; Stop 07/16/16 at 08:35; Status DC Fentanyl Citrate (Fentanyl 2ml Vial) 100 mcg STK-MED ONCE .ROUTE ; Start at 08:36; Stop 07/16/16 at 08:37; Status DC Gelatin (Gelfoam Powder) 1 gm STK-MED ONCE .ROUTE Last administered on 10:22; Start 07/16/16 at 08:57; Stop 07/16/16 at 08:58; Status DC Ephedrine Sulfate 50 mg STK-MED ONCE IV ; Start 07/16/16 at 09:37; Stop at 09:38; Status DC Ephedrine Sulfate 50 mg STK-MED ONCE IV ; Start 07/16/16 at 10:30; Stop at 10:31; Status DC Glycopyrrolate (Robinul) 1 mg STK-MED ONCE .ROUTE ; Start 07/16/16 at 10:31; Stop 07/16/16 at 10:32; Status DC Thrombin 20,000 unit STK-MED ONCE TP Last administered on 07/16/16 10:53; Start 07/16/16 at 10:34; Stop 07/16/16 at 10:35; Status DC Insulin Human Regular (Novolin R Vial) 100 unit STK-MED ONCE .ROUTE ; Start at 11:19; Stop 07/16/16 at 11:20; Status DC Lidocaine HCl 100 mg STK-MED ONCE .ROUTE ; Start 07/16/16 at 11:53; Stop at 11:54; Status DC Labetalol HCl 5 mg 5 mg PRN Q15MIN PRN IV HYPERTENSION, SEE COMMENTS Last administered on 07/21/16 00:42; Start 07/16/16 at 12:15 Nicardipine HCl/ Sodium Chloride (Cardene/Iv Sodium Chloride 0.9% 250ml) 270 ml @ 27 mls/hr TITRATE PRN IV PER PROTOCOL; Start 07/16/16 at 12:15; Stop at 09:14; Status DC Hydralazine HCl (Apresoline) 5 mg PRN Q6HRS PRN IVP TO KEEP SBP<140mmHg Last administered on 07/20/16 21:16; Start 07/16/16 at 12:15 Al Hydrox/Mg Hydrox/Simethicone (Mylanta Plus Xs) 30 ml PRN Q3HRS PRN PO HEARTBURN / GAS; Start 07/16/16 at 12:15 Calcium Carbonate/ Glycine (Tums) 500 mg PRN Q3HRS PRN PO INDIGESTION; Start at 12:15 Diphenhydramine HCl (Benadryl) 25 mg PRN Q6HRS PRN PO ITCHING; Start 07/16/16 at 12:15 Diphenhydramine HCl (Benadryl) 25 mg PRN Q6HRS PRN IV ITCHING; Start 07/16/16 at 12:15 Famotidine (Pepcid) 20 mg BID PO Last administered on 07/17/16 08:48; Start at 13:00; Stop 07/17/16 at 09:08; Status DC Sodium Chloride (Normal Saline Flush) 3 ml QSHIFT PRN IV AFTER MEDS AND BLOOD DRAWS; Start 07/16/16 at 12:15 Dextrose 12.5 gm PRN Q15MIN PRN IV SEE COMMENTS Last administered on 07/17/16 16:19; Start 07/16/16 at 12:15 Oxycodone/ Acetaminophen (Percocet 5/325) 1 tab PRN Q4HRS PRN PO MILD PAIN, 1ST CHOICE Last administered on 07/22/16 08:50; Start 07/16/16 at 12:15 Oxycodone/ Acetaminophen (Percocet 5/325) 2 tab PRN Q4HRS PRN PO MODERATE PAIN , SEVERE PAIN; Start 07/16/16 at 12:15 Senna/Docusate Sodium (Senna Plus) 1 tab BID PO Last administered on 07/22/16 08:41; Start 07/16/16 at 13:00 Docusate Sodium (Colace) 100 mg BID PO Last administered on 07/22/16 08:41; Start 07/16/16 at 13:00 Magnesium Hydroxide (Milk Of Magnesia) 2,400 mg PRN Q12HR PRN PO CONSTIPATION; Start 07/16/16 at 12:15 Ondansetron HCl (Zofran) 4 mg PRN Q6HRS PRN IV NAUESA, 1ST CHOICE; Start at 12:15 Fentanyl Citrate (Fentanyl 2ml Vial) 50 mcg PRN Q1HR PRN IV SEVERE PAIN; Start 07/16/16 at 12:15; Stop 07/19/16 at 09:14; Status DC Fentanyl Citrate (Fentanyl 2ml Vial) 25 mcg PRN Q1HR PRN IV SEVERE PAIN Last administered on 07/16/16 17:24; Start 07/16/16 at 12:15; Stop 07/19/16 at 09:14 ; Status DC Insulin Detemir (Levemir) 80 units QHS SQ Last administered on 07/17/16 21:28; Start 07/17/16 at 21:00; Stop 07/18/16 at 08:17; Status DC Lorazepam (Ativan) 0.5 mg PRN Q8HRS PRN PO ANXIETY / AGITATION Last administered on 07/18/16 23:41; Start 07/17/16 at 09:00 Famotidine (Pepcid) 20 mg DAILY PO Last administered on 07/22/16 08:41; Start 07/18/16 at 09:00 Lorazepam (Ativan) 0.5 mg 1X ONCE IV Last administered on 07/17/16 13:44; Start 07/17/16 at 13:30; Stop 07/17/16 at 13:31; Status DC Gadobutrol (Gadavist) 10 mmol 1X ONCE IV Last administered on 07/17/16 14:24; Start 07/17/16 at 14:15; Stop 07/17/16 at 14:16; Status DC Insulin Aspart (Novolog) 15 units 1X ONCE SQ Last administered on 07/17/16 18: 52; Start 07/17/16 at 16:45; Stop 07/17/16 at 17:08; Status DC Insulin Aspart (Novolog) 15 units TIDAC SQ Last administered on 07/19/16 08:59 ; Start 07/18/16 at 11:30; Stop 07/19/16 at 09:14; Status DC Insulin Detemir 70 units 70 units QHS SQ Last administered on 07/18/16 21:18; Start 07/18/16 at 21:00; Stop 07/19/16 at 09:14; Status DC Sodium Chloride (Iv Sodium Chloride 0.9% 1000ml Bag) 1,000 ml @ 100 mls/hr Q10H IV Last administered on 07/20/16 21:18; Start 07/18/16 at 08:15; Stop at 08:52; Status DC Insulin Aspart (Novolog) 20 units TIDAC SQ Last administered on 07/22/16 13:04 ; Start 07/19/16 at 11:30 Insulin Detemir (Levemir) 80 units QHS SQ Last administered on 07/21/16 22:23; Start 07/19/16 at 21:00 Losartan Potassium (Cozaar) 100 mg DAILY PO Last administered on 07/22/16 08:42 ; Start 07/20/16 at 09:00 Losartan Potassium (Cozaar) 50 mg 1X ONCE PO Last administered on 07/19/16 09: 30; Start 07/19/16 at 09:30; Stop 07/19/16 at 09:31; Status DC Dexamethasone Sodium Phosphate (Decadron) 4 mg Q8HRS PO ; Start 07/19/16 at 14:00 ; Stop 07/19/16 at 14:00; Status DC Dexamethasone (Decadron) 4 mg Q8HRS PO Last administered on 07/22/16 14:50; Start 07/19/16 at 14:00 Magnesium Citrate (Citroma) 296 ml 1X ONCE PO Last administered on 07/21/16 09 :10; Start 07/21/16 at 09:00; Stop 07/21/16 at 09:01; Status DC Active Scripts Active Reported [insulin lispro] [gabapentin] PO DAILY Lisinopril 20 Mg Tablet 1 Tab PO DAILY [place] Solostar (Insulin Glargine,Hum.rec.anlog) 300 Unit/1 Ml Insuln.pen 25 Unit SQ DAILY Vitamin D2 (Ergocalciferol (Vitamin D2)) 50,000 Unit Capsule 1 Cap PO WEEKLY Norvasc (Amlodipine Besylate) 5 Mg Tablet 1 Tab PO DAILY08 Vitals/I & O Vital Sign - Last 24 Hours 07/21/16 07/21/16 07/21/16 07/22/16 19:30 20:00 23:35 03:35 Temp 98.6 99.1 98.1 98.6 99.1 98.1 Pulse 79 72 68 Resp 16 16 18 B/P 135/65 142/69 133/64 Pulse Ox 96 96 96 O2 Delivery Room Air Room Air Room Air Room Air 07/22/16 07/22/16 07/22/16 07/22/16 07:00 08:00 08:42 08:42 Temp 97.6 97.6 Pulse 99 99 99 Resp 16 B/P 121/70 121/70 121/70 Pulse Ox 97 O2 Delivery Room Air Room Air 07/22/16 07/22/16 07/22/16/6/17 08:50 10:02 11:00 15:00 Temp 97.4 97.6 97.4 97.6 Pulse 73 78 Resp 16 18 16 16 B/P 121/61 137/61 Pulse Ox 97 97 96 98 O2 Delivery Room Air Room Air Room Air Room Air O2 Flow Rate 2.0 2.0 Intake and Output 07/21/16 07/21/16 07/22/16 15:00 23:00 07:00 Intake Total 700 ml 0 ml Output Total 875 ml Balance -175 ml 0 ml JAMES HAILE MD Jul 22, 2016 16:12
--- NOTE | 2016-07-22 17:13 | PDOC ---
Provider Note Provider Note Post op day 6 following left frontal craniotomy for resection of solitary metastasis. Right sided weakness improving. Ambulating well. Minimal RODGERS, no N or V. Awaiting approval for discharge to rehab facility. Impression: Metastatic renal cell carcinoma with significant mets to rt tibia and lt frontal lobe. Plan on return in 2 weeks to address palliative treatment to frontal lobe resection site and rt tibia. Discussed with patient. LYUDMILA RODRIGUEZ MD Jul 22, 2016 17:13
[2016-07-22 19:47] VITALS: BP 139/68
[2016-07-22] MEDS: INSULIN DETEMIR 300 UNITS/3 ML INSULN.PEN. SQ SCH (21:34)
[2016-07-22 22:51] VITALS: BP 124/66
[2016-07-23 02:51] VITALS: BP 138/68
[2016-07-23] MEDS: DEXAMETHASONE 4 MG TABLET PO SCH (06:05)
[2016-07-23 07:00] VITALS: BP 127/60
[2016-07-23] MEDS: INSULIN ASPART 300 UNITS/3 ML INSULN.PEN SQ SCH ×4 (08:00→12:17)
[2016-07-23] MEDS: FAMOTIDINE 20 MG TABLET. PO SCH (08:52)
[2016-07-23] MEDS: LOSARTAN POTASSIUM 50 MG TABLET. PO SCH (08:53)
[2016-07-23] MEDS: GABAPENTIN 100 MG CAPSULE. PO SCH (08:53)
[2016-07-23] MEDS: AMLODIPINE BESYLATE 5 MG TABLET PO SCH (08:54)
[2016-07-23] MEDS: DOCUSATE SODIUM 100 MG CAPSULE PO SCH (08:54)
[2016-07-23] MEDS: SENNOSIDES/DOCUSATE 8.6/50MG TABLET. PO SCH (08:54)
--- NOTE | 2016-07-23 09:59 | DS ---
DATE OF DISCHARGE: 07/23/2016 ADDENDUM TO DISCHARGE SUMMARY: The patient was initially scheduled for discharge on 07/20/2016, but insurance and rehabilitation facility were not ready to approve or take the patient; therefore, the patient was continued during her hospital stay for PT and OT modalities until 07/23/2016 when she was discharged. DISCHARGE DIAGNOSIS: Metastatic renal cancer status post craniotomy for metastatic disease to the brain. Plan was to continue as previously dictated and transfer to a rehab center for continued rehab efforts and follow up with Dr. Deng of Radiation Oncology in 7-13 days and with Hematology Oncology in 1-2 weeks. JAMES HAILE MD DR: EL/nts JOB#: [id number] / [id number]
[2016-07-23 11:00] VITALS: BP 124/63
--- NOTE | 2016-07-23 16:02 | PDOC ---
PROGRESS NOTES Assessment Assessment Metastatic brain disease at left frontal, parietal and occipital lobes, s/p craniotomy. Extensive cerebral vasogenic edema. Multifocal osseous metastatic masses. Right breast mass. DM HTN Obesity. RECOMMENDATIONS/PLAN: She has been treated with Decadron per Neurosurgery. Tapering per Neurosurgery. Keppra if has seizure. Oncology consulted. Discussed with her family at bedside on 07/23/16. OT/PT. Rehab. FU with NS. FU with PCP. FU with Oncology. FU with Neurology as needed. PAST MEDICAL AND SURGICAL HISTORY: Please see H&P ALLERGY: Reviewed. MEDICATIONS: Refer to MAR REVIEW OF SYSTEMS: Constitutional: No malnutrition, weight loss, cachexia. Head: No traumatic brain or head injury. Skin: No edema, or rash. Ear: No infection, tinnitus. Eyes: No vision loss, or diplopia. Nose: No bleeding or purulent discharges. Hearing: No hearing decrease. Neck: No injury. Breast: Right side mass found this time. Cardiac: HTN Pulmonary: No COPD. GI: No GI Ulcer, GI bleeding. Urinary/genital: UTI. Endocrine: Diabetes Mellitus, obesity. Skeletomuscular: Generalized weakness. Neurological: see HP. Psychiatric: Denies drug use/abuse. Otherwise, not -hulph review of systems. PHYSICAL EXAMINATION: General appearance in no acute distress. HEENT: Normocephalic and nontraumatic. Eyes, nose, ears, and throat are unremarkable. Hearing decrease. Neck is supple. No lymphadenopathy. No Crepitus. Cardiovascular: S1, S2, regular rate and rhythm. Pulmonary: Clear to auscultation bilaterally. Abdomen: Bowel sounds are positive. Extremities: No rash, lesions, or edema. No restriction of range of motion in left side. NEUROLOGICAL EXAMINATION: Awake. Oriented to time, place and person. PERRL. EOMI. CN: no significant focal findings. Muscle tone: in right UE. Muscle strength: 5- right UE and LE, 5 left side. DTR: 2 UE, brisky at knee. Plantar reflex: Neutral response bilaterally Gait: able to walk in room. Sensory exam: seemed mildly decreased at right side. No obvious cerebellar signs elicited. Objective Objective Vital Signs Date Time Temp Pulse Resp B/P Pulse Ox O2 Delivery O2 Flow Rate FiO2 07/23/16 11:00 98.0 86 18 124/63 98 Room Air 98.0 07/22/16 10:02 2.0 Intake and Output 07/23/16 07:00 Intake Total 740 ml Output Total 1300 ml Balance -560 ml Intake Oral 740 ml Output Urine Total 1300 ml # Voids 3 Vitals Signs Vitals VS - Last 72 Hours, by Label Date Time Temp Pulse Resp B/P Pulse Ox O2 Delivery O2 Flow Rate FiO2 07/23/16 11:00 98.0 86 18 124/63 98 Room Air 98.0 07/23/16 08:54 66 127/60 07/23/16 08:53 66 127/60 07/23/16 07:50 Room Air 07/23/16 07:00 97.4 66 18 127/60 95 Room Air 97.4 07/23/16 02:51 98.3 72 18 138/68 96 Room Air 98.3 07/22/16 22:51 98.1 69 18 124/66 94 Room Air 98.1 07/22/16 20:00 Room Air 07/22/16 19:47 98.7 74 18 139/68 97 Room Air 98.7 07/22/16 15:00 97.6 78 16 137/61 98 Room Air 97.6 07/22/16 11:00 97.4 73 16 121/61 96 Room Air 97.4 07/22/16 10:02 18 97 Room Air 2.0 07/22/16 08:50 16 97 Room Air 2.0 07/22/16 08:42 99 121/70 07/22/16 08:42 99 121/70 07/22/16 08:00 Room Air 07/22/16 07:00 97.6 99 16 121/70 97 Room Air 97.6 Laboratory Laboratory Laboratory Tests Test 07/22/16 21:23 07/23/16 07:10 07/23/16 11:39 Glucose (Fingerstick) 164mg/dL (70-99) 114mg/dL (70-99) 189mg/dL (70-99) Comment Review of Relevant I have reviewed the following items tiffany (where applicable) has been applied. SHANIKA PARK MD Jul 23, 2016 16:02
[2016-08-07] MEDS ORDERED: INSU100V13 SQ (14:25)
[2016-08-07] MEDS ORDERED: INSU100I17 SQ (14:25)
== END 2016-07-23 14:25 | DRG 40 ==
LOC: ER 20:33 → 6 SOUTH 22:50 → 1 WEST ICU 07-16 10:35 → 4 NORTH 07-17 16:17
PROVIDERS: ADMIT Family Medicine; ATTEND Family Medicine
PROC: D020DZZ Stereotactic Other Photon Radiosurgery of Brain (ICD-10-PCS; principal; 2016-07-16 08:45)
DX: C79.31 Secondary malignant neoplasm of brain (principal); G93.6 Cerebral edema; C78.01 Secondary malignant neoplasm of right lung; C78.02 Secondary malignant neoplasm of left lung; C79.51 Secondary malignant neoplasm of bone; G81.91 Hemiplegia, unspecified affecting right dominant side; G93.89 Other specified disorders of brain; N18.3 Chronic kidney disease, stage 3 (moderate); D64.9 Anemia, unspecified; E11.22 Type 2 diabetes mellitus with diabetic chronic kidney disease; E66.9 Obesity, unspecified; Z68.36 Body mass index [BMI] 36.0-36.9, adult; G89.29 Other chronic pain; I12.9 Hypertensive chronic kidney disease with stage 1 through stage 4 chronic kidney disease, or unspecified chronic kidney disease; K59.00 Constipation, unspecified; T38.0X5A Adverse effect of glucocorticoids and synthetic analogues, initial encounter; Z79.4 Long term (current) use of insulin; Z79.899 Other long term (current) drug therapy; Z85.038 Personal history of other malignant neoplasm of large intestine; Z90.49 Acquired absence of other specified parts of digestive tract; Z90.5 Acquired absence of kidney; Z91.81 History of falling; Z80.0 Family history of malignant neoplasm of digestive organs; Z85.528 Personal history of other malignant neoplasm of kidney
CPT/HCPCS: 36415; 70450; 70552; 70553; 71250; 72125; 73110; 73562; 74176; 78306; 80048; 80053; 82947; 85007; 85027; 85610; 87641; 88307; 88331; 96374; A9503; A9585; C1713; J0360; J0690; J1100; J1815; J2060; J2150; J2405; J2704; J3010; J3490; J7030; J7042; J8540; Q9966; 92507; 92523; 97110; 97116; 97530; 97535; 99285-25

== ENCOUNTER 2016-08-19 06:53 | Inpatient (IN) | payer BC ==
[~2016-08-19] VITALS: Ht 162.6 cm; Wt 91.7 kg
[~2016-08-19 06:53] MED LIST: AMLO5TAB4 PO; CALC200T23 PO; DEXA4TAB PO; DIPH25CA58 PO; DOCU-27 PO; ERGO500012 PO; FAMO20TA5 PO; GABA-585 PO; INSU100I17 SQ; INSU100I27 SQ; INSU100V13 SQ; INSU300I SQ; INSULIN LISPRO; LISI-334 PO; LORA0.5T96 PO; LOSA50TA2 PO; OXYC1TAB7 PO; gabapentin PO
[2016-08-19] MEDS ORDERED: ONDANSETRON PF 4 MG/2 ML VIAL. ONE (07:24)
--- NOTE | 2016-08-19 07:24 | PHYS DOC ---
Past Medical History Past Medical History: Cancer, Diabetes-Type II, Hypertension Additional Past Medical Histor: Sciatica, renal cancer, right tibia cancer, brain cancer Past Surgical History: Appendectomy Additional Past Surgical Histo: Nephrectomy, colectomy Alcohol Use: None Drug Use: None Adult General Chief Complaint Chief Complaint: LOWER EXT PAIN HPI HPI Patient is a 56 year old female presents to the emergency department with a history of right lower leg pain. Patient states she had gotten up to feed the cat and on the way back to bed she heard a pop in her right lower leg and she fell. She states she has cancer in her right tibia and was told that she may end breaking her leg by her oncologist. Patient denies numbness, tingling in the lower extremity. She does have pain and swelling in the lower leg. Peripheral pulses 2+ cap refill brisk < 2 seconds. Patient last ate or drank was last night. Patient denies light headed, dizziness, chest pain or shortness of air prior to falling. Patient does have hx of diabetes. Review of Systems Review of Systems Constitutional: Denies fever or chills [] Eyes: Denies change in visual acuity, redness, or eye pain [] HENT: Denies nasal congestion or sore throat [] Respiratory: Denies cough or shortness of breath [] Cardiovascular: No additional information not addressed in HPI [] GI: Denies abdominal pain, nausea, vomiting, bloody stools or diarrhea [] : Denies dysuria or hematuria [] Musculoskeletal: Denies back pain. C/o right lower leg pain and discomfort Integument: Denies rash or skin lesions [] Neurologic: Denies headache, focal weakness or sensory changes [] Current Medications Current Medications Current Medications Medications (Trade) Dose Ordered Sig/[facility] Start Time Stop Time Status Last Admin Dose Admin Morphine Sulfate 4 mg STK-MED ONCE 08/19/16 07:25 08/19/16 07:26 DC Ondansetron HCl (Zofran) 4 mg STK-MED ONCE 08/19/16 07:24 08/19/16 07:25 DC Allergies Allergies Allergies Coded Allergies Type Severity Reaction Last Updated Verified No Known Drug Allergies 07/12/16 No Physical Exam Physical Exam Constitutional: Well developed, well nourished, no acute distress, non-toxic appearance. [] HENT: Normocephalic, atraumatic, bilateral external ears normal, oropharynx moist, no oral exudates, nose normal. [] Eyes: PERRLA, EOMI, conjunctiva normal, no discharge. [] Neck: Normal range of motion, no tenderness, supple, no stridor. [] Cardiovascular:Heart rate regular rhythm, no murmur [] Lungs & Thorax: Bilateral breath sounds clear to auscultation [] Skin: Warm, dry, no erythema, no rash. [] Back: No tenderness Extremities: Right knee, right tib/fib, right ankle and foot tenderness, no cyanosis, no clubbing, decrease ROM noted, no edema. Patient with swelling noted to the right foot, peripheral pulses 2+ cap refill brisk < 2 seconds. Good sensation noted. No discoloration noted, or bruising noted. Neurologic: Alert and oriented X 3, normal motor function, normal sensory function, no focal deficits noted. [] Psychologic: Affect normal, judgement normal, mood normal. [] Current Patient Data Vital Signs Vital Signs Date Time Temp Pulse Resp B/P Pulse Ox O2 Delivery O2 Flow Rate FiO2 08/19/16 07:47 98 18 156/70 97 Room Air 08/19/16 06:55 98.1 98.1 Lab Values Laboratory Tests Test 08/19/16 07:45 White Blood Count 8.3x10^3/uL (4.0-11.0) Red Blood Count 4.23x10^6/uL (3.50-5.40) Hemoglobin 11.8g/dL (12.0-15.5) L Hematocrit 36.1% (36.0-47.0) Mean Corpuscular Volume 86fL (79-100) Mean Corpuscular Hemoglobin 28pg (25-35) Mean Corpuscular Hemoglobin Concent 33g/dL (31-37) Red Cell Distribution Width 14.0% (11.5-14.5) Platelet Count 235x10^3/uL (140-400) Neutrophils (%) (Auto) 77% (31-73) H Lymphocytes (%) (Auto) 14% (24-48) L Monocytes (%) (Auto) 8% (0-9) Eosinophils (%) (Auto) 1% (0-3) Basophils (%) (Auto) 1% (0-3) Neutrophils # (Auto) 6.4x10^3uL (1.8-7.7) Lymphocytes # (Auto) 1.1x10^3/uL (1.0-4.8) Monocytes # (Auto) 0.6x10^3/uL (0.0-1.1) Eosinophils # (Auto) 0.1x10^3/uL (0.0-0.7) Basophils # (Auto) 0.0x10^3/uL (0.0-0.2) Sodium Level 139mmol/L (136-145) Potassium Level 4.1mmol/L (3.5-5.1) Chloride Level 103mmol/L (98-107) Carbon Dioxide Level 26mmol/L (21-32) Anion Gap 10 (6-14) Blood Urea Nitrogen 23mg/dL (7-20) H Creatinine 1.4mg/dL (0.6-1.0) H Estimated GFR (Cockcroft-Gault) 38.6 BUN/Creatinine Ratio 16 (6-20) Glucose Level 311mg/dL (70-99) H Calcium Level 10.9mg/dL (8.5-10.1) H Total Bilirubin 0.6mg/dL (0.2-1.0) Aspartate Amino Transferase (AST) 13U/L (15-37) L Alanine Aminotransferase (ALT) 22U/L (14-59) Alkaline Phosphatase 104U/L (46-116) Troponin I Quantitative < 0.017ng/mL (0.000-0.055) Total Protein 6.6g/dL (6.4-8.2) Albumin 3.1g/dL (3.4-5.0) L Albumin/Globulin Ratio 0.9 (1.0-1.7) L Laboratory Tests 08/19/16 07:45 Laboratory Tests 08/19/16 07:45 EKG EKG [] Radiology/Procedures Radiology/Procedures [facility] [address] [place] [address] IMAGING REPORT Signed PATIENT: CHRIS CHONG ACCOUNT: [id number] : 1960 LOCATION: ER AGE: 56 SEX: F EXAM [id number]; [id number] STATUS: REG ER ORD. PHYSICIAN: STEPHANIE RIVERA APRN REASON: pain in the right lower leg heard a pop and then fell PROCEDURE: FOOT RIGHT 2V; KNEE RIGHT 3V; TIBIA FIBULA RIGHT Right knee, 3 views, 08/19/2016: History: Injury, known bone cancer There is a fracture of the proximal tibia at the level of an underlying lytic lesion. This 7 cm lytic lesion was also evident on the 07/12/2016 study. There is unchanged deformity of the proximal fibular shaft likely due to old trauma. There are mild degenerative changes at the knee. There is considerable subcutaneous edema anterolaterally. IMPRESSION: Pathologic fracture of the proximal tibia. Right tibia and fibula, 2 views, 08/19/2016: There is an additional fracture of the lateral malleolus. There are sclerotic changes along the fracture line suggests that this may be old. There is extensive subcutaneous edema. IMPRESSION: Lateral malleolar fracture which may be old and incompletely healed. Right foot, 3 views, 08/19/2016: There is moderate degenerative change at the midfoot level. There is a prominent inferior calcaneal spur. No acute foot fracture or dislocation is evident. There is extensive edema about the foot and ankle. IMPRESSION: 1. Moderate degenerative change. 2. No acute bony abnormality is detected. DICTATED and SIGNED BY: JANY WARD MD DATE: 08/19/16 0759 CC: STEPHANIE RIVERA APRN; MARA PATINO MD ~ [] Course & Med Decision Making Course & Med Decision Making Pertinent Labs and Imaging studies reviewed. (See chart for details) X-rays positive for fracture at the tibia and ankle. Patient will be admitted into the hospital for pain control and fracture. [address] Le in regards to patient being admitted into the hospital for lower right leg fracture. She agrees with admission, Patient will also have ortho consult. Orders written. [] Dragon Disclaimer Dragon Disclaimer This electronic medical record was generated, in whole or in part, using a voice recognition dictation system. Departure Departure Impression: Primary Impression: Pathological fracture of right tibia Additional Impression: Right malleolar fracture Admitting Physician: Mara Patino Condition: STABLE Referrals: MARA PATINO MD (PCP) Splinting Splinting : Location: right leg Pre-Made Type: Hand-Made Type: orthoglass Splint: long leg splint Pre-Proc Neuro Vasc Exam: normal Post-Proc Neuro Vasc Exam: normal Problem Qualifiers STEPHANIE RIVERA APRN Aug 19, 2016 07:24
[2016-08-19] MEDS ORDERED: MORPHINE SULFATE 4 MG/ML DISP.SYRIN. ONE (07:25)
[2016-08-19 07:59] LABS: BASO % 1 % (0-3); EOS % 1 % (0-3); HEMATOCRIT 36.1 % (36.0-47.0); HEMOGLOBIN 11.8 g/dL (12.0-15.5); LYMPH # 1.1 x10^3/uL (1.0-4.8); LYMPH % 14 % (24-48); MEAN CORPUSCULAR HEMOGLOBIN 28 pg (25-35); MEAN CORPUSCULAR HGB CONC 33 g/dL (31-37); MEAN CORPUSCULAR VOLUME 86 fL (79-100); MONO % 8 % (0-9); NEUT % 77 % (31-73); PLATELET COUNT 235 x10^3/uL (140-400); RED BLOOD COUNT 4.23 x10^6/uL (3.50-5.40); WHITE BLOOD COUNT 8.3 x10^3/uL (4.0-11.0)
[2016-08-19] MEDS ORDERED: ONDANSETRON PF 4 MG/2 ML VIAL. IV ONE (08:00)
[2016-08-19] MEDS ORDERED: MORPHINE SULFATE 4 MG/ML DISP.SYRIN. IV ONE (08:00)
--- NOTE | 2016-08-19 08:10 | RAD ---
Right knee, 3 views, 08/19/2016: History: Injury, known bone cancer There is a fracture of the proximal tibia at the level of an underlying lytic lesion. This 7 cm lytic lesion was also evident on the 07/12/2016 study. There is unchanged deformity of the proximal fibular shaft likely due to old trauma. There are mild degenerative changes at the knee. There is considerable subcutaneous edema anterolaterally. IMPRESSION: Pathologic fracture of the proximal tibia. Right tibia and fibula, 2 views, 08/19/2016: There is an additional fracture of the lateral malleolus. There are sclerotic changes along the fracture line suggests that this may be old. There is extensive subcutaneous edema. IMPRESSION: Lateral malleolar fracture which may be old and incompletely healed. Right foot, 3 views, 08/19/2016: There is moderate degenerative change at the midfoot level. There is a prominent inferior calcaneal spur. No acute foot fracture or dislocation is evident. There is extensive edema about the foot and ankle. IMPRESSION: 1. Moderate degenerative change. 2. No acute bony abnormality is detected.
[2016-08-19 08:17] LABS: CALCIUM 10.9 mg/dL (8.5-10.1); CREATININE 1.4 mg/dL (0.6-1.0); GFR 38.6; POTASSIUM 4.1 mmol/L (3.5-5.1)
[2016-08-19] MEDS: HYDROMORPHONE 2 MG/ML VIAL. IV/SQ PRN ×2 (08:17→08:43)
[2016-08-19 08:23] LABS: ALBUMIN 3.1 g/dL (3.4-5.0); ALBUMIN/GLOBULIN RATIO 0.9 (1.0-1.7); TOTAL BILIRUBIN 0.6 mg/dL (0.2-1.0); TOTAL PROTEIN 6.6 g/dL (6.4-8.2)
[2016-08-19] MEDS ORDERED: ONDANSETRON PF 4 MG/2 ML VIAL. IV PRN (08:30)
[2016-08-19] MEDS ORDERED: HYDROMORPHONE 2 MG/ML VIAL. IV PRN (08:30)
--- NOTE | 2016-08-19 10:07 | ACF ---
Admission Forms Criteria MUSCULOSKELETAL DISEASE GRG Clinical Indications for Admission to Inpatient Care (Place 'X' for any and all applicable criteria): Hospital admission is needed for appropriate care of the patient because of ANY ONE of the following: [ X]I. Fracture, dislocation, or other musculoskeletal injury requiring inpatient care(medical) as indicated by ANY ONE of the following(4)(5)(6)(7) [ ]a) Vertebral fracture requiring observation for instability or neurologic compromise (8) [ ]b) Compartment syndrome (proven or cannot be ruled out during observation level of care) (9) [ ]c) Limb-threatening injury [ ]d) Major injury requiring inpatient stabilization such as traction initiation or external fixation before internal fixation or closure of complex or open fracture [X ]e) Major injury requiring inpatient treatment after emergency or observation level care (as appropriate) [ ]f) Severe pain requiring acute inpatient management [ ]II. Newly diagnosed or suspected bone, joint, or orthopedic device infection (e.g., osteomyelitis, septic arthritis) needing ANY ONE of the following(1)(2)(3) [ ]a) IV antibiotics that cannot be initiated in other than inpatient setting (e.g., patient too unstable or home infusion not available) [ ]b) Device removal or replacement [ ]c) Bone or soft tissue debridement [ ]d) Joint drainage (drain placement or repetitive aspirations) [ ]III. Severe rheumatologic disease (e.g., systemic lupus erythematosus, rheumatoid arthritis) with complications or comorbidities (Also use Optimal Recovery Care Criteria or General Recovery Criteria as appropriate on the basis of predominant condition), including ANY ONE of the following(10 )(11)(12)(13) [ ]a) Severe infection (e.g., BURNER SHAFT infection, sepsis) (14) [ ]b) Respiratory complications, including ANY ONE of the following: [ ]i) Pleural effusion with respiratory compromise [ ]ii) Pulmonary hypertension with congestive failure [ ]iii) Respiratory failure [ ]iv) Pulmonary hemorrhage (15) [ ]c) Hematologic disease, including ANY ONE of the following: [ ]i) Coagulopathy with bleeding [ ]ii) Thrombosis with hypercoagulable state [ ]iii) Thrombotic thrombocytopenic purpura [ ]d) Cerebritis with seizures, psychosis, or other severe abnormalities [ ]e) Vertebral destruction with monitoring needed for cervical myelopathy& possible respiratory compromise [ ]f) Exacerbation that requires inpatient treatment (e.g., intravenous immunosuppression) (16) [ ]g) Acute renal failure [ ]IV. Severe vasculitis with complications or comorbidities (Also use Optimal Recovery Care Criteria or General Recovery Criteria as appropriate on the basis of predominant condition), including ANY ONE of the following(11)(12)(17)(18)(19)(20) [ ]a) BURNER SHAFT vasculitis with seizures, psychosis, or other severe abnormalities (22) [ ]b) Renal failure (16) [ ]c) Pulmonary hemorrhage (15) [ ]d) Cerebral infarction [ ]e) Gastrointestinal ischemia [ ]f) Gangrene or threatened amputation [ ]g) Exacerbation that requires inpatient treatment (e.g., intravenous immunosuppression) (19)(21) [ ]V. Severe myopathy as indicated by ANY ONE of the following (28)(29) [ ]a) New onset of airway compromise or inability to swallow [ ]b) Respiratory deterioration with observation needed for impending respiratory failure [ ]c) Exacerbation that requires inpatient treatment (e.g., intravenous immunosuppression) [ ]. Severe gout (crystal arthropathy) as indicated by ANY ONE of the following (23)(24) [ ]a) Severe pain requiring acute inpatient management [ ]b) Exacerbation that requires inpatient treatment (e.g., intravenous treatment) [ ]VII.Rhabdomyolysis and ANY ONE of the following (25)(26)(27) [ ]a) Acute renal failure [ ]b) Need for intravenous hydration after emergency or observation level care (as appropriate) [ ]c) Inability to maintain oral hydration [ ]d) Change in mental status [ ]e) Electrolyte abnormality that remains after emergency or observation level care (as appropriate) [ ]VIII Post amputation complication, as indicated by ANY ONE of the following [ ]a) Infection [ ]b) Dehiscence [ ]c) Myodesis failure [ ]IX. Severe pain requiring acute inpatient management as indicated by ALL of the following (30)(31)(32) [ ]a) Continuous or frequent (e.g., every 2 to 4 hrs) parenteral analgesics required [A] [ ]b) Rapid improvement expected from treatment or acute intervention ( e.g., surgery, anesthesia procedure[B] [ ]X. Musculoskeletal Disease and ALL of the following: [ ]a) Symptom or finding for which emergency and observation care have failed or are not considered appropriate (Use General Criteria: Observation Care as appropriate) [ ]b) Presence of ANY ONE of the following [ ]i) A General Admission Criteria [ ]ii) A Pediatric General Admission Criteria The original [facility] content created by [facility] has been revised. The portions of the content which have been revised are identified through the use of italic text or in bold, and [facility] has neither reviewed nor approved the modified material. All other unmodified content is copyright [facility]. Please see references footnoted in the original [facility] edition 2016 Admission Criteria Met?: Yes REGI COOMBS Aug 19, 2016 10:07 CYNTHIA LOERA Aug 20, 2016 01:42
[2016-08-19 11:00] VITALS: BP 136/63
[2016-08-19] MEDS ORDERED: DEXTROSE 50% 25 GM / 50ML DISP.SYRIN. IV PRN (13:30)
[2016-08-19] MEDS ORDERED: OXYCODONE/APAP 5/325 TABLET. PO PRN (13:30)
[2016-08-19] MEDS ORDERED: DOCUSATE SODIUM 100 MG CAPSULE. PO PRN (13:30)
[2016-08-19] MEDS ORDERED: MORPHINE SULFATE 2 MG/ML DISP.SYRIN. IV PRN (13:30)
--- NOTE | 2016-08-19 13:33 | PDOC ---
PROGRESS NOTES Subjective Subjective Patient reports some pain present by her right knee, not too bad when she doesn' t move it. Objective Objective Vital Signs Date Time Temp Pulse Resp B/P Pulse Ox O2 Delivery O2 Flow Rate FiO2 08/19/16 11:00 99.3 106 16 136/63 88 Room Air 99.3 Physical Exam Abdomen: Normal bowel sounds, Soft, No tenderness Heart: Regular rate Extremities: Other (L LE without edema. R LE with splint in place) General: Alert, Oriented X3, No acute distress Lungs: Clear to auscultation Assessment Assessment Problems Medical Problems: (1) Ankle fracture, right Status: Acute (2) Pathological fracture of right tibia Status: Acute (3) Right malleolar fracture Status: Acute (4) Tibia fracture Status: Acute Plan Plan of Care 1. Pathologic fracture right proximal tibia - waiting Ortho input as to further tx. May have ankle fracture also. Pain meds ordered. 2. metastatic renal cell cancer -- recovering well from resection of brain mass last month. Speech seems back to normal. Has been having XRT to her brain and tibia. Hasn't started tx from Oncology yet. 3. DM2 - not well controlled, resume insulins and adjust doses as needed. 4. HTN - resume home meds and follow. 5. CKD III - stable on lab. Comment Review of Relevant I have reviewed the following items tiffany (where applicable) has been applied. Labs Laboratory Tests Test 08/19/16 07:45 08/19/16 10:23 White Blood Count 8.3x10^3/uL (4.0-11.0) Red Blood Count 4.23x10^6/uL (3.50-5.40) Hemoglobin 11.8g/dL (12.0-15.5) Hematocrit 36.1% (36.0-47.0) Mean Corpuscular Volume 86fL (79-100) Mean Corpuscular Hemoglobin 28pg (25-35) Mean Corpuscular Hemoglobin Concent 33g/dL (31-37) Red Cell Distribution Width 14.0% (11.5-14.5) Platelet Count 235x10^3/uL (140-400) Neutrophils (%) (Auto) 77% (31-73) Lymphocytes (%) (Auto) 14% (24-48) Monocytes (%) (Auto) 8% (0-9) Eosinophils (%) (Auto) 1% (0-3) Basophils (%) (Auto) 1% (0-3) Neutrophils # (Auto) 6.4x10^3uL (1.8-7.7) Lymphocytes # (Auto) 1.1x10^3/uL (1.0-4.8) Monocytes # (Auto) 0.6x10^3/uL (0.0-1.1) Eosinophils # (Auto) 0.1x10^3/uL (0.0-0.7) Basophils # (Auto) 0.0x10^3/uL (0.0-0.2) Sodium Level 139mmol/L (136-145) Potassium Level 4.1mmol/L (3.5-5.1) Chloride Level 103mmol/L (98-107) Carbon Dioxide Level 26mmol/L (21-32) Anion Gap 10 (6-14) Blood Urea Nitrogen 23mg/dL (7-20) Creatinine 1.4mg/dL (0.6-1.0) Estimated GFR (Cockcroft-Gault) 38.6 BUN/Creatinine Ratio 16 (6-20) Glucose Level 311mg/dL (70-99) Calcium Level 10.9mg/dL (8.5-10.1) Total Bilirubin 0.6mg/dL (0.2-1.0) Aspartate Amino Transf (AST/SGOT) 13U/L (15-37) Alanine Aminotransferase (ALT/SGPT) 22U/L (14-59) Alkaline Phosphatase 104U/L (46-116) Troponin I Quantitative < 0.017ng/mL (0.000-0.055) Total Protein 6.6g/dL (6.4-8.2) Albumin 3.1g/dL (3.4-5.0) Albumin/Globulin Ratio 0.9 (1.0-1.7) Glucose (Fingerstick) 320mg/dL (70-99) Laboratory Tests Test 08/19/16 07:45 08/19/16 10:23 White Blood Count 8.3x10^3/uL (4.0-11.0) Red Blood Count 4.23x10^6/uL (3.50-5.40) Hemoglobin 11.8g/dL (12.0-15.5) Hematocrit 36.1% (36.0-47.0) Mean Corpuscular Volume 86fL (79-100) Mean Corpuscular Hemoglobin 28pg (25-35) Mean Corpuscular Hemoglobin Concent 33g/dL (31-37) Red Cell Distribution Width 14.0% (11.5-14.5) Platelet Count 235x10^3/uL (140-400) Neutrophils (%) (Auto) 77% (31-73) Lymphocytes (%) (Auto) 14% (24-48) Monocytes (%) (Auto) 8% (0-9) Eosinophils (%) (Auto) 1% (0-3) Basophils (%) (Auto) 1% (0-3) Neutrophils # (Auto) 6.4x10^3uL (1.8-7.7) Lymphocytes # (Auto) 1.1x10^3/uL (1.0-4.8) Monocytes # (Auto) 0.6x10^3/uL (0.0-1.1) Eosinophils # (Auto) 0.1x10^3/uL (0.0-0.7) Basophils # (Auto) 0.0x10^3/uL (0.0-0.2) Sodium Level 139mmol/L (136-145) Potassium Level 4.1mmol/L (3.5-5.1) Chloride Level 103mmol/L (98-107) Carbon Dioxide Level 26mmol/L (21-32) Anion Gap 10 (6-14) Blood Urea Nitrogen 23mg/dL (7-20) Creatinine 1.4mg/dL (0.6-1.0) Estimated GFR (Cockcroft-Gault) 38.6 BUN/Creatinine Ratio 16 (6-20) Glucose Level 311mg/dL (70-99) Calcium Level 10.9mg/dL (8.5-10.1) Total Bilirubin 0.6mg/dL (0.2-1.0) Aspartate Amino Transf (AST/SGOT) 13U/L (15-37) Alanine Aminotransferase (ALT/SGPT) 22U/L (14-59) Alkaline Phosphatase 104U/L (46-116) Troponin I Quantitative < 0.017ng/mL (0.000-0.055) Total Protein 6.6g/dL (6.4-8.2) Albumin 3.1g/dL (3.4-5.0) Albumin/Globulin Ratio 0.9 (1.0-1.7) Glucose (Fingerstick) 320mg/dL (70-99) Medications Current Medications Morphine Sulfate 4 mg 1X ONCE IV Last administered on 08/19/16 07:38; Start at 08:00; Stop 08/19/16 at 08:01; Status DC Ondansetron HCl (Zofran) 4 mg 1X ONCE IV Last administered on 08/19/16 07:37; Start 08/19/16 at 08:00; Stop 08/19/16 at 08:01; Status DC Ondansetron HCl (Zofran) 4 mg STK-MED ONCE .ROUTE ; Start 08/19/16 at 07:24; Stop 08/19/16 at 07:25; Status DC Morphine Sulfate 4 mg STK-MED ONCE .ROUTE ; Start 08/19/16 at 07:25; Stop at 07:26; Status DC Hydromorphone HCl (Dilaudid) 1 mg PRN Q15MIN PRN IV/SQ PAIN GREATER THAN 3/10 Last administered on 08/19/16 08:43; Start 08/19/16 at 08:15; Stop 08/20/16 at 08: 14 Hydromorphone HCl (Dilaudid) 1 mg PRN Q3HRS PRN IV pain Last administered on 10:08; Start 08/19/16 at 08:30 Ondansetron HCl (Zofran) 4 mg PRN Q6HRS PRN IV NAUSEA/VOMITING; Start 08/19/16 at 08:30 Amlodipine Besylate (Norvasc) 5 mg DAILY PO ; Start 08/20/16 at 09:00; Status UNV Gabapentin (Neurontin) 100 mg BID PO ; Start 08/19/16 at 21:00; Status UNV Insulin Aspart (Novolog) 10 units TIDAC SQ ; Start 08/19/16 at 16:30; Status UNV Losartan Potassium (Cozaar) 100 mg DAILY PO ; Start 08/20/16 at 09:00; Status UNV Oxycodone/ Acetaminophen (Percocet 5/325) 1-2 tabs PRN Q4HRS PRN PO PAIN; Start 08/19/16 at 13:30; Status UNV Insulin Detemir (Levemir) 40 units QHS SQ ; Start 08/19/16 at 21:00; Status UNV Active Scripts Active Oxycodone-Acetaminophen 5-325 (Oxycodone Hcl/Acetaminophen) 1 Each Tablet 1 Tab PO PRN Q4HRS PRN Cozaar (Losartan Potassium) 50 Mg Tablet 100 Mg PO DAILY Gabapentin 100 Mg Capsule 100 Mg PO BID Reported Levemir (Insulin Detemir) 100 Unit/1 Ml Vial 25 Unit SQ HS Novolog Flexpen (Insulin Aspart) 100 Unit/1 Ml Insuln.pen Unit SQ TIDAC Norvasc (Amlodipine Besylate) 5 Mg Tablet 1 Tab PO DAILY Vitals/I & O Vital Sign - Last 24 Hours 08/19/16 08/19/16 08/19/16 08/19/16 06:55 07:38 07:47 08:17 Temp 98.1 98.1 Pulse 104 98 Resp 20 18 20 B/P 146/80 156/70 Pulse Ox 98 97 97 96 O2 Delivery Room Air Room Air Room Air Room Air 08/19/16 08/19/16 08/19/16 08/19/16 08:18 08:43 08:43 08:46 Pulse 104 105 Resp 20 16 B/P 168/93 164/69 Pulse Ox 98 97 96 95 O2 Delivery Room Air Room Air Room Air 08/19/16 08/19/16 08/19/16 08/19/16 09:25 09:30 10:08 10:38 Resp 18 18 18 O2 Delivery Room Air Room Air Room Air Room Air 08/19/16 11:00 Temp 99.3 99.3 Pulse 106 Resp 16 B/P 136/63 Pulse Ox 88 O2 Delivery Room Air SUSY TOLENTINO MD Aug 19, 2016 13:33
[2016-08-19] MEDS: FENTANYL PF 100 MCG/2 ML VIAL. IV PRN ×2 (13:50→16:38)
[2016-08-19] MEDS: LOSARTAN POTASSIUM 50 MG TABLET. PO SCH (13:56)
[2016-08-19] MEDS ORDERED: MORPHINE SULFATE 4 MG/ML DISP.SYRIN. IV PRN (14:00)
[2016-08-19] MEDS ORDERED: MORPHINE SULFATE 10 MG/ML VIAL. IV PRN ×2 (14:00)
--- NOTE | 2016-08-19 14:38 | HP ---
ADMIT DATE: 08/19/2016 CHIEF COMPLAINT: Right knee pain after a fall. HISTORY OF PRESENT ILLNESS: The patient is a 56-year-old female, who was recently diagnosed with metastatic renal cell cancer. She had a bone metastasis in the right proximal tibia and was receiving radiation treatment to this. The patient reports that on the morning of admission, when she got out of bed to feed her cat, she felt the bone pop and then fell to the floor with immediate increase in her chronic pain in the area. Evaluation in the Emergency Room showed a pathologic fracture of the right proximal tibia. There is also a lateral malleolar fracture which may be old and incompletely healed, this did not appeared to be a pathologic fracture. Orthopedic surgery was consulted and the patient was admitted for further treatment. PAST MEDICAL HISTORY: Renal cell cancer with metastases to brain, bone, lungs; colon cancer; diabetes mellitus type 2 insulin-dependent; hypertension and chronic kidney disease, stage 3. PAST SURGICAL HISTORY: Resection of brain metastasis, 08/02; colectomy, 12/29; left nephrectomy, 12/29 and bilateral tubal ligation. ALLERGIES: The patient has no known drug allergies. HOME MEDICATIONS: Amlodipine 5 mg daily, losartan 100 mg daily, NovoLog insulin, Levemir insulin, gabapentin 100 mg b.i.d. and Percocet p.r.n. FAMILY HISTORY: Noncontributory. SOCIAL HISTORY: The patient is , but her is incarcerated. She does not smoke cigarettes or drink alcohol. REVIEW OF SYSTEMS: The patient denies fever or chills. She denies cough or shortness of breath. She denies chest pain or palpitations. She denies abdominal pain, nausea or vomiting. The pain, near her right knee, from the bone metastasis, has been fairly well controlled with Percocet. She has been receiving radiation treatment to the area, but cannot tell that this is helped much with the pain so far. She reports her blood sugars have been fairly well controlled with insulin. She had some expressive aphasia associated with her brain tumor and this has been improved postoperatively, she and her daughter feel that her speech is pretty much back to normal for her. She has been receiving outpatient radiation treatment to her brain and her right tibia. She has not started chemotherapy with Oncology yet. She was discharged from [place] to rehab and has been home from rehabilitation for about 2 weeks. PHYSICAL EXAMINATION: GENERAL: The patient is alert and oriented x 3, resting comfortably in bed, in no acute distress. HEENT: PERRL, EOMI, sclerae clear, well-healed incision on the left parietal skull. Oropharynx: Mucous membranes moist. NECK: Supple, without lymphadenopathy. CHEST: Clear to auscultation. CARDIOVASCULAR: Regular rhythm without murmur. ABDOMEN: Soft, nontender, normoactive bowel sounds are present. EXTREMITIES: The left lower extremity is without edema. The right lower extremity has a splint in place. NEUROLOGIC: The patient's speech is clear and understandable. ASSESSMENT AND PLAN: 1. Pathologic fracture, right proximal tibia. We are awaiting ortho input as to further treatment of this and further evaluation of the possible right ankle fracture. Oral and IV pain medications have been ordered. 2. Metastatic renal cell cancer. The patient is recovering well from the resection of her brain mass last month. Expect that radiation treatment will be continued while she is here. 3. Diabetes mellitus type 2. This is not usually well controlled for her and her blood sugar was 300 at admission. We will resume her insulins and adjust doses as needed. 4. Hypertension. Resume home medications and follow. 5. Chronic kidney disease, stage 3. This is stable on the lab. SUSY TOLENTINO MD DR: KAYLA/nikkie JOB#: [id number] / [id number] AUREA
[2016-08-19 15:00] VITALS: BP 109/55
[2016-08-19] MEDS: INSULIN ASPART 300 UNITS/3 ML INSULN.PEN SQ SCH ×2 (16:42→16:43)
--- NOTE | 2016-08-19 16:48 | PDOC ---
Provider Note Provider Note 56 yo woman with renal cell carcinoma s/p nephrectomy 12/2012. Osseous, brain and pulmonary recurrence 08/02. She underwent left parietal craniotomy for solitary met. She had a significant lytic osseous met in prox right tibia at dx. Prior to initiating treatment, due to the significant lesion in the prox tibia, I had Dr Wyatt Arana review the plane films. While patient was at risk for path fx, there was no surgical intervention that could be done prophylactically. He advised knee brace with hinge for lateral stability. I did communicate this to the patient. She had been undergoing palliative radiation to resection bed in left parietal lobe and to right tibia through last week. 5 of 10 treatments thus far. 15 Gy to resection bed and 20 Gy to tibia thus far through 08/16. She was ambulating this am and had a popping sensation with increased pain in right prox tibia-knee this am. Fell onto walker with right arm Xray Path fx through central aspect of prox tibial lytic lesion. Non- displaced. PE In mild pain distress. No adenopathy. Mild right wrist tenderness, no swelling. Significant right prox tibia tenderness and diffuse swelling.In splint wrap. Impression: Metastatic renal cell carcinoma. Now with path fracture through known rt tibia lytic lesion. S/ 5 of 10 course of palliative radiation. Await ortho eval. If no intention then best choice may be to resume radiation once pain is stabilized. Discussed with patient. LYUDMILA RODRIGUEZ MD Aug 19, 2016 16:48
[2016-08-19 19:00] VITALS: BP 133/64
[2016-08-19] MEDS: OXYCODONE/APAP 5/325 TABLET. PO PRN ×2 (19:13→23:25)
[2016-08-19] MEDS: GABAPENTIN 100 MG CAPSULE. PO SCH (20:17)
[2016-08-19] MEDS ORDERED: INSULIN DETEMIR 300 UNITS/3 ML INSULN.PEN. SQ SCH (21:00)
[2016-08-19 23:00] VITALS: BP 143/75
[2016-08-20 03:00] VITALS: BP 117/64
[2016-08-20 04:25] LABS: BASO % 1 % (0-3); EOS % 1 % (0-3); HEMATOCRIT 34.5 % (36.0-47.0); HEMOGLOBIN 11.3 g/dL (12.0-15.5); LYMPH # 1.9 x10^3/uL (1.0-4.8); LYMPH % 24 % (24-48); MEAN CORPUSCULAR HEMOGLOBIN 28 pg (25-35); MEAN CORPUSCULAR HGB CONC 33 g/dL (31-37); MEAN CORPUSCULAR VOLUME 86 fL (79-100); MONO % 12 % (0-9); NEUT % 63 % (31-73); PLATELET COUNT 218 x10^3/uL (140-400); RED BLOOD COUNT 4.02 x10^6/uL (3.50-5.40); RED CELL DISTRIBUTION WIDTH 14.2 % (11.5-14.5); WHITE BLOOD COUNT 8.1 x10^3/uL (4.0-11.0)
[2016-08-20 04:41] LABS: CALCIUM 10.1 mg/dL (8.5-10.1); CREATININE 1.3 mg/dL (0.6-1.0); GFR 42.1
[2016-08-20 07:00] VITALS: BP 118/49
[2016-08-20] MEDS: INSULIN ASPART 300 UNITS/3 ML INSULN.PEN SQ SCH ×6 (07:30→18:15)
[2016-08-20] MEDS: GABAPENTIN 100 MG CAPSULE. PO SCH (09:00)
[2016-08-20] MEDS: OXYCODONE/APAP 5/325 TABLET. PO PRN ×2 (09:00→14:44)
[2016-08-20] MEDS: LOSARTAN POTASSIUM 50 MG TABLET. PO SCH (09:00)
[2016-08-20] MEDS ORDERED: AMLODIPINE BESYLATE 5 MG TABLET. PO SCH (09:00)
--- NOTE | 2016-08-20 09:44 | PDOC ---
PROGRESS NOTES Subjective Subjective Patient reports that pain in right leg is OK with present meds. Objective Objective Vital Signs Date Time Temp Pulse Resp B/P Pulse Ox O2 Delivery O2 Flow Rate FiO2 08/20/16 09:00 18 Room Air 08/20/16 09:00 94 118/49 08/20/16 07:00 98.7 91 98.7 Intake and Output 08/20/16 07:00 Intake Total 0 ml Balance 0 ml Intake Oral 0 ml # Voids 3 Physical Exam Abdomen: Normal bowel sounds, Soft, No tenderness Heart: Regular rate Extremities: No edema (splint in place R LE) General: Alert, Oriented X3, No acute distress Lungs: Clear to auscultation Assessment Assessment Problems Medical Problems: (1) Ankle fracture, right Status: Acute (2) Pathological fracture of right tibia Status: Acute (3) Right malleolar fracture Status: Acute (4) Tibia fracture Status: Acute Plan Plan of Care 1. Pathologic fracture of right tibia - Ortho consult still pending. Continue po and IV pain meds as needed. 2. metastatic renal cell cancer - presently stable, resume XRT as per Dr Deng. 3. HTN - well controlled, continue present meds. 4. DM2 - fair control, increase insulins. Comment Review of Relevant I have reviewed the following items tiffany (where applicable) has been applied. Labs Laboratory Tests Test 08/19/16 07:45 08/19/16 10:23 08/19/16 16:11 08/19/16 20:12 White Blood Count 8.3x10^3/uL (4.0-11.0) Red Blood Count 4.23x10^6/uL (3.50-5.40) Hemoglobin 11.8g/dL (12.0-15.5) Hematocrit 36.1% (36.0-47.0) Mean Corpuscular Volume 86fL (79-100) Mean Corpuscular Hemoglobin 28pg (25-35) Mean Corpuscular Hemoglobin Concent 33g/dL (31-37) Red Cell Distribution Width 14.0% (11.5-14.5) Platelet Count 235x10^3/uL (140-400) Neutrophils (%) (Auto) 77% (31-73) Lymphocytes (%) (Auto) 14% (24-48) Monocytes (%) (Auto) 8% (0-9) Eosinophils (%) (Auto) 1% (0-3) Basophils (%) (Auto) 1% (0-3) Neutrophils # (Auto) 6.4x10^3uL (1.8-7.7) Lymphocytes # (Auto) 1.1x10^3/uL (1.0-4.8) Monocytes # (Auto) 0.6x10^3/uL (0.0-1.1) Eosinophils # (Auto) 0.1x10^3/uL (0.0-0.7) Basophils # (Auto) 0.0x10^3/uL (0.0-0.2) Sodium Level 139mmol/L (136-145) Potassium Level 4.1mmol/L (3.5-5.1) Chloride Level 103mmol/L (98-107) Carbon Dioxide Level 26mmol/L (21-32) Anion Gap 10 (6-14) Blood Urea Nitrogen 23mg/dL (7-20) Creatinine 1.4mg/dL (0.6-1.0) Estimated GFR (Cockcroft-Gault) 38.6 BUN/Creatinine Ratio 16 (6-20) Glucose Level 311mg/dL (70-99) Calcium Level 10.9mg/dL (8.5-10.1) Total Bilirubin 0.6mg/dL (0.2-1.0) Aspartate Amino Transf (AST/SGOT) 13U/L (15-37) Alanine Aminotransferase (ALT/SGPT) 22U/L (14-59) Alkaline Phosphatase 104U/L (46-116) Troponin I Quantitative < 0.017ng/mL (0.000-0.055) Total Protein 6.6g/dL (6.4-8.2) Albumin 3.1g/dL (3.4-5.0) Albumin/Globulin Ratio 0.9 (1.0-1.7) Glucose (Fingerstick) 320mg/dL (70-99) 387mg/dL (70-99) 330mg/dL (70-99) Test 08/20/16 03:15 08/20/16 07:06 White Blood Count 8.1x10^3/uL (4.0-11.0) Red Blood Count 4.02x10^6/uL (3.50-5.40) Hemoglobin 11.3g/dL (12.0-15.5) Hematocrit 34.5% (36.0-47.0) Mean Corpuscular Volume 86fL (79-100) Mean Corpuscular Hemoglobin 28pg (25-35) Mean Corpuscular Hemoglobin Concent 33g/dL (31-37) Red Cell Distribution Width 14.2% (11.5-14.5) Platelet Count 218x10^3/uL (140-400) Neutrophils (%) (Auto) 63% (31-73) Lymphocytes (%) (Auto) 24% (24-48) Monocytes (%) (Auto) 12% (0-9) Eosinophils (%) (Auto) 1% (0-3) Basophils (%) (Auto) 1% (0-3) Neutrophils # (Auto) 5.0x10^3uL (1.8-7.7) Lymphocytes # (Auto) 1.9x10^3/uL (1.0-4.8) Monocytes # (Auto) 1.0x10^3/uL (0.0-1.1) Eosinophils # (Auto) 0.1x10^3/uL (0.0-0.7) Basophils # (Auto) 0.0x10^3/uL (0.0-0.2) Sodium Level 138mmol/L (136-145) Potassium Level 4.0mmol/L (3.5-5.1) Chloride Level 101mmol/L (98-107) Carbon Dioxide Level 27mmol/L (21-32) Anion Gap 10 (6-14) Blood Urea Nitrogen 19mg/dL (7-20) Creatinine 1.3mg/dL (0.6-1.0) Estimated GFR (Cockcroft-Gault) 42.1 Glucose Level 195mg/dL (70-99) Calcium Level 10.1mg/dL (8.5-10.1) Glucose (Fingerstick) 162mg/dL (70-99) Laboratory Tests Test 08/19/16 10:23 08/19/16 16:11 08/19/16 20:12 08/20/16 03:15 Glucose (Fingerstick) 320mg/dL (70-99) 387mg/dL (70-99) 330mg/dL (70-99) White Blood Count 8.1x10^3/uL (4.0-11.0) Red Blood Count 4.02x10^6/uL (3.50-5.40) Hemoglobin 11.3g/dL (12.0-15.5) Hematocrit 34.5% (36.0-47.0) Mean Corpuscular Volume 86fL (79-100) Mean Corpuscular Hemoglobin 28pg (25-35) Mean Corpuscular Hemoglobin Concent 33g/dL (31-37) Red Cell Distribution Width 14.2% (11.5-14.5) Platelet Count 218x10^3/uL (140-400) Neutrophils (%) (Auto) 63% (31-73) Lymphocytes (%) (Auto) 24% (24-48) Monocytes (%) (Auto) 12% (0-9) Eosinophils (%) (Auto) 1% (0-3) Basophils (%) (Auto) 1% (0-3) Neutrophils # (Auto) 5.0x10^3uL (1.8-7.7) Lymphocytes # (Auto) 1.9x10^3/uL (1.0-4.8) Monocytes # (Auto) 1.0x10^3/uL (0.0-1.1) Eosinophils # (Auto) 0.1x10^3/uL (0.0-0.7) Basophils # (Auto) 0.0x10^3/uL (0.0-0.2) Sodium Level 138mmol/L (136-145) Potassium Level 4.0mmol/L (3.5-5.1) Chloride Level 101mmol/L (98-107) Carbon Dioxide Level 27mmol/L (21-32) Anion Gap 10 (6-14) Blood Urea Nitrogen 19mg/dL (7-20) Creatinine 1.3mg/dL (0.6-1.0) Estimated GFR (Cockcroft-Gault) 42.1 Glucose Level 195mg/dL (70-99) Calcium Level 10.1mg/dL (8.5-10.1) Test 08/20/16 07:06 Glucose (Fingerstick) 162mg/dL (70-99) Medications Current Medications Morphine Sulfate 4 mg 1X ONCE IV Last administered on 08/19/16 07:38; Start at 08:00; Stop 08/19/16 at 08:01; Status DC Ondansetron HCl (Zofran) 4 mg 1X ONCE IV Last administered on 08/19/16 07:37; Start 08/19/16 at 08:00; Stop 08/19/16 at 08:01; Status DC Ondansetron HCl (Zofran) 4 mg STK-MED ONCE .ROUTE ; Start 08/19/16 at 07:24; Stop 08/19/16 at 07:25; Status DC Morphine Sulfate 4 mg STK-MED ONCE .ROUTE ; Start 08/19/16 at 07:25; Stop at 07:26; Status DC Hydromorphone HCl (Dilaudid) 1 mg PRN Q15MIN PRN IV/SQ PAIN GREATER THAN 3/10 Last administered on 08/19/16 08:43; Start 08/19/16 at 08:15; Stop 08/19/16 at 13: 30; Status DC Hydromorphone HCl (Dilaudid) 1 mg PRN Q3HRS PRN IV pain Last administered on 10:08; Start 08/19/16 at 08:30; Stop 08/19/16 at 13:30; Status DC Ondansetron HCl (Zofran) 4 mg PRN Q6HRS PRN IV NAUSEA/VOMITING; Start 08/19/16 at 08:30 Amlodipine Besylate (Norvasc) 5 mg DAILY PO Last administered on 08/20/16 08:59 ; Start 08/20/16 at 09:00 Gabapentin (Neurontin) 100 mg BID PO Last administered on 08/20/16 09:00; Start 08/19/16 at 21:00 Insulin Aspart (Novolog) 10 units TIDAC SQ Last administered on 08/19/16 16:42 ; Start 08/19/16 at 16:30 Losartan Potassium (Cozaar) 100 mg DAILY PO Last administered on 08/20/16 09:00 ; Start 08/19/16 at 15:00 Oxycodone/ Acetaminophen (Percocet 5/325) 1 tab PRN Q4HRS PRN PO PAIN; Start at 13:30 Insulin Detemir (Levemir) 40 units QHS SQ Last administered on 08/19/16 20:22; Start 08/19/16 at 21:00 Morphine Sulfate 2 mg PRN Q2HR PRN IV PAIN; Start 08/19/16 at 13:30 Docusate Sodium (Colace) 100 mg PRN DAILY PRN PO CONSTIPATION; Start 08/19/16 at 13:30 Insulin Aspart (Novolog) 0-9 UNITS TIDWMEALS SQ Last administered on 08/20/16 09:04; Start 08/19/16 at 17:00 Dextrose (Dextrose 50%-Water Syringe) 12.5 gm PRN Q15MIN PRN IV SEE COMMENTS; Start 08/19/16 at 13:30 Fentanyl Citrate (Fentanyl 2ml Vial) 50 mcg PRN Q2HR PRN IV PAIN Last administered on 08/19/16 16:38; Start 08/19/16 at 13:45 Oxycodone/ Acetaminophen (Percocet 5/325) 2 tab PRN Q4HRS PRN PO PAIN Last administered on 08/20/16 09:00; Start 08/19/16 at 14:00 Morphine Sulfate 4 mg PRN Q2HR PRN IV PAIN Last administered on 08/20/16 03:11 ; Start 08/19/16 at 14:00 Morphine Sulfate 6 mg PRN Q2HRS PRN IV PAIN; Start 08/19/16 at 14:00 Morphine Sulfate 8 mg PRN Q2HRS PRN IV PAIN; Start 08/19/16 at 14:00 Active Scripts Active Oxycodone-Acetaminophen 5-325 (Oxycodone Hcl/Acetaminophen) 1 Each Tablet 1 Tab PO PRN Q4HRS PRN Cozaar (Losartan Potassium) 50 Mg Tablet 100 Mg PO DAILY Gabapentin 100 Mg Capsule 100 Mg PO BID Reported Levemir (Insulin Detemir) 100 Unit/1 Ml Vial 25 Unit SQ HS Novolog Flexpen (Insulin Aspart) 100 Unit/1 Ml Insuln.pen Unit SQ TIDAC Norvasc (Amlodipine Besylate) 5 Mg Tablet 1 Tab PO DAILY Vitals/I & O Vital Sign - Last 24 Hours 08/19/16 08/19/16 08/19/16 08/19/16 10:08 10:38 11:00 13:50 Temp 99.3 99.3 Pulse 106 Resp 18 18 16 18 B/P 136/63 Pulse Ox 88 O2 Delivery Room Air Room Air Room Air Room Air 08/19/16 08/19/16 08/19/16 08/19/16 13:56 15:00 16:38 17:41 Temp 99.9 99.9 Pulse 136 113 Resp 16 18 18 B/P 63/103 109/55 Pulse Ox 88 O2 Delivery Room Air Room Air Room Air 08/19/16 08/19/16 08/19/16 08/19/16 19:00 19:13 20:00 23:00 Temp 98.7 97.7 98.7 97.7 Pulse 108 98 Resp 18 16 18 B/P 133/64 143/75 Pulse Ox 92 93 O2 Delivery Room Air Room Air Room Air Room Air 08/19/16 08/20/16 08/20/16 08/20/16 23:25 00:25 03:00 03:11 Temp 98.4 98.4 Pulse 92 Resp 16 16 18 16 B/P 117/64 Pulse Ox 90 O2 Delivery Room Air Room Air Room Air Room Air 08/20/16 08/20/16 08/20/16 08/20/16 03:44 07:00 07:30 08:59 Temp 98.7 98.7 Pulse 94 94 Resp 16 16 B/P 118/49 118/49 Pulse Ox 91 O2 Delivery Room Air Room Air Room Air 08/20/16 08/20/16 09:00 09:00 Pulse 94 Resp 18 B/P 118/49 O2 Delivery Room Air Intake and Output 08/19/16 08/19/16 08/20/16 15:00 23:00 07:00 Intake Total 0 ml Balance 0 ml SUSY TOLENTINO MD Aug 20, 2016 09:44
[2016-08-20 11:00] VITALS: BP 105/53
[2016-08-20 15:00] VITALS: BP 124/52
--- NOTE | 2016-08-20 15:23 | PDOC ---
Provider Note Provider Note patient seen briefly, and case discussed with Dr. Deng her radiation oncologist. XR images/report and chart reviewed. pathologic tibia fx from metastatic renal cell CA. Surgical intervention should be considered due to life expectancy. I recommend tertiary care referral due to large tumor mass in proximal tibia. Arrangements made for transfer to Dr. Jacek [facility] orthopaedics. BRENDA CHAHAL MD Aug 20, 2016 15:23
--- NOTE | 2016-08-20 16:09 | PDOC ---
Provider Note Provider Note Patient comfortable now at rest with current pain coverage. Discussed situation with Dr Tamayo and Yasmeen. Patient really needs surgical stabilization. Doubt that she will heal and gain weightbearing with continuing radiation particularly with renal cell carcinoma which is notorious potential radio-resistance. Given location of lesion and path fracture and known vascularity of renal cell carcinoma, they understandibly prefer to transfer to [facility]. Discussed with patient. Transfer to [facility] in progress as noted by Dr Tamayo's note. LYUDMILA RODRIGUEZ MD Aug 20, 2016 16:09
[2016-08-20] MEDS ORDERED: INSULIN DETEMIR 300 UNITS/3 ML INSULN.PEN. SQ SCH (21:00)
--- NOTE | 2016-08-22 21:39 | DS ---
DATE OF DISCHARGE: 08/20/2016 CHIEF COMPLAINT: Right knee pain after a fall. HISTORY OF PRESENT ILLNESS: The patient is a 56-year-old female, who was recently diagnosed with metastatic renal cell cancer. She had a bone metastasis in the right proximal tibia that caused her significant pain and she had been receiving radiation treatment to this. The patient reported that on the morning of admission when she gets out of bed to feed her cat, she felt the bone pop and then fell to the floor with immediate increase in her chronic pain in the area. Evaluation in the Emergency Room showed pathologic fracture of the right proximal tibia and the patient was admitted for further treatment. HOSPITAL COURSE: The patient was admitted and seen in consultation by Dr. Tamayo and Dr. Deng. Her pain was controlled with oral and IV pain medication. Dr. Tamayo felt that the patient would benefit from surgical intervention on her fracture, but that this would be best done at due to the complexity of the case. This was discussed with Dr. Deng and with the patient, who were in agreement. On 08/20/2016, she was transferred to the orthopedic service at for further treatment. FINAL DIAGNOSES: 1. Metastatic renal cell cancer. 2. Pathologic fracture of the right tibia. 3. Hypertension. 4. Diabetes mellitus type 2. DISCHARGE MEDICATIONS: Levemir 50 units at bedtime, amlodipine 5 mg daily, gabapentin 100 mg b.i.d., NovoLog insulin 10 units t.i.d. a.c. with sliding scale, losartan 100 mg daily, morphine IV p.r.n. and Percocet 5/325 p.r.n. FOLLOWUP: With Dr. Patino after discharge from . SUSY PATINO MD DR: KAYLA/nikkie JOB#: [id number] / [id number]
== END 2016-08-20 18:52 | disposition short-term general hospital (02) | DRG 543 ==
LOC: ER 06:53 → 4 NORTH 07:48
PROVIDERS: ADMIT Family Medicine; ATTEND Family Medicine
DX: M84.461A Pathological fracture, right tibia, initial encounter for fracture (principal); C79.51 Secondary malignant neoplasm of bone; C64.9 Malignant neoplasm of unspecified kidney, except renal pelvis; I12.9 Hypertensive chronic kidney disease with stage 1 through stage 4 chronic kidney disease, or unspecified chronic kidney disease; E11.22 Type 2 diabetes mellitus with diabetic chronic kidney disease; N18.3 Chronic kidney disease, stage 3 (moderate); Z79.4 Long term (current) use of insulin; Z85.841 Personal history of malignant neoplasm of brain; Z85.830 Personal history of malignant neoplasm of bone; Z90.49 Acquired absence of other specified parts of digestive tract; Z85.038 Personal history of other malignant neoplasm of large intestine; Z90.5 Acquired absence of kidney; Z92.3 Personal history of irradiation; Z85.528 Personal history of other malignant neoplasm of kidney
CPT/HCPCS: 29515; 36415; 73562; 73590; 73620; 80048; 80053; 82947; 84484; 85027; 96374; 96375; J1170; J1815; J2270; J2405; J3010; 99285-25